=== PATIENT | female | born 1930 | race Caucasian/White ===

== ENCOUNTER 2016-04-25 18:06 | Inpatient (IN) | payer OTHER ==
[~2016-04-25] VITALS: Ht 167.6 cm; Wt 53.7 kg
[~2016-04-25 18:06] MED LIST: /AMLO25TA PO; /MOXI40TA OR; ALB2.5NEB INH; ALBU17IN INH; ALBU17IN2 INH; ALBUTEROL INH; AMLO10TA2 PO; AMLO5TAB2 PO; ASPI325T OR; ASPI81TA85 PO; AUGM500T34 PO; AZIT250T3 PO; Azithromycin PO; COMBAER6 INH; COZA50TA18 OR; FURO40TA2 PO; IRON65TA PO; MAALSUS8 PO; MECL12.5 OR; MICR8CAP PO; NICO21DI4 TD; NICO21PAT TD; OMEP40CA2 PO; PARO20TA2 PO; PRAV20TA2 PO; PRAV40TA PO; PRED10TA PO; PRED20TAB PO; SYMB16INH INH; SYMB80AE IN; TRAM50TA2 OR; TYLE167L PO; TYLE325T5 PO
[2016-04-25 19:22] LABS: BASO % 0.1 % (0.0-1.0); EOS # 0.1 K/mm3 (0.0-0.50); EOS % 0.2 % (0.0-3.0); LARGE UNSTAINED CELL # 0.1 K/mm3 (0.0-0.4); LARGE UNSTAINED CELL % 0.6 % (0.0-4.0); LYMPH # 0.3 K/mm3 (1.5-4.5); LYMPH % 1.4 % (24.0-44.0); MEAN CORPUSCULAR HEMOGLOBIN 24.4 pg (27.0-33.0); MEAN CORPUSCULAR HGB CONC 30.5 g/dl (32.0-36.5); MEAN CORPUSCULAR VOLUME 79.7 fl (80.0-96.0); MONO # 1.2 K/mm3 (0.0-0.8); MONO % 5.4 % (0.0-5.0); NEUTROPHILS # 20.9 K/mm3 (1.8-7.7); NEUTROPHILS % 92.2 % (36.0-66.0); PLATELET COUNT, AUTOMATED 345 k/mm3 (150-450); RED CELL DISTRIBUTION WIDTH 17.8 % (11.5-14.5); WHITE BLOOD COUNT 22.6 K/mm3 (4.0-10.0)
[2016-04-25 19:57] LABS: ABG BASE EXCESS 8.7 (-2.0-2.0); ABG DEVICE NASAL CANN; ABG HCO3 35.5 MEQ/L (22.0-26.0); ABG PARTIAL PRESSURE CO2 58.1 mmHg (35.0-45.0); ABG PARTIAL PRESSURE O2 66.3 mmHg (75.0-100.0); ABG STANDARD HCO3 32.4 MEQ/L (22.0-26.0); ABG TOTAL CO2 37.3 MEQ/L (23.0-31.0); ABG pH (ARTERIAL) 7.404 UNITS (7.350-7.450)
[2016-04-25 20:08] LABS: ANION GAP 8 MEQ/L (8-16); BLOOD UREA NITROGEN 19 MG/DL (7-18); CALCIUM LEVEL 11.5 MG/DL (8.8-10.2); CARBON DIOXIDE LEVEL 34 MEQ/L (21-32); CHLORIDE LEVEL 97 MEQ/L (98-107); CREATININE FOR GFR 1.37 MG/DL (0.55-1.02); GLOMERULAR FILTRATION RATE 39.1 (>32); GLUCOSE, FASTING 177 MG/DL (83-110); POTASSIUM SERUM 3.7 MEQ/L (3.5-5.1); SODIUM LEVEL 139 MEQ/L (136-145)
[2016-04-25] MEDS: HEPARIN SOD (PORCINE) 5000 UNITS/ML VIAL SQ SCH (21:00)
--- NOTE | 2016-04-25 22:20 | REPUSA ---
CT of the chest without contrast Clinical statement: hypoxia, elevated white cell count. Technique: Multiple axial CT images were obtained with 5 mm cuts through the chest without administra tion of contrast. Comparison: 07/30/2013. Findings: There is no thoracic lymphadenopathy. The 5 mm nodule in the left lobe of the thyroid gland is stable. Moderate bilateral emphysematous changes are noted, and have worsened since the prior john paul dy. There is a new small left lower lobe pleural effusion. There is infiltrate in the superior segmen t of the left lower lobe. There is a left upper lobe infiltrate. There is also a left lingular infilt rate. A 7 mm nodule in the lateral superior segment of the left lower lobe is grossly stable. Limited imaging of the upper abdomen does not demonstrate any acute abnormalities. There are no suspicious o sseous lesions. Mild spondylotic changes are seen in the lower thoracic and upper lumbar spine. Impression: 1. New infiltrates demonstrated within the left upper and left lower lobes as described. Small left-s ided pleural effusion is also new. 2. 7 mm nodule in the superior segment of the left lower lobe was seen on the prior study and is nino sly unchanged. 3. Worsening moderate emphysematous changes bilaterally. 4. Stable subcentimeter low attenuation nodule in the left lobe of the thyroid gland.
[2016-04-25] MEDS ORDERED: ZOSYN 2.25 GM VIAL (J2543) As Ordered ONE (22:50)
[2016-04-25] MEDS ORDERED: AMLO10TA2 PO (23:05)
[2016-04-25] MEDS ORDERED: TRAM50TA2 PO (23:05)
[2016-04-25] MEDS ORDERED: PAXI10TA2 PO (23:05)
[2016-04-25] MEDS ORDERED: IPRATROPIUM 0.5MG/ALBUTEROL 2.5MG INH SOL UD 3ML (DUONEB)(J7620) NEB PRN (23:15)
--- NOTE | 2016-04-26 00:56 | EDDOCDS ---
Physician Documentation [facility] Name: Shell Ellis Age: 86 yrs Sex: Female : 1930 Arrival Date: 04/25/2016 Time: 18:06 Bed 10 Private MD: Disposition: 04/25 22:43 Critical Care:. pc Disposition: 04/25/16 22:46 Hospitalization ordered by Nolvia Wahl for Inpatient Admission. Preliminary diagnosis are Bronchopneumonia, unspecified organism - CJ, LLL, Pleural effusion in conditions classified elsewhere - left, Hypoxemia, Chronic obstructive pulmonary disease with acute lower respiratory infection, Unspecified dementia. - Bed requested for PCU. - Status is Inpatient Admission. ko2 - Condition is Stable. - Problem is new. - Symptoms have improved. HPI: 19:36 This 86 yrs old Female presents to ER via Ambulance with complaints of pc Altered Mental Status. 19:36 The history is obtained from the patient's family/friend, EMS providers. Her son states pc that she can no longer live on her own. She has been falling more frequently, not eating very well, and has become more confused with underlying dementia. There is no report of any recent illness: no vomiting or diarrhea, no fevers or chills, no cough or URI symptoms. The family thought she might have had a facial droop earlier today but none on arrival. She is unable to provide any history. The patient has not recently seen a physician. Historical: - Allergies: no known allergies; - Home Meds: 1. paroxetine HCl 10 mg Oral tab 1 tab once daily 2. tramadol 50 mg Oral tab 1 tab daily 3. amlodipine 10 mg Oral tab 1 tab once daily 4. Oxygen 3L nightly - PMHx: COPD; Hypertension; Depression; Dementia; - PSHx: Hysterectomy; - The history from nurses notes was reviewed: and elements of the historical information I have obtained differs from that reported to nursing. - Social history: No barriers to communication noted, The patient speaks fluent [place], Smoking status: Patient uses tobacco products, heavy tobacco smoker. - : The pt / caregiver states he / she is not on anticoagulants. Home medication list is obtained from [employer] import data. - Hospitalizations: : No recent hospitalization is reported. - Exposure Risk Screening:: Unable to Assess. - Immunization history:: All immunizations up-to-date. - Family history: Not pertinent. - Social history:: the patient smokes cigarettes the patient does not drink alcohol. ROS: 19:42 All systems are negative except as listed. pc Exam: 19:42 General Appearance: no acute distress, alert. pc 19:42 EENT: normal eye inspection, ears, nose and throat normal, pharynx normal, mucous membranes moist 19:42 Neck: The exam reveals no acute abnormalities. ROM is normal and painless. No nuchal rigidity is noted.. 19:42 Respiratory: no respiratory distress, Breath sounds: wheezing, scattered. 19:42 CVS: regular pulse rate, regular rhythm, normal S1 and S2, no murmurs, strong peripheral pulses, normal capillary refill. 19:42 Abdomen: soft, non-tender, no organomegaly, normal bowel sounds. 19:42 Back: normal inspection. 19:42 Skin: skin color is normal, warm, dry. 19:42 Extremities: Multiple areas of healed abrasions and skin tears on all extremities . 19:42 Neuro: cranial nerves normal as tested, no motor deficits, no sensory deficits, unable to test orientation because of chronic dementia. 19:42 Psych: normal mood. Vital Signs: 18:12 BP 143 / 65; Pulse 80; Resp 20; Temp 97.4(O); ja5 19:04 Pulse 72 MON; Pulse Ox 90% ; mlc 19:05 BP 126 / 60 (auto/); mlc 19:06 Pulse Ox 91% on NC; ja5 19:19 Pulse 76 MON; Pulse Ox 95% ; mlc 19:20 BP 144 / 58 (auto/); mlc 19:33 Pulse 76 MON; Pulse Ox 94% ; mlc 19:34 Pulse 82 MON; Pulse Ox 93% on 3 lpm NC; mlc 19:35 BP 120 / 58 (auto/); mlc 20:04 Pulse 76 MON; Pulse Ox 88% ; mlc 20:05 BP 110 / 57 (auto/); mlc 20:20 BP 120 / 63 (auto/); mlc 20:35 BP 125 / 58 (auto/); mlc 20:50 BP 110 / 58 (auto/); mlc 20:50 Pulse 74 MON; Pulse Ox 90% ; mlc 21:05 BP 148 / 67 (auto/); mlc 21:19 Pulse 72 MON; Pulse Ox 94% ; mlc 21:20 BP 116 / 55 (auto/); mlc 21:35 BP 103 / 53 (auto/); mlc 21:35 Pulse 70 MON; Pulse Ox 95% ; mlc 21:56 Pulse 72 MON; Pulse Ox 93% ; mlc 21:57 BP 101 / 56 (auto/); mlc 22:05 BP 98 / 56 (auto/); mlc 22:18 Pulse 76 MON; Pulse Ox 90% on 4 lpm NC; mlc 22:20 BP 101 / 55 (auto/); mlc 22:20 Pulse 78 MON; Pulse Ox 91% ; mlc 22:35 BP 94 / 50 (auto/); mlc 22:35 Pulse 76 MON; Pulse Ox 92% ; mlc 22:41 BP 115 / 55 (auto/); mlc 22:42 Pulse 82 MON; Pulse Ox 92% ; mlc 22:45 Temp 99.0(TE); mlc 22:50 BP 106 / 51 (auto/); mlc 22:51 Pulse 72 MON; Pulse Ox 94% ; mlc 23:05 BP 112 / 55 (auto/); mlc 23:06 Pulse 72 MON; Pulse Ox 93% ; mlc 23:10 Weight 51 kg / 112.44 lbs (M); mlc 23:20 BP 99 / 55 (auto/); mlc 23:21 Pulse 72 MON; Pulse Ox 94% ; mlc 23:35 BP 102 / 57 (auto/); mlc 23:36 Pulse 74 MON; Pulse Ox 91% ; mlc 23:50 BP 106 / 53 (auto/); mlc 23:51 Pulse 72 MON; Pulse Ox 94% ; mlc 04/26 00:05 BP 99 / 50 (auto/); mlc 00:06 Pulse 74 MON; Pulse Ox 92% ; mlc 00:20 BP 102 / 52 (auto/); mlc 00:21 Pulse 76 MON; Pulse Ox 92% ; mlc 00:35 BP 101 / 50 (auto/); mlc 00:36 Pulse 78 MON; Pulse Ox 93% ; mlc 00:49 BP 112 / 54; Pulse 82; Resp 18; Temp 99.5; Pulse Ox 91% on 4 lpm NC; Pain 0/10; mlc MDM: 04/25 18:28 Fingerstick Blood Sugar Ordered. EDMS 18:35 Fingerstick Blood Sugar Reviewed. pc 18:36 CT Head Without Contrast Ordered. EDMS 19:14 -Blood Culture (Adults Only), peripheral from different site, or from device/port/PICC pc etc. if present ordered. 19:14 Call Respiratory ordered. pc 19:14 Chemist Steroids/Pulse Ox/q 15 min VS ordered. pc 19:14 IV Saline Lock ordered. pc 19:14 Rhythm Strip to chart ordered. pc 19:14 Obtain sample by nasopharyngeal swab ordered. pc 19:15 -Arterial Blood Gas Ordered. EDMS 19:15 -Blood Culture Ordered. EDMS 19:15 B-Type Natiuretic Peptide Ordered. EDMS 19:15 Basic Metabolic Profile Ordered. EDMS 19:15 CBC with Diff Ordered. EDMS 19:15 Cardiac Injury Profile Ordered. EDMS 19:15 Troponin Ordered. EDMS 19:15 -Influenza A&B Rapid Antigen - Nose Ordered. EDMS 19:16 Chest, 1 View Ordered. EDMS 19:17 ECG WITH READING ER PHYS+CARDIAG ordered. EDMS 19:17 Call Respiratory complete. ml3 19:18 -Blood Culture (Adults Only), peripheral from different site, or from device/port/PICC ml3 etc. if present complete. 19:19 BLOOD CULTURES Ordered. EDMS 19:34 Test interpretation: EKG. pc 19:42 Differential Diagnosis: dementia, frequent falls, no acute medical complaints. Plan: pc CT, labs, EKG, CXR. 19:43 Financial registration complete. gjb 19:57 Straight cath ordered. pc 19:57 B-Type Natiuretic Peptide Reviewed. pc 19:57 CBC with Diff Reviewed. pc 19:57 -Influenza A&B Rapid Antigen - Nose Reviewed. pc 19:58 Urine Culture Ordered. EDMS 19:58 Urinalysis Ordered. EDMS 20:02 -Arterial Blood Gas Reviewed. pc 20:54 Basic Metabolic Profile Reviewed. pc 20:54 Cardiac Injury Profile Reviewed. pc 20:54 Troponin Reviewed. pc 21:24 [facility] Payment Agreement was scanned into [email or web address] and attached to record. gjb 21:28 CT Chest Without Contrast Ordered. EDMS 22:39 CT Chest Without Contrast Reviewed. pc 22:41 Piperacillin-Tazobactam 2.25 grams IVPB once over 30 mins; dilute in 50mL of NS or D5W pc ordered. 22:42 Lactic Acid (Buenrostro tube on ice) Ordered. EDMS 22:42 BED REQUEST+ADM ordered. EDMS 22:43 Data reviewed: old medical records, vital signs, nurses notes, EKG(s), lab test pc results, all radiology studies and available results. Test interpretation: LAB - all labs as ordered have been reviewed, interpreted and considered in the overall management of the clinical presentation; Arterial blood gas is normal except. pO2: 60 pCO2: 58 X-RAY - interpreted by me, 1 view chest interstitial changes, left worst than right interpreted by Radiologist and personally reviewed, Chest CT; CJ, LLL infiltrates, small left pleural effusion, stable nodule. The patient has been re-examined and re-evaluated. The patient's symptoms have mildly improved after treatment. Physician consultation: Dr. Nolvia Wahl was contacted at 22:44, regarding admission. Disposition: The historical points, examination findings, and any diagnostic results supporting the provided diagnosis, were discussed with the patient or legal guardian. The need for further work-up and/or treatment in the hospital was explained. 23:13 Admission / Observation Status ordered. EDMS 23:13 LOW FAT LOW CHOLESTEROL DIET ordered. EDMS 23:14 LEGIONELLA ANTIGEN URINE Ordered. EDMS 23:14 URINE STREP PNEUMONIAE ANTIGEN Ordered. EDMS 23:15 COMPLETE BLOOD COUNT Ordered. EDMS 23:15 RENAL PROFILE Ordered. EDMS 23:15 SPUTUM CULTURE AND GRAM STAIN Ordered. EDMS 23:15 RESPIRATORY PANEL Ordered. EDMS 23:15 MRSA SCREEN Ordered. EDMS 23:34 Thyroid, ST head+neck US Ordered. EDMS 04/26 00:29 THYROID PROFILE Ordered. EDMS 00:46 ARTERIAL BLOOD GAS Ordered. EDMS EC/27 19:34 Rate is 76 beats/min. Rhythm is regular, Normal Sinus Rhythm. QRS [place] is Normal. [place] pc interval is normal. QRS interval is normal. QT interval is normal. No Q waves. T waves are Normal. No ST changes noted. Clinical impression: Normal Sinus Rhythm and RAD. Administered Medications: 23:08 Drug: Piperacillin-Tazobactam 2.25 grams [piperacillin-tazobactam 3.375 gram mlc intravenous solution] Route: IVPB; Infused Over: 30 mins; Site: right antecubital; 23:38 Follow up: IV Status: Completed infusion mlc Critical Care Time: 22:43 Critical care time: Bedside Care: 35 minutes, Consultation: 10 minutes, Family pc Intervention: 15 minutes. Total time: 60 minutes Signatures: Dispatcher [employer] Osiel Perkins MD MD pc Lopresti Dali-Esthela, Supervisor Of Officials Unit ml3 Shira Sheets, RN RN [id number] Noemi Reese,RN RN saba2 Annie Burrell Jessica,RN RN [id number] Ivana Howell RN mlc The chart was reviewed and I authenticate all verbal orders and agree with the evaluation and treatment provided.Corrections: (The following items were deleted from the chart) 22:46 22:43 Test interpretation: LAB - all labs as ordered have been reviewed, interpreted pc and considered in the overall management of the clinical presentation; Arterial blood gas is normal except. pO2: 60 pCO2: 58 X-RAY - interpreted by me, 1 view chest interstitial changes, left worst than right interpreted by Radiologist and personally reviewed, Chest CT; CJ, LLL infiltrates, small left pleural effusion , pc 23:17 23:15 BLOOD CULTURES ordered. EDMS EDMS 23:17 23:15 BLOOD CULTURES ordered. EDMS EDMS 04/26 00:29 04/25 23:32 THYROID PROFILE ordered. EDMS EDMS Attachments: 21:24 [facility] Payment Agreement [email or web address]
--- NOTE | 2016-04-26 00:56 | EDDOCDS ---
Nurse's Notes [facility] Name: Shell Ellis Age: 86 yrs Sex: Female : 1930 Arrival Date: 04/25/2016 Time: 18:06 Bed 10 Private MD: Diagnosis: Bronchopneumonia, unspecified organism-CJ, LLL;Pleural effusion in conditions classified elsewhere-left;Hypoxemia;Chronic obstructive pulmonary disease with acute lower respiratory infection;Unspecified dementia Presentation: 04/25 18:12 Presenting complaint: EMS states: Found by family member/caregiver on floor next to her ja5 bed. Slurred speech and facial droop reported by family. Blood sugar 184 in field. EMS found patient with no deficits but with some AMS which is patients baseline according to family. Last known well time is unknown. Adult Sepsis Screening: Adult Sepsis Screening:. Suicide/Homicide risk assessment- Unable to assess, the patient has an altered level of consciousness. 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 Transition of care: patient was not received from another setting of care. 18:12 Acuity: CHARITY Level 2 [facility] 18:12 Method Of Arrival: Ambulance ja5 Triage Assessment: 18:12 General: Appears in no apparent distress. Pain: Location: everywhere. Neurological: [facility] Level of Consciousness is awake, confused, Oriented to person, Contact Center Professional are equal bilaterally Moves all extremities. Speech is normal, Facial symmetry appears normal. Historical: - Allergies: no known allergies; - Home Meds: 1. paroxetine HCl 10 mg Oral tab 1 tab once daily 2. tramadol 50 mg Oral tab 1 tab daily 3. amlodipine 10 mg Oral tab 1 tab once daily 4. Oxygen 3L nightly - PMHx: COPD; Hypertension; Depression; Dementia; - PSHx: Hysterectomy; - The history from nurses notes was reviewed: and elements of the historical information I have obtained differs from that reported to nursing. - Social history: No barriers to communication noted, The patient speaks fluent Peruvian, Smoking status: Patient uses tobacco products, heavy tobacco smoker. - : The pt / caregiver states he / she is not on anticoagulants. Home medication list is obtained from [employer] import data. - Hospitalizations: : No recent hospitalization is reported. - Exposure Risk Screening:: Unable to Assess. - Immunization history:: All immunizations up-to-date. - Family history: Not pertinent. - Social history:: the patient smokes cigarettes the patient does not drink alcohol. Screenin:31 Screening information is obtained from family members, the caregiver. Fall risk: At mlc risk due to age, prior history of falls. Assistance ADL's: Requires assistance with meal preparation, this assistance is provided by family members, Home Health Aides, bathing, assistance is provided by Home Health Aides, dressing, assistance is provided by Home Health Aides, toileting, assistance is provided by Home Health Aides, housework, assistance is provided by Home Health Aides. Abuse/DV Screen: The patient / caregiver reports he/she is: not in a situation that causes fear, pain or injury. Nutritional screening: No deficits noted. Advance Directives: Currently, there is no health care proxy. There is no active DNR order. There is no living will. There is no Power of Road Roller Engineer. home support is adequate. Assessment: 18:26 General: Appears in no apparent distress, Behavior is cooperative, flat. Neurological: ja5 Level of Consciousness is awake, confused, Oriented to person. Cardiovascular: Capillary refill < 3 seconds Heart tones S1 S2 present Rhythm is sinus rhythm No ectopy. Respiratory: Airway is patent Respiratory effort is even, unlabored, Respiratory pattern is regular, symmetrical, Breath sounds are clear bilaterally. Derm: Skin is pink, warm & dry. 18:54 General: Patient is laying in stretcher in low position, respirations are even and ja5 unlabored. Patient has no slurred speech, hostess are equal bilat, no facial drooping present. Awaiting family to arrive to finish triage.. 19:13 General: Appears in no apparent distress, comfortable, Behavior is cooperative, drowsy, mlc quiet. Pain: Denies pain. Neurological: Level of Consciousness is lethargic, Oriented to person, Weakness Facial symmetry appears normal. Cardiovascular: Heart tones S1 S2 present Rhythm is sinus rhythm. Respiratory: Airway is patent Respiratory effort is even, unlabored, Respiratory pattern is regular, Breath sounds are clear bilaterally. Derm: Skin has skin tears on skin tear and scabbing noted on right FA. dime-sized scab to right knee. Skin is normal, finger nails yellowed. 19:34 Reassessment: Brother very concerned about patient returning home, states that she has mlc deteriorated that past month. brother concerned that patient will fall again at home since she lives by herself. . 20:30 Reassessment: Patient appears in no apparent distress at this time. Patient denies pain mlc at this time. no changes since prior. resp easy/unlabored. . 21:38 General: Appears in no apparent distress, comfortable, to be sleeping. Respiratory: mlc Airway is patent Respiratory effort is even, unlabored, Respiratory pattern is regular. 21:47 Reassessment: pt taken to CT. mlc 22:19 General: Appears in no apparent distress, comfortable, to be sleeping. Respiratory: mlc Airway is patent Respiratory effort is even, unlabored, Respiratory pattern is regular. 23:10 General: Appears in no apparent distress, comfortable, to be sleeping. awakens easily. mlc 04/26 00:49 General: Appears in no apparent distress, comfortable. Neurological: Level of mlc Consciousness is confused, Oriented to person. Respiratory: Airway is patent Respiratory effort is even, unlabored, Respiratory pattern is regular. Vital Signs: 04/25 18:12 BP 143 / 65; Pulse 80; Resp 20; Temp 97.4(O); ja5 19:04 Pulse 72 MON; Pulse Ox 90% ; mlc 19:05 BP 126 / 60 (auto/); mlc 19:06 Pulse Ox 91% on NC; ja5 19:19 Pulse 76 MON; Pulse Ox 95% ; mlc 19:20 BP 144 / 58 (auto/); mlc 19:33 Pulse 76 MON; Pulse Ox 94% ; mlc 19:34 Pulse 82 MON; Pulse Ox 93% on 3 lpm NC; mlc 19:35 BP 120 / 58 (auto/); mlc 20:04 Pulse 76 MON; Pulse Ox 88% ; mlc 20:05 BP 110 / 57 (auto/); mlc 20:20 BP 120 / 63 (auto/); mlc 20:35 BP 125 / 58 (auto/); mlc 20:50 BP 110 / 58 (auto/); mlc 20:50 Pulse 74 MON; Pulse Ox 90% ; mlc 21:05 BP 148 / 67 (auto/); mlc 21:19 Pulse 72 MON; Pulse Ox 94% ; mlc 21:20 BP 116 / 55 (auto/); mlc 21:35 BP 103 / 53 (auto/); mlc 21:35 Pulse 70 MON; Pulse Ox 95% ; mlc 21:56 Pulse 72 MON; Pulse Ox 93% ; mlc 21:57 BP 101 / 56 (auto/); mlc 22:05 BP 98 / 56 (auto/); mlc 22:18 Pulse 76 MON; Pulse Ox 90% on 4 lpm NC; mlc 22:20 BP 101 / 55 (auto/); mlc 22:20 Pulse 78 MON; Pulse Ox 91% ; mlc 22:35 BP 94 / 50 (auto/); mlc 22:35 Pulse 76 MON; Pulse Ox 92% ; mlc 22:41 BP 115 / 55 (auto/); mlc 22:42 Pulse 82 MON; Pulse Ox 92% ; mlc 22:45 Temp 99.0(TE); mlc 22:50 BP 106 / 51 (auto/); mlc 22:51 Pulse 72 MON; Pulse Ox 94% ; mlc 23:05 BP 112 / 55 (auto/); mlc 23:06 Pulse 72 MON; Pulse Ox 93% ; mlc 23:10 Weight 51 kg (M); mlc 23:20 BP 99 / 55 (auto/); mlc 23:21 Pulse 72 MON; Pulse Ox 94% ; mlc 23:35 BP 102 / 57 (auto/); mlc 23:36 Pulse 74 MON; Pulse Ox 91% ; mlc 23:50 BP 106 / 53 (auto/); mlc 23:51 Pulse 72 MON; Pulse Ox 94% ; mlc 04/26 00:05 BP 99 / 50 (auto/); mlc 00:06 Pulse 74 MON; Pulse Ox 92% ; mlc 00:20 BP 102 / 52 (auto/); mlc 00:21 Pulse 76 MON; Pulse Ox 92% ; mlc 00:35 BP 101 / 50 (auto/); mlc 00:36 Pulse 78 MON; Pulse Ox 93% ; mlc 00:49 BP 112 / 54; Pulse 82; Resp 18; Temp 99.5; Pulse Ox 91% on 4 lpm NC; Pain 0/10; mlc Vitals: 04/25 18:12 Log In Time: April 25, 2016 at 06:20. ja5 ED Course: 18:07 Patient visited by Felicia Gill, Demand Equipment Repairer. deg 18:07 Lissette Rodriguez,RN is Primary Nurse. deg 18:07 Shira Sheets, LACHO is Primary Nurse. deg 18:07 Patient moved to Waiting deg 18:07 Patient moved to 10 deg 18:20 Triage Initiated [facility] 18:34 Osiel Neville MD is Attending Physician. pc 18:54 Patient visited by Lissette Rodriguez RN. ja5 19:02 Ivana Howell RN is Primary Nurse. mlc 19:04 Inserted saline lock: 20 gauge in right antecubital area by Kaitlynn Sheets RN. mlc 19:07 Primary Nurse role handed off by Lissette Rodriguez RN ja5 19:07 Primary Nurse role handed off by Shira Sheets RN ja5 19:13 Patient visited by Osiel Neville MD. pc 19:16 Patient visited by Ivana Howell RN. mlc 19:17 -Blood Culture Sent. mlc 19:17 B-Type Natiuretic Peptide Sent. mlc 19:17 CBC with Diff Sent. mlc 19:22 Patient visited by Yani Garcia PCA. gucci 19:22 EKG done. (by ED staff). Reviewed by Osiel Neville MD. gucci 19:26 Patient moved to Radiology usama 19:30 BLOOD CULTURES Sent. mlc 19:30 -Influenza A&B Rapid Antigen - Nose Sent. mlc 19:31 Basic Metabolic Profile Sent. mlc 19:31 Cardiac Injury Profile Sent. mlc 19:31 Troponin Sent. mlc 19:36 Patient visited by Ivana Howell RN. mlc 19:48 Patient moved to 10 mlc 19:54 -Arterial Blood Gas Sent. nk1 20:54 Patient visited by Osiel Neville MD. pc 21:00 Straight cath inserted 8fr returned clear yellow urine. Patient tolerated well. feb 21:24 [facility]LY [facility] Payment Agreement was scanned into [facility] and attached to record. gjb 21:38 Patient visited by Ivana Howell RN. mlc 22:20 Patient visited by Ivana Howell RN. mlc 22:31 CT Chest Without Contrast Returned. EDMS 22:45 Nolvia Wahl is Hospitalizing Provider. pc 23:08 Lactic Acid (Buenrostro tube on ice) Sent. mlc 23:11 Patient visited by Ivana Howell RN. mlc 04/26 00:49 The patient / caregiver is instructed regarding the plan of care and ED course. mlc 00:49 No procedures done that require assistance. mlc Administered Medications: 04/25 23:08 Drug: Piperacillin-Tazobactam 2.25 grams [piperacillin-tazobactam 3.375 gram mlc intravenous solution] Route: IVPB; Infused Over: 30 mins; Site: right antecubital; 23:38 Follow up: IV Status: Completed infusion mlc RT: 19:54 ABG's drawn from left radial artery pressure held for 5 minutes no bleeding noted nk1 pressure bandage applied specimen sent pt. tolerated well. O2 via nasal cannula \T\ 3L/min O2 via . Order Results: Lab Order: Fingerstick Blood Sugar; [facility]' 04/25/16 18:19 Test: BEDSIDE GLUCOSE; Value: 178; Range: 83-110; Abnormal: Above high normal; Units: MG/DL; Status: F Lab Order: -Arterial Blood Gas; [facility]' 04/25/16 19:46 Test: ABG pH (ARTERIAL); Value: 7.404; Range: 7.350-7.450; Units: UNITS; Status: F Test: ABG PARTIAL PRESSURE CO2; Value: 58.1; Range: 35.0-45.0; Abnormal: Above high normal; Units: mmHg; Status: F Test: ABG PARTIAL PRESSURE O2; Value: 66.3; Range: 75.0-100.0; Abnormal: Below low normal; Units: mmHg; Status: F Test: ABG TOTAL CO2; Value: 37.3; Range: 23.0-31.0; Abnormal: Above high normal; Units: MEQ/L; Status: F Test: ABG HCO3; Value: 35.5; Range: 22.0-26.0; Abnormal: Above high normal; Units: MEQ/L; Status: F Test: ABG BASE EXCESS; Value: 8.7; Range: -2.0-2.0; Abnormal: Above high normal; Status: F Test: ABG STANDARD HCO3; Value: 32.4; Range: 22.0-26.0; Abnormal: Above high normal; Units: MEQ/L; Status: F Test: ABG O2 SATURATION; Value: 93.1; Range: 95.0-99.0; Abnormal: Below low normal; Units: %; Status: F Test: ABG DEVICE; Value: NASAL RUTH; Status: F Lab Order: B-Type Natiuretic Peptide; SPEC' 04/25/16 18:39 Test: BRAIN NATRIURETIC PEPTIDE; Value: 131; Range: <100; Abnormal: Above high normal; Units: PG/ML; Status: F Lab Order: Basic Metabolic Profile; SPEC'M 04/25/16 19:29 Test: GLUCOSE, FASTING; Value: 177; Range: 83-110; Abnormal: Above high normal; Units: MG/DL; Status: F Test: BLOOD UREA NITROGEN; Value: 19; Range: 7-18; Abnormal: Above high normal; Units: MG/DL; Status: F Test: CREATININE FOR GFR; Value: 1.37; Range: 0.55-1.02; Abnormal: Above high normal; Units: MG/DL; Status: F Test: GLOMERULAR FILTRATION RATE; Value: 39.1; Range: >32; Status: F Test: SODIUM LEVEL; Value: 139; Range: 136-145; Units: MEQ/L; Status: F Test: POTASSIUM SERUM; Value: 3.7; Range: 3.5-5.1; Units: MEQ/L; Status: F Test: CHLORIDE LEVEL; Value: 97; Range: 98-107; Abnormal: Below low normal; Units: MEQ/L; Status: F Test: CARBON DIOXIDE LEVEL; Value: 34; Range: 21-32; Abnormal: Above high normal; Units: MEQ/L; Status: F Test: ANION GAP; Value: 8; Range: 8-16; Units: MEQ/L; Status: F Test: CALCIUM LEVEL; Value: 11.5; Range: 8.8-10.2; Abnormal: Above high normal; Units: MG/DL; Status: F Test Note: ; Units are mL/min/1.73 m2 Chronic Kidney Disease Staging per NKF: Stage I & II GFR >=60 Normal to Mildly Decreased Stage III GFR 30-59 Moderately Decreased Stage IV GFR 15-29 Severely Decreased Stage V GFR <15 Very Little GFR Left ESRD GFR <15 on METAL FABRICATION SUPERVISOR Lab Order: CBC with Diff; SPEC'M 04/25/16 18:39 Test: WHITE BLOOD COUNT; Value: 22.6; Range: 4.0-10.0; Abnormal: Above high normal; Units: K/mm3; Status: F Test: RED BLOOD COUNT; Value: 5.79; Range: 4.00-5.40; Abnormal: Above high normal; Units: M/mm3; Status: F Test: HEMOGLOBIN; Value: 14.1; Range: 12.0-16.0; Units: g/dl; Status: F Test: HEMATOCRIT; Value: 46.2; Range: 36.0-47.0; Units: %; Status: F Test: MEAN CORPUSCULAR VOLUME; Value: 79.7; Range: 80.0-96.0; Abnormal: Below low normal; Units: fl; Status: F Test: MEAN CORPUSCULAR HEMOGLOBIN; Value: 24.4; Range: 27.0-33.0; Abnormal: Below low normal; Units: pg; Status: F Test: MEAN CORPUSCULAR HGB CONC; Value: 30.5; Range: 32.0-36.5; Abnormal: Below low normal; Units: g/dl; Status: F Test: RED CELL DISTRIBUTION WIDTH; Value: 17.8; Range: 11.5-14.5; Abnormal: Above high normal; Units: %; Status: F Test: PLATELET COUNT, AUTOMATED; Value: 345; Range: 150-450; Units: k/mm3; Status: F Test: NEUTROPHILS %; Value: 92.2; Range: 36.0-66.0; Abnormal: Above high normal; Units: %; Status: F Test: LYMPH %; Value: 1.4; Range: 24.0-44.0; Abnormal: Below low normal; Units: %; Status: F Test: MONO %; Value: 5.4; Range: 0.0-5.0; Abnormal: Above high normal; Units: %; Status: F Test: EOS %; Value: 0.2; Range: 0.0-3.0; Units: %; Status: F Test: BASO %; Value: 0.1; Range: 0.0-1.0; Units: %; Status: F Test: LARGE UNSTAINED CELL %; Value: 0.6; Range: 0.0-4.0; Units: %; Status: F Test: NEUTROPHILS #; Value: 20.9; Range: 1.8-7.7; Abnormal: Above high normal; Units: K/mm3; Status: F Test: LYMPH #; Value: 0.3; Range: 1.5-4.5; Abnormal: Below low normal; Units: K/mm3; Status: F Test: MONO #; Value: 1.2; Range: 0.0-0.8; Abnormal: Above high normal; Units: K/mm3; Status: F Test: EOS #; Value: 0.1; Range: 0.0-0.50; Units: K/mm3; Status: F Test: BASO #; Value: 0.0; Range: 0.0-0.2; Units: K/mm3; Status: F Test: LARGE UNSTAINED CELL #; Value: 0.1; Range: 0.0-0.4; Units: K/mm3; Status: F Lab Order: Cardiac Injury Profile; SPEC'M 04/25/16 19:29 Test: CPK CREATINE PHOSPHOKINASE; Value: 176; Range: 26-192; Units: U/L; Status: F Test: CK-MB VALUE MASS; Value: 4.0; Range: 0.0-3.6; Abnormal: Above high normal; Units: NG/ML; Status: F Test: MB/CK RELATIVE INDEX; Value: 2.27; Range: < OR =4; Status: F Test Note: ; DIAGNOSIS CRITERIA MMB ng/ml Relative Index (RI) NON-AMI < or = 5 N/A BUENROSTRO ZONE > 5 < or = 4 AMI > 5 > 4 Lab Order: Troponin; SPEC'M 04/25/16 19:29 Test: TROPONIN I; Value: < 0.02; Range: < 0.10; Units: NG/ML; Status: F Test Note: ; Troponin I Reference Interval for [employer] LOCI: 99th Percentile= 0.00-0.045 ng/ml Risk Stratification: <= 0.10 ng/ml Decreased Risk for Adverse Clinical Events. 0.10-1.50 ng/ml Increased Risk for Adverse Clinical Events. Evaluation of additional criterion and/or repeat testing in 2-6 hours is suggested to rule out myocardial damage. >= 1.50 ng/ml Indicative of Myocardial Injury. Lab Order: -Influenza A&B Rapid Antigen - Nose; SPEC'M 04/25/16 19:28 Test: INFLUENZA A RAPID SCR by ICA; Value: INFLUENZA A RESULTS NEGATIVE; Status: F Test: INFLUENZA A RAPID SCR by ICA; Value: Comments:; Status: F Test: INFLUENZA B RAPID SCR by ICA; Value: INFLUENZA B RESULTS NEGATIVE; Status: F Test Note: ; The Influenza test is a direct rapid immunoassay for the qualitative detection of Influenza viral antigen. Cell culture (Viral Culture) testing should be considered to confirm NEGATIVE results and to assist in detecting other viruses that can provide similar clinical symptoms. Please contact the lab within 24 hours ([phone]) if confirmatory testing is desired. Lab Order: Urinalysis; SPEC'M 04/25/16 21:06 Test: APPEARANCE, URINE; Value: CLOUDY; Range: CLEAR; Status: F Test: COLOR, URINE; Value: YELLOW; Range: YELLOW; Status: F Test: PH,URINE; Value: 8.0; Range: 5.0-9.0; Units: UNITS; Status: F Test: SPECIFIC GRAVITY URINE AUTO; Value: 1.008; Range: 1.002-1.035; Status: F Test: PROTEIN, URINE AUTO; Value: NEGATIVE; Range: NEGATIVE; Units: mg/dL; Status: F Test: GLUCOSE, URINE (UA) AUTO; Value: NEGATIVE; Range: NEGATIVE; Units: mg/dL; Status: F Test: KETONE, URINE AUTO; Value: NEGATIVE; Range: NEGATIVE; Units: mg/dL; Status: F Test: UROBILINOGEN, URINE AUTO; Value: 0.2; Range: 0.0-2.0; Units: mg/dL; Status: F Test: BILIRUBIN, URINE AUTO; Value: NEGATIVE; Range: NEGATIVE; Status: F Test: NITRITE, URINE AUTO; Value: NEGATIVE; Range: NEGATIVE; Status: F Test: LEUKOCYTE ESTERASE, URINE AUTO; Value: NEGATIVE; Range: NEGATIVE; Status: F Test: BLOOD, URINE BLOOD; Value: NEGATIVE; Range: NEGATIVE; Status: F Test: WBC, URINE AUTO; Value: 2; Range: 0-3; Units: /HPF; Status: F Test: RBC, URINE AUTO; Value: 1; Range: 0-3; Units: /HPF; Status: F Test: BACTERIA, URINE AUTO; Value: NEGATIVE; Range: NEGATIVE; Status: F Test: SQUAMOUS EPITHELIAL CELL UR AU; Value: 0; Range: 0-6; Units: /HPF; Status: F Test: MUCUS, URINE; Value: SMALL; Range: NEGATIVE; Status: F Test: HYALINE CAST, URINE AUTO; Value: 0; Range: 0-1; Units: /LPF; Status: F Test: AMORPHOUS SEDIMENT; Value: SMALL; Range: NEGATIVE; Abnormal: Above high normal; Status: F Lab Order: Lactic Acid (Buenrostro tube on ice); SPEC'M 04/25/16 23:05 Test: LACTIC ACID SEPSIS PROTOCOL; Value: 1.2; Range: 0.4-2.0; Units: MMOL/L; Status: F Radiology Order: CT Chest Without Contrast Test: CT Chest Without Contrast REASON FOR EXAMINATION: elevated WBCs, hypoxia; ; CT of the chest without contrast; Clinical statement: hypoxia, elevated white cell count.; Technique: Multiple axial CT images were obtained with 5 mm cuts through the chest without administra; tion of contrast.; Comparison: 07/30/2013.; Findings: There is no thoracic lymphadenopathy. The 5 mm nodule in the left lobe of the thyroid gland; is stable. Moderate bilateral emphysematous changes are noted, and have worsened since the prior john paul; dy. There is a new small left lower lobe pleural effusion. There is infiltrate in the superior segmen; t of the left lower lobe. There is a left upper lobe infiltrate. There is also a left lingular infilt; rate. A 7 mm nodule in the lateral superior segment of the left lower lobe is grossly stable. Limited; imaging of the upper abdomen does not demonstrate any acute abnormalities. There are no suspicious o; sseous lesions. Mild spondylotic changes are seen in the lower thoracic and upper lumbar spine.; Impression:; 1. New infiltrates demonstrated within the left upper and left lower lobes as described. Small left-s; ided pleural effusion is also new.; 2. 7 mm nodule in the superior segment of the left lower lobe was seen on the prior study and is nino; sly unchanged.; 3. Worsening moderate emphysematous changes bilaterally.; 4. Stable subcentimeter low attenuation nodule in the left lobe of the thyroid gland.; ; Outcome: 22:46 Decision to Hospitalize by Provider. 04/26 00:44 Discharge Assessment: Patient awake, confused, patient administered narcotics - no. The mlc following High Risk Discharge criteria are identified: None. Admitted to PCU accompanied by nurse, accompanied by tech, with oxygen, on monitor, with chart. Condition: stable. CT Study completed. Admission hand-off: Report Faxed Fax receipt verified by LACHO Llanos. Property :Personal belongings accompany Pt. 00:56 Patient left the ED. ko2 Signatures: Dispatcher [employer] EDMS Osiel Neville MD MD pc Murray, Denise, Demand Equipment Repairer Unit deg Cholo, LACHO Mason RN, Floyd fab Kruger, Nora,RT RT nk1 Shira Sheets RN RN jc4 Jose, Yani, HOME AID HOME AID gucci Ivana HowellRN Noemi Varghese RN RN ko2 Annie Burrell JessicaRN RN ja5 MTDD
[2016-04-26 01:00] VITALS: BP 126/58
[2016-04-26] MEDS: NS 1,000 ML IV SCH ×2 (01:35→20:16)
[2016-04-26] MEDS: AZITHROMYCIN INJ 500 MG, VIAL MATE ADAPTER 1 EACH in D5W 250 ML IV SCH (01:36)
[2016-04-26] MEDS: IPRATROPIUM 0.5MG/ALBUTEROL 2.5MG INH SOL UD 3ML (DUONEB)(J7620) NEB SCH ×4 (02:00→20:27)
[2016-04-26] MEDS: cefTRIAXone SOD 2 GM in D5W MINI-BAG PLUS 50 ML IV SCH (03:04)
[2016-04-26 04:00] VITALS: BP 114/59
[2016-04-26 05:58] LABS: MEAN CORPUSCULAR HEMOGLOBIN 24.5 pg (27.0-33.0); MEAN CORPUSCULAR VOLUME 78.9 fl (80.0-96.0); RED CELL DISTRIBUTION WIDTH 18.5 % (11.5-14.5); WHITE BLOOD COUNT 20.2 K/mm3 (4.0-10.0)
--- NOTE | 2016-04-26 06:08 | HPE ---
DATE OF ADMISSION: 04/25/2016 INPATIENT HOSPITALIST ATTENDING: Dr. Ana Gutierrez CHIEF COMPLAINT: Altered mental status, generalized weakness, slurred speech. HISTORY OF PRESENT ILLNESS: 86-year-old with history of chronic obstructive pulmonary disease (COPD), hypertension, depression and dementia, lives alone with brother and rgmyaz-qg-jix checking up on her, was brought in by ambulance today after she was found at home by her neighbor looking pale on the floor. Patient was thought to have had some slurring of speech and facial drooping was brought in for evaluation. Patient is demented, unable to provide any of the history. Otvxmf-vj-gvr was able to provide some history according to the neighbor. Jcwcxf-xe-exx states that for the past few months patient has been unable to remember where she is, has been unable to care for herself. Her brother as well as the wrdojv-hu-nbj have hired Hailee to check up on 2 hours per day, but Hailee works and has a family to take care of. They have also instructed one of the neighbors, Yessenia, to check up on Mrs. Ellis at home at least once a day. Mrs. Ellis has spoken to Yessenia that her brother had dropped her off from [place] but at that time patient was already at home and had not gone anywhere. She appears to be much more forgetful and disoriented. She has been falling constantly from bed to the dresser. She has a box spring on the floor without legs and has been unable to get up several times. When Yessenia came to check up on her today, she was found on the floor pale. She denied any chest pain, pressure or tightness, shortness of breath, fever or chills. She was noted to be unable to care for herself. Usually urinates in her diaper and drops her diapers everywhere in the apartment. According to the mnozyg-iq-yhr, patient does have a son in [place] who is currently not involved in her care. He is currently living in a penitentiary house secondary to drug issues in the past. Patient has been unable to bathe herself, unable to perform activities of daily living and was found by the neighbor on the floor today. Patient's family is requesting for placement. In the emergency room, she was found to have left upper and left lower lobe pneumonia and a very small pleural effusion. Hospitalist service was called for admission for treatment for community- acquired pneumonia as well as for placement due to inability to care for herself. PAST MEDICAL HISTORY: 1. COPD. 2. Hypertension. 3. Depression. 4. Dementia. 5. Chronic kidney disease, stage III. 6. Dyslipidemia. 7. History of anxiety. 8. Chronic back pain. PAST SURGICAL HISTORY: 1. Hysterectomy. 2. Tonsillectomy as a child. ALLERGIES: NO KNOWN DRUG ALLERGIES. HOME MEDICATIONS: - paroxetine 10 mg daily - tramadol 50 daily - amlodipine 10 mg daily - oxygen 3 liters nasal cannula nightly REVIEW OF SYSTEMS: Could not be obtained as the patient is confused and demented. History is obtained from the patient's daglzr-fu-kao by telephone. SOCIAL HISTORY: Patient has smoked for over 50 years. Lives alone. Unable to care for herself. PHYSICAL EXAMINATION: Blood pressure is 143/65, pulse 80, respiratory rate 20, temperature 97.4, 90% on 3 liters nasal cannula. Generally patient is awake, alert, oriented to herself only. She is unable to provide a history. Pupils are round, reactive to light and accommodation. No facial asymmetry. No slurring of speech. Patient is edentulous. Patient has multiple ecchymotic areas on bilateral upper extremities. She appears older than her stated age, cachectic appearing. She is arousable and sleeping with her mouth open and mumbles "what" but does not follow full commands. Lungs are diminished with crackles at left upper lobe and left base. Air entry is decreased on the left. Heart: S1, S2. Sinus. Abdomen is soft, nontender, nondistended. Positive bowel sounds. Extremities: No cyanosis, clubbing or pitting edema. EKG: Sinus rhythm, ventricular rate of 72, right axis deviation, nonspecific T wave changes. LABORATORY DATA: White count 22.6, hemoglobin 14, hematocrit 46, platelet count 345, 92% neutrophils. Sodium 139, potassium 3.7, chloride 97, bicarbonate 34, BUN 19, creatinine 1.37, glucose 177, lactic acid 1.2, calcium 11.5. Total CK 176, MB fraction of 4. Troponin less than 0.02. BNP of 131. IMAGING STUDY: Chest CT: Left upper and left lower lobe infiltrates. Small left-sided pleural effusion. 7 mm left lower lobe thyroid nodule unchanged from prior. Moderate emphysema. MICROBIOLOGY: Blood cultures pending. UA negative leukocyte esterase, 2 WBCs, negative bacteria, negative nitrites. ASSESSMENT AND PLAN: This is an 86-year-old female who lives alone, history of chronic obstructive pulmonary disease, on oxygen nightly of 3 liters, hypertension, depression, dementia, hysterectomy was brought in after being found on the floor by the neighbor. Patient's glucose was within normal limits. 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 Patient was found to have left upper and lower lobe pneumonia with white count 22,000, was afebrile. According to the family, patient has been unable to be care for herself and unable to bathe and uses diapers and leaves her diapers all over her apartment. Family is requesting placement. Patient will be admitted as an inpatient for two midnights. Hospitalist attending, Dr. Ana Gutierrez, will be assigned to her case at 7 a.m. on 04/26/2016 for the following acute issues. 1. Community-acquired left upper and left lower pneumonia with small left pleural effusion. Patient will be given ceftriaxone, azithromycin, nebulizer treatments, supplemental oxygen, intravenous fluids. Lactic acid is normal. 2. Altered mental status secondary to pneumonia. Patient's underlying condition will be treated. Will check an arterial blood gas (ABG) in light of prior history of COPD. She has no apparent wheezing on examination. Therefore, will not give any steroids. 3. COPD. Supplemental oxygen for now. No active wheezing on examination. Will check an arterial blood gas to rule out hypercarbia as reason for her altered mental status along with an infection. Patient's CO2 level is quite elevated at 58, but her pH is still well compensated at 7.4. Will recheck a repeat ABG. 4. Hypertension. Her medications could not be verified. Will verify at 6 a.m. pharmacy. To call outpatient pharmacist in the morning. 5. Chronic dementia. Patient is unable to care for herself at home and therefore will require placement when discharged. 6. Deep venous thrombosis (DVT) prophylaxis with subcutaneous heparin. MTDD
[2016-04-26 06:16] LABS: ALBUMIN 2.7 GM/DL (3.2-5.2); CALCIUM LEVEL 10.5 MG/DL (8.8-10.2); CREATININE FOR GFR 2.03 MG/DL (0.55-1.02); GLOMERULAR FILTRATION RATE 24.8 (>32); PHOSPHORUS LEVEL 3.2 MG/DL (2.5-4.9); POTASSIUM SERUM 3.9 MEQ/L (3.5-5.1); THYROXINE (T4) 8.1 UG/DL (4.5-12.0)
--- NOTE | 2016-04-26 06:43 | REP ---
CT study of the brain without contrast: History: CVA greater than 4.[address] study November 30, 2015. CT findings: Digital lateral crnp radiograph is unremarkable. Bone window settings demonstrate an intact bony calvarium. Visualized paranasal sinuses are clear. There is some vascular calcification in the carotid siphons bilaterally. No intraorbital abnormality is seen. There is mild diffuse cerebral atrophy. Mild small vessel periventricular white matter changes are seen as before. There is no evidence of intracranial hemorrhage. There is a small lacunar infarct in the head of the caudate nucleus on the right unchanged. No mass, new infarction, extra-axial fluid collection or midline shift is seen. Impression: Vascular calcification, diffuse atrophy and small vessel changes. Old lacunar infarct in the head of the caudate nucleus on the right unchanged. No acute intracranial abnormality. Signed by Dennis Shanks MD 04/26/2016 08:29 A
[2016-04-26 08:00] VITALS: BP 121/60
--- NOTE | 2016-04-26 09:03 | REP ---
PORTABLE CHEST: Single portable view of the chest is performed. There is mild cardiomegaly. There appears to be mild vascular congestion and there are diffuse interstitial infiltrates left greater than right. The findings may be on the basis of mild congestive heart failure and pulmonary edema. There is some calcification of the thoracic aorta. IMPRESSION: Mild cardiomegaly, vascular congestion with diffuse increased interstitial opacities may be on the basis of congestive heart failure and interstitial edema. Signed by Dada Buenrostro MD 04/26/2016 04:49 P
[2016-04-26] MEDS: HEPARIN SOD (PORCINE) 5000 UNITS/ML VIAL SQ SCH ×2 (09:58→20:16)
[2016-04-26 12:00] VITALS: BP 123/61
--- NOTE | 2016-04-26 14:46 | REP ---
REASON: Acute on chronic renal disease. COMPARISON ULTRASOUND: None. Multiple ultrasonographic images of the right kidney show the right kidney to measure 10.7 x 4.1 x 3.4 cm. There is a diffuse increase in the renal cortical echoes with preservation of cortical medullary differentiation. There is no hydronephrosis. There are no masses. The left kidney measures 10.3 x 4 x 4.6 cm. In the interpolar region of the left kidney anteriorly, there is a 1.3 x 0.8 x 1.2 cm sized anechoic structure exhibiting posterior wall enhancement and increased through transmission consistent with a small cyst. There is a diffuse increase in the renal cortical echoes with preservation of corticomedullary differentiation. There is no evidence of a solid mass or hydronephrosis. IMPRESSION: 1. Increased bilateral renal cortical echoes consistent with medical renal disease and for which clinical correlation is recommended. 2. Small simple appearing left renal cyst. Signed by Bry Fonseca DO 04/26/2016 03:49 P
--- NOTE | 2016-04-26 15:11 | REP ---
THYROID SONOGRAPHY: HISTORY: Thyroid nodule. Comparison is made with CT study of the chest from April 25, 2016 and July 30, 2013. FINDINGS: Thyroid isthmus is 0.6 cm thick. Right lobe dimensions are 3.7 x 1.4 x 1.3 cm. Left lobe measures 3.2 x 1.5 x 1.4 cm. Visualization of the inferior poles is somewhat inhibited by subclavicular position. Multiple cysts are seen bilaterally. There is a solid nodule on the right measuring 1.6 x 0.6 x 0.9 cm. In the right lobe, there is also a 1.0 x 0.8 x 0.5 cm cyst. In the left, the largest cyst measures 0.7 x 0.6 x 0.4 cm. This is visible on the previous day's CT study. The solid nodule seen by ultrasound on the right is not visualized by CT. IMPRESSION: Multiple simple thyroid cysts bilaterally. Solid nodule 1.6 cm in greatest diameter in the right lobe. Multinodular thyroid. Signed by Dennis Shanks MD 04/26/2016 04:44 P
[2016-04-26] MEDS: PARoxetine 10MG TABLET PO SCH (15:22)
[2016-04-26 16:00] VITALS: BP 104/52
--- NOTE | 2016-04-26 16:11 | IPNPDOC ---
Subjective Date Seen The patient was seen on 04/26/16. Subjective Chief Complaint/HPI The patient is a 86-year-old female admitted with a reason for visit of Community Acquired Bacterial Pneumonia. Events since last encounter limited history given advance dementia, reported wanting to go home. SOB, observed, denied chest pain General: Denies: Chills, Fatigue Constitutional: Denies: Chills, Fever ENT: Denies: Head Aches Pulmonary: Reports: Cough, Dyspnea Cardiovascular: Denies: Chest Pain, Palpitations Gastrointestinal: Denies: Abdominal Pain, Diarrhea, Nausea, Vomiting Objective Physical Examination General Exam: Positive: Alert, Mild Distress Eye Exam: Positive: PERRLA ENT Exam: Positive: Atraumatic, Mucous membr. moist/pink Neck Exam: Positive: Supple Chest Exam: Positive: Rales, Rhonchi Heart Exam: Positive: Normal S1, Normal S2, Rate Normal Telemetry: Positive: Sinus Abdomen Exam: Positive: Normal bowel sounds, Soft, Negative: Tenderness Extremity Exam: Negative: Edema Skin Exam: Positive: Breakdown Assessment /Plan Problems (1) Community acquired bacterial pneumonia Status: Acute Problem Text: f/u cultures respiratory panel rocephin azithromycin crp wbc (2) Chronic respiratory failure with hypercapnia Status: Chronic Problem Text: abg appreciated con't to monitor (3) Acute respiratory failure with hypoxia Status: Acute Problem Text: likely 2/2 to PNA o2, treatment as above (4) COPD (chronic obstructive pulmonary disease) Status: Chronic Problem Text: no wheeze, treatment of PNA as above o2 neb prn (5) Acute on chronic renal failure Status: Acute Problem Text: likely 2/2 infection vs dehydration ivf urine studies, us renal if not improve will consult nephrology (6) Dementia Status: Chronic Problem Text: supportive care, PFS, may need placement (7) Hypertension Status: Chronic Problem Text: hold bp med restart once infection improve monitor BP (8) Hyperlipidemia Status: Chronic Problem Text: outpatient f/u, not on meds (9) Fall Status: Chronic Problem Text: pt once infection improve, tele may need placement Plan/VTE VTE Prophylaxis Ordered?: Yes (heparin sq) Disposition pending placement, clinical improvement, DNR/DNI VS, I&O, 24H, Fishbone Vital Signs/I&O Vital Signs Date Time Temp Pulse Resp B/P Pulse Ox O2 Delivery O2 Flow Rate FiO2 04/26/16 08:00 96.5 77 18 121/60 92 Nasal Cannula 4.0 I&O- Last 24 Hours up to 6 AM 04/26/16 06:00 Intake Total 450 ml Output Total 0 ml Balance 450 ml Laboratory Data 24H LABS Laboratory Tests 2 04/25/16 18:19: Bedside Glucose ([facility] [place] [facility]) 178H 04/25/16 18:39: B-Type Natriuretic Peptide 131H, White Blood Count 22.6H, Red Blood Count 5.79H , Hemoglobin 14.1, Hematocrit 46.2, Mean Corpuscular Volume 79.7L, Mean Corpuscular Hemoglobin 24.4L, Mean Corpuscular Hemoglobin Concent 30.5L, Red Cell Distribution Width 17.8H, Platelet Count 345, Neutrophils (%) (Auto) 92.2H , Lymphocytes (%) (Auto) 1.4L, Monocytes (%) (Auto) 5.4H, Eosinophils (%) (Auto ) 0.2, Basophils (%) (Auto) 0.1, Neutrophils # (Auto) 20.9H, Lymphocytes # (Auto ) 0.3L, Monocytes # (Auto) 1.2H, Eosinophils # (Auto) 0.1, Basophils # (Auto) 0.0, Large Unclassified Cells # 0.1, Large Unclassified Cells % 0.6 04/25/16 19:29: Anion Gap 8, Blood Urea Nitrogen 19H, Creatinine 1.37H, Sodium Level 139, Potassium Level 3.7, Chloride Level 97L, Carbon Dioxide Level 34H, Calcium Level 11.5H, Total Creatine Kinase 176, Creatine Kinase MB 4.0H, Creatine Kinase MB Relative Index 2.27, Glomerular Filtration Rate 39.1, Troponin I < 0.02 04/25/16 19:46: Arterial Blood pH 7.404, Arterial Blood Partial Pressure CO2 58.1H, Arterial Blood Partial Pressure O2 66.3L, Arterial Blood Total CO2 37.3H, Arterial Blood HCO3 35.5H, Arterial Blood Base Excess 8.7H, Arterial Blood Oxygen Saturation 93.1L, Blood Gas Bicarbonate Standard 32.4H, Oxygen Delivery Device NASAL RUTH 04/25/16 21:06: Urine Amorphous Sediment SMALLH, Urine Appearance CLOUDY, Urine Color YELLOW, Urine pH 8.0, Urine Specific Reading 1.008, Urine Protein NEGATIVE, Urine Glucose (UA) NEGATIVE, Urine Ketones NEGATIVE, Urine Urobilinogen 0.2, Urine Bilirubin NEGATIVE, Urine Leukocyte Esterase NEGATIVE, Urine Bacteria (Auto) NEGATIVE, Urine Blood NEGATIVE, Urine Calcium Carbonate Cryst(Auto) , Urine Calcium Oxalate Cryst (Auto) , Urine Calcium Phosphate Shelly (Auto) , Urine Cellular Casts , Urine Cystine Crystals , Urine Granular Casts (Auto) , Urine Hyaline Casts (Auto) 0, Urine Leucine Crystals , Urine Mucus (Auto) SMALL, Urine Nitrite NEGATIVE, Urine Oval Fat Bodies (Auto) , Urine RBC (Auto) 1, Urine Renal Epithelial Cells , Urine Sperm (Auto) , Urine Squamous Epithelial Cells 0, Urine Transitional Epithelial Cells , Urine Trichomonas (Auto) , Urine Triple Phosphate Cryst (Auto) , Urine Tyrosine Crystals , Urine Uric Acid Crystals (Auto) , Urine WBC (Auto) 2, Urine Waxy Casts (Auto) , Urine Yeast- Like Cells (Auto) 04/25/16 23:05: Lactic Acid (Sepsis) 1.2 04/26/16 05:32: Albumin 2.7L, Blood Urea Nitrogen 25H, Creatinine 2.03H, Sodium Level 138, Potassium Level 3.9, Chloride Level 97L, Carbon Dioxide Level 34H, Anion Gap 7L , Calcium Level 10.5H, Free Thyroxine Index 2.9, Glomerular Filtration Rate 24.8L, Phosphorus Level 3.2, Thyroid Stimulating Hormone (TSH) 0.849, Thyroxine (T4) 8.1, Triiodothyronine (T3) Uptake 36 04/26/16 10:04: Creatine Kinase MB 1.5, Creatine Kinase MB Relative Index 1.70, Total Creatine Kinase 88, Troponin I < 0.02 CBC/BMP Laboratory Tests 04/25/16 18:39 Red Blood Count 5.79 H, Mean Corpuscular Volume 79.7 L, Mean Corpuscular Hemoglobin 24.4 L, Mean Corpuscular Hemoglobin Concent 30.5 L, Red Cell Distribution Width 17.8 H, Neutrophils (%) (Auto) 92.2 H, Lymphocytes (%) (Auto ) 1.4 L, Monocytes (%) (Auto) 5.4 H, Eosinophils (%) (Auto) 0.2, Basophils (%) ( Auto) 0.1, Neutrophils # (Auto) 20.9 H, Lymphocytes # (Auto) 0.3 L, Monocytes # (Auto) 1.2 H, Eosinophils # (Auto) 0.1, Basophils # (Auto) 0.0 04/25/16 19:29 Calcium Level 11.5 H, Total Creatine Kinase 176 04/26/16 05:32 Red Blood Count 4.78, Mean Corpuscular Volume 78.9 L, Mean Corpuscular Hemoglobin 24.5 L, Mean Corpuscular Hemoglobin Concent 31.0 L, Red Cell Distribution Width 18.5 H, Anion Gap 7 L Microbiology Microbiology 04/25/16 Blood Culture, Received Pending 04/25/16 Blood Culture, Received Pending 04/26/16 MRSA Screen, Resulted Pending 04/26/16 Respiratory Virus Panel (PCR) (CRISTA) - Final, Resulted 04/25/16 Influenza Virus Type A Antigen - Final, Complete 04/25/16 Influenza Virus Type B Antigen - Final, Complete 04/25/16 Urine Culture, Received Pending CHANDU FRANZ MD Apr 26, 2016 16:11
--- NOTE | 2016-04-26 17:42 | REP ---
PICC LINE INSERTION WITH SITE-RITE: The procedure was performed under the direct supervision of Dr. Shanks. The risks and benefits of the procedure were explained to the patient and informed consent was obtained. The right basilic vein was localized using ultrasound guidance. The patient was brought into the room and placed on the table at which point she became very combative. It was felt at this point for the safety of the patient that the procedure should be discontinued. The patient was then placed back on the stretcher and sent back up to PCU. Reviewed by RICK Calero 04/27/2016 08:31 AEdited and Signed by Dennis Shanks MD 04/27/2016 02:44 P
[2016-04-26 20:01] VITALS: BP 156/63
[2016-04-27 00:10] VITALS: BP 143/65
[2016-04-27] MEDS: AZITHROMYCIN INJ 500 MG, VIAL MATE ADAPTER 1 EACH in D5W 250 ML IV SCH (01:26)
[2016-04-27] MEDS: IPRATROPIUM 0.5MG/ALBUTEROL 2.5MG INH SOL UD 3ML (DUONEB)(J7620) NEB SCH ×4 (02:20→20:22)
[2016-04-27] MEDS: cefTRIAXone SOD 2 GM in D5W MINI-BAG PLUS 50 ML IV SCH (03:15)
[2016-04-27 03:34] VITALS: BP 154/70
[2016-04-27 04:01] LABS: OSMOLALITY URINE 385 MOSM/KG (500-800)
[2016-04-27 05:28] LABS: MEAN CORPUSCULAR HEMOGLOBIN 24.1 pg (27.0-33.0); MEAN CORPUSCULAR HGB CONC 30.9 g/dl (32.0-36.5); MEAN CORPUSCULAR VOLUME 78.1 fl (80.0-96.0); RED CELL DISTRIBUTION WIDTH 18.5 % (11.5-14.5); WHITE BLOOD COUNT 13.4 K/mm3 (4.0-10.0)
[2016-04-27 05:37] LABS: ALBUMIN 2.2 GM/DL (3.2-5.2); CALCIUM LEVEL 10.4 MG/DL (8.8-10.2); CREATININE FOR GFR 1.82 MG/DL (0.55-1.02); GLOMERULAR FILTRATION RATE 28.2 (>32); PHOSPHORUS LEVEL 2.9 MG/DL (2.5-4.9); POTASSIUM SERUM 3.3 MEQ/L (3.5-5.1)
[2016-04-27 08:00] VITALS: BP 135/62
[2016-04-27] MEDS: NS 1,000 ML IV SCH (08:52)
[2016-04-27] MEDS: PARoxetine 10MG TABLET PO SCH (08:53)
[2016-04-27] MEDS: HEPARIN SOD (PORCINE) 5000 UNITS/ML VIAL SQ SCH ×2 (08:53→21:46)
[2016-04-27] MEDS ORDERED: POTASSIUM CHLORIDE 10 MEQ SR TABLET PO ONE (09:00)
--- NOTE | 2016-04-27 10:03 | ECGEPIP ---
Stationary ECG Study [facility] - ED Test Date: 2016-04-25 Pat Name: LYUDMILA MCKINNEY Department: Room: [place] [address] Gender: F Psychologist Engineering: [id number]: [id number] Requested By: Osiel Diehl Order Number: [id number] Reading MD: Osiel Neville Measurements Intervals [place] Rate: 76 P: 84 PA: 202 QRS: 103 QRSD: 96 T: 70 QT: 369 QTc: 417 Interpretive Statements SINUS RHYTHM RIGHT AXIS DEVIATION NSTTW ABNORMALITIES SIMILAR TO 01/09/16 Electronically Signed On 04-27-2016 10:03:10 EST by Osiel Neville
[2016-04-27] MEDS: KCL 40MEQ in NS 1000ML 1,000 ML IV SCH (10:08)
[2016-04-27] MEDS ORDERED: ALPRAZolam 0.25 MG TAB PO ONE (10:30)
[2016-04-27 12:00] VITALS: BP 134/60
[2016-04-27 16:00] VITALS: BP 151/73
[2016-04-27] MEDS: SODIUM CHLORIDE 0.9% INJ 10 ML SYR IV SCH (17:10)
--- NOTE | 2016-04-27 17:35 | REP ---
Procedure: PICC line insertion with Gael-Reymundo The procedure was performed under the direct supervision of Dr. Shanks. The risks and benefits of the procedure were explained and informed consent was obtained by the health care proxy. The right basilic vein was localized using ultrasound guidance. The skin was prepped and draped in a sterile fashion. 2% lidocaine was used as a local anesthetic. Using ultrasound guidance the basilic vein was cannulated and a 0.018 guidewire was inserted and advanced to the SVC using fluoroscopic guidance. The needle was removed and a 5.5 Azerbaijani dilator and peel-away sheath was inserted over the guide wire. A 5.5 Azerbaijani dual lumen catheter was cut to length of 43 cm. The dilator was removed and the catheter was inserted over the guide wire with the tip ending in the SVC. The peel-away sheath was removed and the catheter was flushed with heparinized saline as per Hospital protocol. The catheter was affixed to the skin and a sterile dressing was applied. The the patient tolerated the procedure well and there were no immediate complications. 0.1 minutes of fluoro time was utilized for this procedure. Reviewed by RICK Calero 04/27/2016 04:16 PSigned by Dennis Shanks MD 04/27/2016 05:24 P
--- NOTE | 2016-04-27 18:39 | IPNPDOC ---
Subjective Date Seen The patient was seen on 04/27/16. Subjective Chief Complaint/HPI The patient is a 86-year-old female admitted with a reason for visit of Community Acquired Bacterial Pneumonia. Events since last encounter No acute events. poor historian, reported generalized weakness, cough, denied cp, pal, v/n/ abd pain General: Reports: Fatigue, Denies: Chills Constitutional: Reports: Weakness, Denies: Chills, Fever Eyes: Denies: Pain ENT: Denies: Head Aches Pulmonary: Reports: Cough, Denies: Dyspnea Cardiovascular: Denies: Chest Pain, Orthopnea, Palpitations Gastrointestinal: Denies: Abdominal Pain, Nausea, Vomiting Musculoskeletal: Denies: Back Pain, Neck Pain Objective Physical Examination General Exam: Positive: Alert, No Acute Distress Eye Exam: Positive: PERRLA ENT Exam: Positive: Atraumatic, Mucous membr. moist/pink Neck Exam: Positive: Supple Chest Exam: Positive: Rales, Rhonchi Heart Exam: Positive: Normal S1, Normal S2, Rate Normal Telemetry: Positive: Sinus Abdomen Exam: Positive: Normal bowel sounds, Soft, Negative: Tenderness Extremity Exam: Negative: Edema Skin Exam: Positive: Breakdown Assessment /Plan Problems (1) Community acquired bacterial pneumonia Status: Acute Problem Text: f/u cultures respiratory panel rocephin azithromycin crp wbc (2) Chronic respiratory failure with hypercapnia Status: Chronic Problem Text: abg appreciated con't to monitor (3) Acute respiratory failure with hypoxia Status: Acute Problem Text: likely 2/2 to PNA o2, treatment as above (4) COPD (chronic obstructive pulmonary disease) Status: Chronic Problem Text: no wheeze, treatment of PNA as above o2 neb prn (5) Acute on chronic renal failure Status: Acute Problem Text: likely 2/2 infection vs dehydration ivf urine studies, us renal if not improve will consult nephrology (6) Dementia Status: Chronic Problem Text: supportive care, PFS, may need placement (7) Hypertension Status: Chronic Problem Text: hold bp med restart once infection improve monitor BP (8) Hyperlipidemia Status: Chronic Problem Text: outpatient f/u, not on meds (9) Fall Status: Chronic Problem Text: pt once infection improve, tele may need placement (10) Thyroid nodule Status: Chronic Problem Text: thyroid function appreciated US done, need outpatient followup and possible biopsy Plan/VTE VTE Prophylaxis Ordered?: Yes (heparin sq) Disposition clinical improvement and placement VS, I&O, 24H, [facility] Vital Signs/I&O Vital Signs Date Time Temp Pulse Resp B/P Pulse Ox O2 Delivery O2 Flow Rate FiO2 04/27/16 16:00 96.4 81 20 151/73 90 Nasal Cannula 5.0 I&O- Last 24 Hours up to 6 AM 04/27/16 06:00 Intake Total 2315 ml Output Total 200 ml Balance 2115 ml Laboratory Data 24H LABS Laboratory Tests 2 04/27/16 03:26: Urine Amorphous Sediment SMALLH, Urine Appearance HAZY, Urine Color YELLOW, Urine pH 5.0, Urine Specific [place] 1.012, Urine Protein NEGATIVE, Urine Glucose (UA) NEGATIVE, Urine Ketones NEGATIVE, Urine Urobilinogen 0.2, Urine Bilirubin NEGATIVE, Urine Leukocyte Esterase 1+H, Urine Bacteria (Auto) 1+H, Urine Blood NEGATIVE, Urine Calcium Carbonate Cryst(Auto) , Urine Calcium Oxalate Cryst (Auto) , Urine Calcium Phosphate Shelly (Auto) , Urine Cellular Casts , Urine Cystine Crystals , Urine Granular Casts (Auto) , Urine Hyaline Casts (Auto) 0, Urine Leucine Crystals , Urine Mucus (Auto) SMALL, Urine Nitrite NEGATIVE, Urine Oval Fat Bodies (Auto) , Urine RBC (Auto) 5H, Urine Random Chloride 14, Urine Random Creatinine 119.0, Urine Random Osmolality 385L , Urine Random Potassium 32.2, Urine Random Sodium 20, Urine Random Total Protein 56.3H, Urine Renal Epithelial Cells , Urine Sperm (Auto) , Urine Squamous Epithelial Cells 1, Urine Transitional Epithelial Cells , Urine Trichomonas (Auto) , Urine Triple Phosphate Cryst (Auto) , Urine Tyrosine Crystals , Urine Uric Acid Crystals (Auto) , Urine WBC (Auto) 10H, Urine Waxy Casts (Auto) , Urine Yeast-Like Cells (Auto) 04/27/16 05:01: Albumin 2.2L, Blood Urea Nitrogen 32H, Creatinine 1.82H, Sodium Level 136, Potassium Level 3.3L, Chloride Level 99, Carbon Dioxide Level 32, Anion Gap 5L, Calcium Level 10.4H, Glomerular Filtration Rate 28.2L, Phosphorus Level 2.9 CBC/BMP Laboratory Tests 04/27/16 05:01 Anion Gap 5 L, Red Blood Count 4.30, Mean Corpuscular Volume 78.1 L, Mean Corpuscular Hemoglobin 24.1 L, Mean Corpuscular Hemoglobin Concent 30.9 L, Red Cell Distribution Width 18.5 H Microbiology Microbiology 04/25/16 Blood Culture - Preliminary, Resulted No growth after 24 hours . All specim... 04/25/16 Blood Culture - Preliminary, Resulted 04/26/16 Gram Stain - Final, Resulted 04/26/16 Sputum Culture, Resulted Pending 04/26/16 MRSA Screen - Final, Complete 04/26/16 Respiratory Virus Panel (PCR) (CRISTA) - Final, Complete 04/25/16 Influenza Virus Type A Antigen - Final, Complete 04/25/16 Influenza Virus Type B Antigen - Final, Complete 04/25/16 Urine Culture - Final, Complete CHANDU FRANZ MD Apr 27, 2016 18:39
[2016-04-27 20:00] VITALS: BP 126/68
[2016-04-28] VITALS: BP 143/65
[2016-04-28] MEDS: IPRATROPIUM 0.5MG/ALBUTEROL 2.5MG INH SOL UD 3ML (DUONEB)(J7620) NEB SCH ×4 (01:55→20:00)
--- NOTE | 2016-04-28 01:56 | EDDOCDS ---
Nurse's Notes [facility] Name: Shell Ellis Age: 86 yrs Sex: Female : 1930 Arrival Date: 04/25/2016 Time: 18:06 Bed 10 Private MD: Diagnosis: Bronchopneumonia, unspecified organism-CJ, LLL;Pleural effusion in conditions classified elsewhere-left;Hypoxemia;Chronic obstructive pulmonary disease with acute lower respiratory infection;Unspecified dementia Presentation: 04/25 18:12 Presenting complaint: EMS states: Found by family member/caregiver on floor next to her ja5 bed. Slurred speech and facial droop reported by family. Blood sugar 184 in field. EMS found patient with no deficits but with some AMS which is patients baseline according to family. Last known well time is unknown. Adult Sepsis Screening: Adult Sepsis Screening:. Suicide/Homicide risk assessment- Unable to assess, the patient has an altered level of consciousness. Status: Unknown if director social service or dependent. Transition of care: patient was not received from another setting of care. 18:12 Acuity: CHARITY Level 2 [facility] 18:12 Method Of Arrival: Ambulance ja5 Triage Assessment: 18:12 General: Appears in no apparent distress. Pain: Location: everywhere. Neurological: [facility] Level of Consciousness is awake, confused, Oriented to person, Outpatient Interviewing Clerk are equal bilaterally Moves all extremities. Speech is normal, Facial symmetry appears normal. Historical: - Allergies: no known allergies; - Home Meds: 1. paroxetine HCl 10 mg Oral tab 1 tab once daily 2. tramadol 50 mg Oral tab 1 tab daily 3. amlodipine 10 mg Oral tab 1 tab once daily 4. Oxygen 3L nightly - PMHx: COPD; Hypertension; Depression; Dementia; - PSHx: Hysterectomy; - The history from nurses notes was reviewed: and elements of the historical information I have obtained differs from that reported to nursing. - Social history: No barriers to communication noted, The patient speaks fluent [place], Smoking status: Patient uses tobacco products, heavy tobacco smoker. - : The pt / caregiver states he / she is not on anticoagulants. Home medication list is obtained from [employer] import data. - Hospitalizations: : No recent hospitalization is reported. - Exposure Risk Screening:: Unable to Assess. - Immunization history:: All immunizations up-to-date. - Family history: Not pertinent. - Social history:: the patient smokes cigarettes the patient does not drink alcohol. Screenin:31 Screening information is obtained from family members, the caregiver. Fall risk: At mlc risk due to age, prior history of falls. Assistance ADL's: Requires assistance with meal preparation, this assistance is provided by family members, Home Health Aides, bathing, assistance is provided by Home Health Aides, dressing, assistance is provided by Home Health Aides, toileting, assistance is provided by Home Health Aides, housework, assistance is provided by Home Health Aides. Abuse/DV Screen: The patient / caregiver reports he/she is: not in a situation that causes fear, pain or injury. Nutritional screening: No deficits noted. Advance Directives: Currently, there is no health care proxy. There is no active DNR order. There is no living will. There is no Power of Clean Room Assembler. home support is adequate. Assessment: 18:26 General: Appears in no apparent distress, Behavior is cooperative, flat. Neurological: ja5 Level of Consciousness is awake, confused, Oriented to person. Cardiovascular: Capillary refill < 3 seconds Heart tones S1 S2 present Rhythm is sinus rhythm No ectopy. Respiratory: Airway is patent Respiratory effort is even, unlabored, Respiratory pattern is regular, symmetrical, Breath sounds are clear bilaterally. Derm: Skin is pink, warm & dry. 18:54 General: Patient is laying in stretcher in low position, respirations are even and ja5 unlabored. Patient has no slurred speech, slot machine repairer are equal bilat, no facial drooping present. Awaiting family to arrive to finish triage.. 19:13 General: Appears in no apparent distress, comfortable, Behavior is cooperative, drowsy, mlc quiet. Pain: Denies pain. Neurological: Level of Consciousness is lethargic, Oriented to person, Weakness Facial symmetry appears normal. Cardiovascular: Heart tones S1 S2 present Rhythm is sinus rhythm. Respiratory: Airway is patent Respiratory effort is even, unlabored, Respiratory pattern is regular, Breath sounds are clear bilaterally. Derm: Skin has skin tears on skin tear and scabbing noted on right FA. dime-sized scab to right knee. Skin is normal, finger nails yellowed. 19:34 Reassessment: Brother very concerned about patient returning home, states that she has mlc deteriorated that past month. brother concerned that patient will fall again at home since she lives by herself. . 20:30 Reassessment: Patient appears in no apparent distress at this time. Patient denies pain mlc at this time. no changes since prior. resp easy/unlabored. . 21:38 General: Appears in no apparent distress, comfortable, to be sleeping. Respiratory: mlc Airway is patent Respiratory effort is even, unlabored, Respiratory pattern is regular. 21:47 Reassessment: pt taken to CT. mlc 22:19 General: Appears in no apparent distress, comfortable, to be sleeping. Respiratory: mlc Airway is patent Respiratory effort is even, unlabored, Respiratory pattern is regular. 23:10 General: Appears in no apparent distress, comfortable, to be sleeping. awakens easily. mlc 04/26 00:49 General: Appears in no apparent distress, comfortable. Neurological: Level of mlc Consciousness is confused, Oriented to person. Respiratory: Airway is patent Respiratory effort is even, unlabored, Respiratory pattern is regular. Vital Signs: 04/25 18:12 BP 143 / 65; Pulse 80; Resp 20; Temp 97.4(O); ja5 19:04 Pulse 72 MON; Pulse Ox 90% ; mlc 19:05 BP 126 / 60 (auto/); mlc 19:06 Pulse Ox 91% on NC; ja5 19:19 Pulse 76 MON; Pulse Ox 95% ; mlc 19:20 BP 144 / 58 (auto/); mlc 19:33 Pulse 76 MON; Pulse Ox 94% ; mlc 19:34 Pulse 82 MON; Pulse Ox 93% on 3 lpm NC; mlc 19:35 BP 120 / 58 (auto/); mlc 20:04 Pulse 76 MON; Pulse Ox 88% ; mlc 20:05 BP 110 / 57 (auto/); mlc 20:20 BP 120 / 63 (auto/); mlc 20:35 BP 125 / 58 (auto/); mlc 20:50 BP 110 / 58 (auto/); mlc 20:50 Pulse 74 MON; Pulse Ox 90% ; mlc 21:05 BP 148 / 67 (auto/); mlc 21:19 Pulse 72 MON; Pulse Ox 94% ; mlc 21:20 BP 116 / 55 (auto/); mlc 21:35 BP 103 / 53 (auto/); mlc 21:35 Pulse 70 MON; Pulse Ox 95% ; mlc 21:56 Pulse 72 MON; Pulse Ox 93% ; mlc 21:57 BP 101 / 56 (auto/); mlc 22:05 BP 98 / 56 (auto/); mlc 22:18 Pulse 76 MON; Pulse Ox 90% on 4 lpm NC; mlc 22:20 BP 101 / 55 (auto/); mlc 22:20 Pulse 78 MON; Pulse Ox 91% ; mlc 22:35 BP 94 / 50 (auto/); mlc 22:35 Pulse 76 MON; Pulse Ox 92% ; mlc 22:41 BP 115 / 55 (auto/); mlc 22:42 Pulse 82 MON; Pulse Ox 92% ; mlc 22:45 Temp 99.0(TE); mlc 22:50 BP 106 / 51 (auto/); mlc 22:51 Pulse 72 MON; Pulse Ox 94% ; mlc 23:05 BP 112 / 55 (auto/); mlc 23:06 Pulse 72 MON; Pulse Ox 93% ; mlc 23:10 Weight 51 kg (M); mlc 23:20 BP 99 / 55 (auto/); mlc 23:21 Pulse 72 MON; Pulse Ox 94% ; mlc 23:35 BP 102 / 57 (auto/); mlc 23:36 Pulse 74 MON; Pulse Ox 91% ; mlc 23:50 BP 106 / 53 (auto/); mlc 23:51 Pulse 72 MON; Pulse Ox 94% ; mlc 04/26 00:05 BP 99 / 50 (auto/); mlc 00:06 Pulse 74 MON; Pulse Ox 92% ; mlc 00:20 BP 102 / 52 (auto/); mlc 00:21 Pulse 76 MON; Pulse Ox 92% ; mlc 00:35 BP 101 / 50 (auto/); mlc 00:36 Pulse 78 MON; Pulse Ox 93% ; mlc 00:49 BP 112 / 54; Pulse 82; Resp 18; Temp 99.5; Pulse Ox 91% on 4 lpm NC; Pain 0/10; mlc Vitals: 04/25 18:12 Log In Time: April 25, 2016 at 06:20. ja5 ED Course: 18:07 Patient visited by Felicia Gill, Air Twist Operator. deg 18:07 Lissette Rodriguez,RN is Primary Nurse. deg 18:07 Shira Sheets, LACHO is Primary Nurse. deg 18:07 Patient moved to Waiting deg 18:07 Patient moved to 10 deg 18:20 Triage Initiated [facility] 18:34 Osiel Neville MD is Attending Physician. pc 18:54 Patient visited by Lissette Rodriguez RN. ja5 19:02 Ivana Howell RN is Primary Nurse. mlc 19:04 Inserted saline lock: 20 gauge in right antecubital area by Kaitlynn Sheets RN. mlc 19:07 Primary Nurse role handed off by Lissette Rodriguez RN ja5 19:07 Primary Nurse role handed off by Shira Sheets RN ja5 19:13 Patient visited by Osiel Neville MD. pc 19:16 Patient visited by Ivana Howell RN. mlc 19:17 -Blood Culture Sent. mlc 19:17 B-Type Natiuretic Peptide Sent. mlc 19:17 CBC with Diff Sent. mlc 19:22 Patient visited by Yani Garcia PCA. gucci 19:22 EKG done. (by ED staff). Reviewed by Osiel Neville MD. gucci 19:26 Patient moved to Radiology usama 19:30 BLOOD CULTURES Sent. mlc 19:30 -Influenza A&B Rapid Antigen - Nose Sent. mlc 19:31 Basic Metabolic Profile Sent. mlc 19:31 Cardiac Injury Profile Sent. mlc 19:31 Troponin Sent. mlc 19:36 Patient visited by Ivana Howell RN. mlc 19:48 Patient moved to 10 mlc 19:54 -Arterial Blood Gas Sent. nk1 20:54 Patient visited by Osiel Neville MD. pc 21:00 Straight cath inserted 8fr returned clear yellow urine. Patient tolerated well. feb 21:24 [facility] Payment Agreement was scanned into [employer] and attached to record. gjb 21:38 Patient visited by Ivana Howell RN. mlc 22:20 Patient visited by Ivana Howell RN. mlc 22:31 CT Chest Without Contrast Returned. EDMS 22:45 Nolvia Wahl is Hospitalizing Provider. pc 23:08 Lactic Acid (Buenrostro tube on ice) Sent. mlc 23:11 Patient visited by Ivana Howell RN. mlc 04/26 00:49 The patient / caregiver is instructed regarding the plan of care and ED course. mlc 00:49 No procedures done that require assistance. mlc Administered Medications: 04/25 23:08 Drug: Piperacillin-Tazobactam 2.25 grams [piperacillin-tazobactam 3.375 gram mlc intravenous solution] Route: IVPB; Infused Over: 30 mins; Site: right antecubital; 23:38 Follow up: IV Status: Completed infusion mlc RT: 19:54 ABG's drawn from left radial artery pressure held for 5 minutes no bleeding noted nk1 pressure bandage applied specimen sent pt. tolerated well. O2 via nasal cannula \T\ 3L/min O2 via . Order Results: Lab Order: Fingerstick Blood Sugar; [facility] 04/25/16 18:19 Test: BEDSIDE GLUCOSE; Value: 178; Range: 83-110; Abnormal: Above high normal; Units: MG/DL; Status: F Lab Order: -Arterial Blood Gas; [facility]' 04/25/16 19:46 Test: ABG pH (ARTERIAL); Value: 7.404; Range: 7.350-7.450; Units: UNITS; Status: F Test: ABG PARTIAL PRESSURE CO2; Value: 58.1; Range: 35.0-45.0; Abnormal: Above high normal; Units: mmHg; Status: F Test: ABG PARTIAL PRESSURE O2; Value: 66.3; Range: 75.0-100.0; Abnormal: Below low normal; Units: mmHg; Status: F Test: ABG TOTAL CO2; Value: 37.3; Range: 23.0-31.0; Abnormal: Above high normal; Units: MEQ/L; Status: F Test: ABG HCO3; Value: 35.5; Range: 22.0-26.0; Abnormal: Above high normal; Units: MEQ/L; Status: F Test: ABG BASE EXCESS; Value: 8.7; Range: -2.0-2.0; Abnormal: Above high normal; Status: F Test: ABG STANDARD HCO3; Value: 32.4; Range: 22.0-26.0; Abnormal: Above high normal; Units: MEQ/L; Status: F Test: ABG O2 SATURATION; Value: 93.1; Range: 95.0-99.0; Abnormal: Below low normal; Units: %; Status: F Test: ABG DEVICE; Value: NASAL RUTH; Status: F Lab Order: B-Type Natiuretic Peptide; SPEC' 04/25/16 18:39 Test: BRAIN NATRIURETIC PEPTIDE; Value: 131; Range: <100; Abnormal: Above high normal; Units: PG/ML; Status: F Lab Order: Basic Metabolic Profile; SPEC'M 04/25/16 19:29 Test: GLUCOSE, FASTING; Value: 177; Range: 83-110; Abnormal: Above high normal; Units: MG/DL; Status: F Test: BLOOD UREA NITROGEN; Value: 19; Range: 7-18; Abnormal: Above high normal; Units: MG/DL; Status: F Test: CREATININE FOR GFR; Value: 1.37; Range: 0.55-1.02; Abnormal: Above high normal; Units: MG/DL; Status: F Test: GLOMERULAR FILTRATION RATE; Value: 39.1; Range: >32; Status: F Test: SODIUM LEVEL; Value: 139; Range: 136-145; Units: MEQ/L; Status: F Test: POTASSIUM SERUM; Value: 3.7; Range: 3.5-5.1; Units: MEQ/L; Status: F Test: CHLORIDE LEVEL; Value: 97; Range: 98-107; Abnormal: Below low normal; Units: MEQ/L; Status: F Test: CARBON DIOXIDE LEVEL; Value: 34; Range: 21-32; Abnormal: Above high normal; Units: MEQ/L; Status: F Test: ANION GAP; Value: 8; Range: 8-16; Units: MEQ/L; Status: F Test: CALCIUM LEVEL; Value: 11.5; Range: 8.8-10.2; Abnormal: Above high normal; Units: MG/DL; Status: F Test Note: ; Units are mL/min/1.73 m2 Chronic Kidney Disease Staging per NKF: Stage I & II GFR >=60 Normal to Mildly Decreased Stage III GFR 30-59 Moderately Decreased Stage IV GFR 15-29 Severely Decreased Stage V GFR <15 Very Little GFR Left ESRD GFR <15 on LAND SURVEYOR Lab Order: CBC with Diff; SPEC'M 04/25/16 18:39 Test: WHITE BLOOD COUNT; Value: 22.6; Range: 4.0-10.0; Abnormal: Above high normal; Units: K/mm3; Status: F Test: RED BLOOD COUNT; Value: 5.79; Range: 4.00-5.40; Abnormal: Above high normal; Units: M/mm3; Status: F Test: HEMOGLOBIN; Value: 14.1; Range: 12.0-16.0; Units: g/dl; Status: F Test: HEMATOCRIT; Value: 46.2; Range: 36.0-47.0; Units: %; Status: F Test: MEAN CORPUSCULAR VOLUME; Value: 79.7; Range: 80.0-96.0; Abnormal: Below low normal; Units: fl; Status: F Test: MEAN CORPUSCULAR HEMOGLOBIN; Value: 24.4; Range: 27.0-33.0; Abnormal: Below low normal; Units: pg; Status: F Test: MEAN CORPUSCULAR HGB CONC; Value: 30.5; Range: 32.0-36.5; Abnormal: Below low normal; Units: g/dl; Status: F Test: RED CELL DISTRIBUTION WIDTH; Value: 17.8; Range: 11.5-14.5; Abnormal: Above high normal; Units: %; Status: F Test: PLATELET COUNT, AUTOMATED; Value: 345; Range: 150-450; Units: k/mm3; Status: F Test: NEUTROPHILS %; Value: 92.2; Range: 36.0-66.0; Abnormal: Above high normal; Units: %; Status: F Test: LYMPH %; Value: 1.4; Range: 24.0-44.0; Abnormal: Below low normal; Units: %; Status: F Test: MONO %; Value: 5.4; Range: 0.0-5.0; Abnormal: Above high normal; Units: %; Status: F Test: EOS %; Value: 0.2; Range: 0.0-3.0; Units: %; Status: F Test: BASO %; Value: 0.1; Range: 0.0-1.0; Units: %; Status: F Test: LARGE UNSTAINED CELL %; Value: 0.6; Range: 0.0-4.0; Units: %; Status: F Test: NEUTROPHILS #; Value: 20.9; Range: 1.8-7.7; Abnormal: Above high normal; Units: K/mm3; Status: F Test: LYMPH #; Value: 0.3; Range: 1.5-4.5; Abnormal: Below low normal; Units: K/mm3; Status: F Test: MONO #; Value: 1.2; Range: 0.0-0.8; Abnormal: Above high normal; Units: K/mm3; Status: F Test: EOS #; Value: 0.1; Range: 0.0-0.50; Units: K/mm3; Status: F Test: BASO #; Value: 0.0; Range: 0.0-0.2; Units: K/mm3; Status: F Test: LARGE UNSTAINED CELL #; Value: 0.1; Range: 0.0-0.4; Units: K/mm3; Status: F Lab Order: Cardiac Injury Profile; SPEC'M 04/25/16 19:29 Test: CPK CREATINE PHOSPHOKINASE; Value: 176; Range: 26-192; Units: U/L; Status: F Test: CK-MB VALUE MASS; Value: 4.0; Range: 0.0-3.6; Abnormal: Above high normal; Units: NG/ML; Status: F Test: MB/CK RELATIVE INDEX; Value: 2.27; Range: < OR =4; Status: F Test Note: ; DIAGNOSIS CRITERIA MMB ng/ml Relative Index (RI) NON-AMI < or = 5 N/A BUENROSTRO ZONE > 5 < or = 4 AMI > 5 > 4 Lab Order: Troponin; SPEC'M 04/25/16 19:29 Test: TROPONIN I; Value: < 0.02; Range: < 0.10; Units: NG/ML; Status: F Test Note: ; Troponin I Reference Interval for [employer] LOCI: 99th Percentile= 0.00-0.045 ng/ml Risk Stratification: <= 0.10 ng/ml Decreased Risk for Adverse Clinical Events. 0.10-1.50 ng/ml Increased Risk for Adverse Clinical Events. Evaluation of additional criterion and/or repeat testing in 2-6 hours is suggested to rule out myocardial damage. >= 1.50 ng/ml Indicative of Myocardial Injury. Lab Order: -Influenza A&B Rapid Antigen - Nose; SPEC'M 04/25/16 19:28 Test: INFLUENZA A RAPID SCR by ICA; Value: INFLUENZA A RESULTS NEGATIVE; Status: F Test: INFLUENZA A RAPID SCR by ICA; Value: Comments:; Status: F Test: INFLUENZA B RAPID SCR by ICA; Value: INFLUENZA B RESULTS NEGATIVE; Status: F Test Note: ; The Influenza test is a direct rapid immunoassay for the qualitative detection of Influenza viral antigen. Cell culture (Viral Culture) testing should be considered to confirm NEGATIVE results and to assist in detecting other viruses that can provide similar clinical symptoms. Please contact the lab within 24 hours ([phone]) if confirmatory testing is desired. Lab Order: Urinalysis; SPEC'M 04/25/16 21:06 Test: APPEARANCE, URINE; Value: CLOUDY; Range: CLEAR; Status: F Test: COLOR, URINE; Value: YELLOW; Range: YELLOW; Status: F Test: PH,URINE; Value: 8.0; Range: 5.0-9.0; Units: UNITS; Status: F Test: SPECIFIC GRAVITY URINE AUTO; Value: 1.008; Range: 1.002-1.035; Status: F Test: PROTEIN, URINE AUTO; Value: NEGATIVE; Range: NEGATIVE; Units: mg/dL; Status: F Test: GLUCOSE, URINE (UA) AUTO; Value: NEGATIVE; Range: NEGATIVE; Units: mg/dL; Status: F Test: KETONE, URINE AUTO; Value: NEGATIVE; Range: NEGATIVE; Units: mg/dL; Status: F Test: UROBILINOGEN, URINE AUTO; Value: 0.2; Range: 0.0-2.0; Units: mg/dL; Status: F Test: BILIRUBIN, URINE AUTO; Value: NEGATIVE; Range: NEGATIVE; Status: F Test: NITRITE, URINE AUTO; Value: NEGATIVE; Range: NEGATIVE; Status: F Test: LEUKOCYTE ESTERASE, URINE AUTO; Value: NEGATIVE; Range: NEGATIVE; Status: F Test: BLOOD, URINE BLOOD; Value: NEGATIVE; Range: NEGATIVE; Status: F Test: WBC, URINE AUTO; Value: 2; Range: 0-3; Units: /HPF; Status: F Test: RBC, URINE AUTO; Value: 1; Range: 0-3; Units: /HPF; Status: F Test: BACTERIA, URINE AUTO; Value: NEGATIVE; Range: NEGATIVE; Status: F Test: SQUAMOUS EPITHELIAL CELL UR AU; Value: 0; Range: 0-6; Units: /HPF; Status: F Test: MUCUS, URINE; Value: SMALL; Range: NEGATIVE; Status: F Test: HYALINE CAST, URINE AUTO; Value: 0; Range: 0-1; Units: /LPF; Status: F Test: AMORPHOUS SEDIMENT; Value: SMALL; Range: NEGATIVE; Abnormal: Above high normal; Status: F Lab Order: Lactic Acid (Buenrostro tube on ice); SPEC'M 04/25/16 23:05 Test: LACTIC ACID SEPSIS PROTOCOL; Value: 1.2; Range: 0.4-2.0; Units: MMOL/L; Status: F Radiology Order: CT Chest Without Contrast Test: CT Chest Without Contrast REASON FOR EXAMINATION: elevated WBCs, hypoxia; ; CT of the chest without contrast; Clinical statement: hypoxia, elevated white cell count.; Technique: Multiple axial CT images were obtained with 5 mm cuts through the chest without administra; tion of contrast.; Comparison: 07/30/2013.; Findings: There is no thoracic lymphadenopathy. The 5 mm nodule in the left lobe of the thyroid gland; is stable. Moderate bilateral emphysematous changes are noted, and have worsened since the prior john paul; dy. There is a new small left lower lobe pleural effusion. There is infiltrate in the superior segmen; t of the left lower lobe. There is a left upper lobe infiltrate. There is also a left lingular infilt; rate. A 7 mm nodule in the lateral superior segment of the left lower lobe is grossly stable. Limited; imaging of the upper abdomen does not demonstrate any acute abnormalities. There are no suspicious o; sseous lesions. Mild spondylotic changes are seen in the lower thoracic and upper lumbar spine.; Impression:; 1. New infiltrates demonstrated within the left upper and left lower lobes as described. Small left-s; ided pleural effusion is also new.; 2. 7 mm nodule in the superior segment of the left lower lobe was seen on the prior study and is nino; sly unchanged.; 3. Worsening moderate emphysematous changes bilaterally.; 4. Stable subcentimeter low attenuation nodule in the left lobe of the thyroid gland.; ; Outcome: 22:46 Decision to Hospitalize by Provider. 04/26 00:44 Discharge Assessment: Patient awake, confused, patient administered narcotics - no. The mlc following High Risk Discharge criteria are identified: None. Admitted to PCU accompanied by nurse, accompanied by tech, with oxygen, on monitor, with chart. Condition: stable. CT Study completed. Admission hand-off: Report Faxed Fax receipt verified by LACHO Llanos. Property :Personal belongings accompany Pt. 00:56 Patient left the ED. ko2 Signatures: Dispatcher [employer] EDMS Osiel Neville MD MD pc Murray, Denise, Air Twist Operator Unit deg Cholo, Katya Guajardo, Nick Calles RN, Nora,RT RT nk1 Shira Sheets RN RN jc4 Jose, Yani, INTAKE MAN INTAKE MAN gucci Ivana Howell,RN RN Noemi Flaherty RN RN ko2 Annie Burrell JessicaRN RN ja5 Chart Complete MTDD
--- NOTE | 2016-04-28 01:56 | EDDOCDS ---
Physician Documentation [facility] Name: Shell Ellis Age: 86 yrs Sex: Female : 1930 Arrival Date: 04/25/2016 Time: 18:06 Bed 10 Private MD: Disposition: 04/25 22:43 Critical Care:. pc Disposition: 04/25/16 22:46 Hospitalization ordered by Nolvia Wahl for Inpatient Admission. Preliminary diagnosis are Bronchopneumonia, unspecified organism - CJ, LLL, Pleural effusion in conditions classified elsewhere - left, Hypoxemia, Chronic obstructive pulmonary disease with acute lower respiratory infection, Unspecified dementia. - Bed requested for PCU. - Status is Inpatient Admission. ko2 - Condition is Stable. - Problem is new. - Symptoms have improved. HPI: 19:36 This 86 yrs old Female presents to ER via Ambulance with complaints of pc Altered Mental Status. 19:36 The history is obtained from the patient's family/friend, EMS providers. Her son states pc that she can no longer live on her own. She has been falling more frequently, not eating very well, and has become more confused with underlying dementia. There is no report of any recent illness: no vomiting or diarrhea, no fevers or chills, no cough or URI symptoms. The family thought she might have had a facial droop earlier today but none on arrival. She is unable to provide any history. The patient has not recently seen a physician. Historical: - Allergies: no known allergies; - Home Meds: 1. paroxetine HCl 10 mg Oral tab 1 tab once daily 2. tramadol 50 mg Oral tab 1 tab daily 3. amlodipine 10 mg Oral tab 1 tab once daily 4. Oxygen 3L nightly - PMHx: COPD; Hypertension; Depression; Dementia; - PSHx: Hysterectomy; - The history from nurses notes was reviewed: and elements of the historical information I have obtained differs from that reported to nursing. - Social history: No barriers to communication noted, The patient speaks fluent [place], Smoking status: Patient uses tobacco products, heavy tobacco smoker. - : The pt / caregiver states he / she is not on anticoagulants. Home medication list is obtained from [employer] import data. - Hospitalizations: : No recent hospitalization is reported. - Exposure Risk Screening:: Unable to Assess. - Immunization history:: All immunizations up-to-date. - Family history: Not pertinent. - Social history:: the patient smokes cigarettes the patient does not drink alcohol. ROS: 19:42 All systems are negative except as listed. pc Exam: 19:42 General Appearance: no acute distress, alert. pc 19:42 EENT: normal eye inspection, ears, nose and throat normal, pharynx normal, mucous membranes moist 19:42 Neck: The exam reveals no acute abnormalities. ROM is normal and painless. No nuchal rigidity is noted.. 19:42 Respiratory: no respiratory distress, Breath sounds: wheezing, scattered. 19:42 CVS: regular pulse rate, regular rhythm, normal S1 and S2, no murmurs, strong peripheral pulses, normal capillary refill. 19:42 Abdomen: soft, non-tender, no organomegaly, normal bowel sounds. 19:42 Back: normal inspection. 19:42 Skin: skin color is normal, warm, dry. 19:42 Extremities: Multiple areas of healed abrasions and skin tears on all extremities . 19:42 Neuro: cranial nerves normal as tested, no motor deficits, no sensory deficits, unable to test orientation because of chronic dementia. 19:42 Psych: normal mood. Vital Signs: 18:12 BP 143 / 65; Pulse 80; Resp 20; Temp 97.4(O); ja5 19:04 Pulse 72 MON; Pulse Ox 90% ; mlc 19:05 BP 126 / 60 (auto/); mlc 19:06 Pulse Ox 91% on NC; ja5 19:19 Pulse 76 MON; Pulse Ox 95% ; mlc 19:20 BP 144 / 58 (auto/); mlc 19:33 Pulse 76 MON; Pulse Ox 94% ; mlc 19:34 Pulse 82 MON; Pulse Ox 93% on 3 lpm NC; mlc 19:35 BP 120 / 58 (auto/); mlc 20:04 Pulse 76 MON; Pulse Ox 88% ; mlc 20:05 BP 110 / 57 (auto/); mlc 20:20 BP 120 / 63 (auto/); mlc 20:35 BP 125 / 58 (auto/); mlc 20:50 BP 110 / 58 (auto/); mlc 20:50 Pulse 74 MON; Pulse Ox 90% ; mlc 21:05 BP 148 / 67 (auto/); mlc 21:19 Pulse 72 MON; Pulse Ox 94% ; mlc 21:20 BP 116 / 55 (auto/); mlc 21:35 BP 103 / 53 (auto/); mlc 21:35 Pulse 70 MON; Pulse Ox 95% ; mlc 21:56 Pulse 72 MON; Pulse Ox 93% ; mlc 21:57 BP 101 / 56 (auto/); mlc 22:05 BP 98 / 56 (auto/); mlc 22:18 Pulse 76 MON; Pulse Ox 90% on 4 lpm NC; mlc 22:20 BP 101 / 55 (auto/); mlc 22:20 Pulse 78 MON; Pulse Ox 91% ; mlc 22:35 BP 94 / 50 (auto/); mlc 22:35 Pulse 76 MON; Pulse Ox 92% ; mlc 22:41 BP 115 / 55 (auto/); mlc 22:42 Pulse 82 MON; Pulse Ox 92% ; mlc 22:45 Temp 99.0(TE); mlc 22:50 BP 106 / 51 (auto/); mlc 22:51 Pulse 72 MON; Pulse Ox 94% ; mlc 23:05 BP 112 / 55 (auto/); mlc 23:06 Pulse 72 MON; Pulse Ox 93% ; mlc 23:10 Weight 51 kg / 112.44 lbs (M); mlc 23:20 BP 99 / 55 (auto/); mlc 23:21 Pulse 72 MON; Pulse Ox 94% ; mlc 23:35 BP 102 / 57 (auto/); mlc 23:36 Pulse 74 MON; Pulse Ox 91% ; mlc 23:50 BP 106 / 53 (auto/); mlc 23:51 Pulse 72 MON; Pulse Ox 94% ; mlc 04/26 00:05 BP 99 / 50 (auto/); mlc 00:06 Pulse 74 MON; Pulse Ox 92% ; mlc 00:20 BP 102 / 52 (auto/); mlc 00:21 Pulse 76 MON; Pulse Ox 92% ; mlc 00:35 BP 101 / 50 (auto/); mlc 00:36 Pulse 78 MON; Pulse Ox 93% ; mlc 00:49 BP 112 / 54; Pulse 82; Resp 18; Temp 99.5; Pulse Ox 91% on 4 lpm NC; Pain 0/10; mlc MDM: 04/25 18:28 Fingerstick Blood Sugar Ordered. EDMS 18:35 Fingerstick Blood Sugar Reviewed. pc 18:36 CT Head Without Contrast Ordered. EDMS 19:14 -Blood Culture (Adults Only), peripheral from different site, or from device/port/PICC pc etc. if present ordered. 19:14 Call Respiratory ordered. pc 19:14 Grinding Machine Operator Automatic/Pulse Ox/q 15 min VS ordered. pc 19:14 IV Saline Lock ordered. pc 19:14 Rhythm Strip to chart ordered. pc 19:14 Obtain sample by nasopharyngeal swab ordered. pc 19:15 -Arterial Blood Gas Ordered. EDMS 19:15 -Blood Culture Ordered. EDMS 19:15 B-Type Natiuretic Peptide Ordered. EDMS 19:15 Basic Metabolic Profile Ordered. EDMS 19:15 CBC with Diff Ordered. EDMS 19:15 Cardiac Injury Profile Ordered. EDMS 19:15 Troponin Ordered. EDMS 19:15 -Influenza A&B Rapid Antigen - Nose Ordered. EDMS 19:16 Chest, 1 View Ordered. EDMS 19:17 ECG WITH READING ER PHYS+CARDIAG ordered. EDMS 19:17 Call Respiratory complete. ml3 19:18 -Blood Culture (Adults Only), peripheral from different site, or from device/port/PICC ml3 etc. if present complete. 19:19 BLOOD CULTURES Ordered. EDMS 19:34 Test interpretation: EKG. pc 19:42 Differential Diagnosis: dementia, frequent falls, no acute medical complaints. Plan: pc CT, labs, EKG, CXR. 19:43 Financial registration complete. gjb 19:57 Straight cath ordered. pc 19:57 B-Type Natiuretic Peptide Reviewed. pc 19:57 CBC with Diff Reviewed. pc 19:57 -Influenza A&B Rapid Antigen - Nose Reviewed. pc 19:58 Urine Culture Ordered. EDMS 19:58 Urinalysis Ordered. EDMS 20:02 -Arterial Blood Gas Reviewed. pc 20:54 Basic Metabolic Profile Reviewed. pc 20:54 Cardiac Injury Profile Reviewed. pc 20:54 Troponin Reviewed. pc 21:24 COUNTS INCLUDE 234 BEDS AT THE [facility] Payment Agreement was scanned into [employer] and attached to record. gjb 21:28 CT Chest Without Contrast Ordered. EDMS 22:39 CT Chest Without Contrast Reviewed. pc 22:41 Piperacillin-Tazobactam 2.25 grams IVPB once over 30 mins; dilute in 50mL of NS or D5W pc ordered. 22:42 Lactic Acid (Buenrostro tube on ice) Ordered. EDMS 22:42 BED REQUEST+ADM ordered. EDMS 22:43 Data reviewed: old medical records, vital signs, nurses notes, EKG(s), lab test pc results, all radiology studies and available results. Test interpretation: LAB - all labs as ordered have been reviewed, interpreted and considered in the overall management of the clinical presentation; Arterial blood gas is normal except. pO2: 60 pCO2: 58 X-RAY - interpreted by me, 1 view chest interstitial changes, left worst than right interpreted by Radiologist and personally reviewed, Chest CT; CJ, LLL infiltrates, small left pleural effusion, stable nodule. The patient has been re-examined and re-evaluated. The patient's symptoms have mildly improved after treatment. Physician consultation: Dr. Nolvia Wahl was contacted at 22:44, regarding admission. Disposition: The historical points, examination findings, and any diagnostic results supporting the provided diagnosis, were discussed with the patient or legal guardian. The need for further work-up and/or treatment in the hospital was explained. 23:13 Admission / Observation Status ordered. EDMS 23:13 LOW FAT LOW CHOLESTEROL DIET ordered. EDMS 23:14 LEGIONELLA ANTIGEN URINE Ordered. EDMS 23:14 URINE STREP PNEUMONIAE ANTIGEN Ordered. EDMS 23:15 COMPLETE BLOOD COUNT Ordered. EDMS 23:15 RENAL PROFILE Ordered. EDMS 23:15 SPUTUM CULTURE AND GRAM STAIN Ordered. EDMS 23:15 RESPIRATORY PANEL Ordered. EDMS 23:15 MRSA SCREEN Ordered. EDMS 23:34 Thyroid, ST head+neck US Ordered. EDMS 04/26 00:29 THYROID PROFILE Ordered. EDMS 00:46 ARTERIAL BLOOD GAS Ordered. EDMS EC/27 19:34 Rate is 76 beats/min. Rhythm is regular, Normal Sinus Rhythm. QRS Sherrill is Normal. NV pc interval is normal. QRS interval is normal. QT interval is normal. No Q waves. T waves are Normal. No ST changes noted. Clinical impression: Normal Sinus Rhythm and RAD. Administered Medications: 23:08 Drug: Piperacillin-Tazobactam 2.25 grams [piperacillin-tazobactam 3.375 gram mlc intravenous solution] Route: IVPB; Infused Over: 30 mins; Site: right antecubital; 23:38 Follow up: IV Status: Completed infusion mlc Critical Care Time: 22:43 Critical care time: Bedside Care: 35 minutes, Consultation: 10 minutes, Family pc Intervention: 15 minutes. Total time: 60 minutes Signatures: Dispatcher [employer] Osiel Perkins MD MD pc Lopresti Dali-Esthela, Data Storage Specialist Unit ml3 Shira Sheets, RN RN [id number] Noemi Reese,RN RN [id number] Annie Burrell Jessica,RN RN [id number] Ivana Howell RN mlc The chart was reviewed and I authenticate all verbal orders and agree with the evaluation and treatment provided.Corrections: (The following items were deleted from the chart) 22:46 22:43 Test interpretation: LAB - all labs as ordered have been reviewed, interpreted pc and considered in the overall management of the clinical presentation; Arterial blood gas is normal except. pO2: 60 pCO2: 58 X-RAY - interpreted by me, 1 view chest interstitial changes, left worst than right interpreted by Radiologist and personally reviewed, Chest CT; CJ, LLL infiltrates, small left pleural effusion , pc 23:17 23:15 BLOOD CULTURES ordered. EDMS EDMS 23:17 23:15 BLOOD CULTURES ordered. EDMS EDMS 04/26 00:29 04/25 23:32 THYROID PROFILE ordered. EDMS EDMS Attachments: 21:24 [facility] [place] [facility] [place] Agreement gjb Chart Complete MTDD
[2016-04-28] MEDS: KCL 40MEQ in NS 1000ML 1,000 ML IV SCH (02:03)
[2016-04-28] MEDS: AZITHROMYCIN INJ 500 MG, VIAL MATE ADAPTER 1 EACH in D5W 250 ML IV SCH (02:04)
[2016-04-28] MEDS: cefTRIAXone SOD 2 GM in D5W MINI-BAG PLUS 50 ML IV SCH (03:25)
[2016-04-28 04:00] VITALS: BP 137/70
[2016-04-28] MEDS: SODIUM CHLORIDE 0.9% INJ 10 ML SYR IV SCH ×2 (05:01→18:15)
[2016-04-28 05:40] LABS: CALCIUM LEVEL 9.3 MG/DL (8.8-10.2); CREATININE FOR GFR 1.4 MG/DL (0.55-1.02); GLOMERULAR FILTRATION RATE 38.1 (>32); MAGNESIUM LEVEL 1.6 MG/DL (1.8-2.4); MEAN CORPUSCULAR HEMOGLOBIN 24.4 pg (27.0-33.0); MEAN CORPUSCULAR HGB CONC 30.8 g/dl (32.0-36.5); MEAN CORPUSCULAR VOLUME 79.3 fl (80.0-96.0); PHOSPHORUS LEVEL 1.8 MG/DL (2.5-4.9); RED CELL DISTRIBUTION WIDTH 18.3 % (11.5-14.5)
[2016-04-28 05:44] LABS: POTASSIUM SERUM 5.9 MEQ/L (3.5-5.1)
[2016-04-28 08:00] VITALS: BP 148/67
[2016-04-28] MEDS ORDERED: MAG SULF 1GM/100ML (MAG RUN) 1 GM in APPROPRIATE DILUENT 1 EA IV ONE (08:15)
[2016-04-28] MEDS: HEPARIN SOD (PORCINE) 5000 UNITS/ML VIAL SQ SCH ×2 (09:36→21:45)
[2016-04-28] MEDS: PARoxetine 10MG TABLET PO SCH (09:40)
[2016-04-28 13:37] LABS: CALCIUM LEVEL 10.3 MG/DL (8.8-10.2); CREATININE FOR GFR 1.54 MG/DL (0.55-1.02); GLOMERULAR FILTRATION RATE 34.2 (>32)
[2016-04-28 17:20] VITALS: BP 164/68
--- NOTE | 2016-04-28 20:40 | IPNPDOC ---
Subjective Date Seen The patient was seen on 04/28/16. Subjective Chief Complaint/HPI The patient is a 86-year-old female admitted with a reason for visit of Community Acquired Bacterial Pneumonia. Events since last encounter poor historian given advance dementia. Denied CP/abd pain. K elevated falsely. Objective Physical Examination General Exam: Positive: Alert, No Acute Distress Eye Exam: Positive: PERRLA ENT Exam: Positive: Atraumatic, Mucous membr. moist/pink Neck Exam: Positive: Supple Chest Exam: Positive: Rales, Rhonchi Heart Exam: Positive: Normal S1, Normal S2, Rate Normal Telemetry: Positive: Sinus Abdomen Exam: Positive: Normal bowel sounds, Soft, Negative: Tenderness Extremity Exam: Negative: Edema Skin Exam: Positive: Breakdown Assessment /Plan Problems (1) Community acquired bacterial pneumonia Status: Acute Problem Text: f/u cultures respiratory panel rocephin azithromycin crp wbc (2) Chronic respiratory failure with hypercapnia Status: Chronic Problem Text: abg appreciated con't to monitor (3) Acute respiratory failure with hypoxia Status: Resolved Problem Text: likely 2/2 to PNA o2, treatment as above (4) COPD (chronic obstructive pulmonary disease) Status: Chronic Problem Text: no wheeze, treatment of PNA as above o2 neb prn (5) Acute on chronic renal failure Status: Acute Problem Text: likely 2/2 infection vs dehydration ivf urine studies, us renal if not improve will consult nephrology given hypercalcemia will consider multiple myeloma see bharat (6) Dementia Status: Chronic Problem Text: supportive care, PFS, may need placement (7) Hypertension Status: Chronic Problem Text: hold bp med restart once infection improve monitor BP (8) Hyperlipidemia Status: Chronic Problem Text: outpatient f/u, not on meds (9) Fall Status: Chronic Problem Text: pt once infection improve, tele may need placement (10) Thyroid nodule Status: Chronic Problem Text: thyroid function appreciated US done, need outpatient followup and possible biopsy (11) Hypercalcemia Status: Acute Problem Text: f/u kidney function f/u ionized maris, phos pth, SPEP, UPEP, vit D, Keppa and lamda consider nephro and oncology consult IVF given Plan/VTE VTE Prophylaxis Ordered?: Yes (heparin sq) Disposition Pending clinical improvement, PT, workup for hypercalcemia, and placement VS, I&O, 24H, Fishbone Vital Signs/I&O Vital Signs Date Time Temp Pulse Resp B/P Pulse Ox O2 Delivery O2 Flow Rate FiO2 04/28/16 17:20 96.8 85 19 164/68 91 Nasal Cannula 4.0 I&O- Last 24 Hours up to 6 AM 04/28/16 06:00 Intake Total 2285 ml Balance 2285 ml Laboratory Data 24H LABS Laboratory Tests 2 04/28/16 05:06: Albumin 2.0L, Blood Urea Nitrogen 28H, Creatinine 1.40H, Sodium Level 138, Potassium Level 5.9H, Chloride Level 106, Carbon Dioxide Level 30, Anion Gap 2L , C-Reactive Protein, Quantitative 14.00H, Calcium Level 9.3, Glomerular Filtration Rate 38.1, Magnesium Level 1.6L, Phosphorus Level 1.8#L 04/28/16 12:56: Blood Urea Nitrogen 25H, Creatinine 1.54H, Sodium Level 136, Potassium Level 4.0 #, Chloride Level 100, Carbon Dioxide Level 29, Anion Gap 7L, Calcium Level 10.3H, Glomerular Filtration Rate 34.2 04/28/16 18:27: CBC/BMP Laboratory Tests 04/28/16 05:06 Anion Gap 2 L, Red Blood Count 4.06, Mean Corpuscular Volume 79.3 L, Mean Corpuscular Hemoglobin 24.4 L, Mean Corpuscular Hemoglobin Concent 30.8 L, Red Cell Distribution Width 18.3 H 04/28/16 12:56 Calcium Level 10.3 H Microbiology Microbiology 04/25/16 Blood Culture - Preliminary, Resulted No Growth after 72 hours. All specime... 04/25/16 Blood Culture - Final, Complete Staphylococcus Epidermidis 04/26/16 Gram Stain - Final, Resulted 04/26/16 Sputum Culture, Resulted Pending 04/26/16 MRSA Screen - Final, Complete 04/26/16 Respiratory Virus Panel (PCR) (CRISTA) - Final, Complete 04/25/16 Influenza Virus Type A Antigen - Final, Complete 04/25/16 Influenza Virus Type B Antigen - Final, Complete 04/25/16 Urine Culture - Final, Complete CHANDU FRANZ MD Apr 28, 2016 20:40
[2016-04-28 20:50] VITALS: BP 176/81
[2016-04-29] VITALS (7 sets, daily range): BP systolic 157–171; BP diastolic 71–90; O2SAT 93
[2016-04-29] MEDS: cefTRIAXone SOD 2 GM in D5W MINI-BAG PLUS 50 ML IV SCH (02:44)
[2016-04-29] MEDS: IPRATROPIUM 0.5MG/ALBUTEROL 2.5MG INH SOL UD 3ML (DUONEB)(J7620) NEB SCH ×4 (02:51→19:45)
[2016-04-29] MEDS: SODIUM CHLORIDE 0.9% INJ 10 ML SYR IV SCH ×2 (05:28→17:57)
[2016-04-29 05:57] LABS: MEAN CORPUSCULAR HEMOGLOBIN 24.2 pg (27.0-33.0); MEAN CORPUSCULAR HGB CONC 30.1 g/dl (32.0-36.5); MEAN CORPUSCULAR VOLUME 80.2 fl (80.0-96.0); RED CELL DISTRIBUTION WIDTH 18.4 % (11.5-14.5); WHITE BLOOD COUNT 7.9 K/mm3 (4.0-10.0)
[2016-04-29 06:10] LABS: ALBUMIN 2.2 GM/DL (3.2-5.2); CALCIUM LEVEL 10.2 MG/DL (8.8-10.2); CREATININE FOR GFR 1.29 MG/DL (0.55-1.02); GLOMERULAR FILTRATION RATE 41.9 (>32); MAGNESIUM LEVEL 2.2 MG/DL (1.8-2.4); POTASSIUM SERUM 4.4 MEQ/L (3.5-5.1)
[2016-04-29] MEDS: ACETAMINOPHEN TAB 650MG DOSE (2X325MG) PO PRN (06:36)
[2016-04-29] MEDS: PARoxetine 10MG TABLET PO SCH (08:22)
[2016-04-29] MEDS: HEPARIN SOD (PORCINE) 5000 UNITS/ML VIAL SQ SCH ×2 (08:53→20:40)
[2016-04-29] MEDS ORDERED: AZITHROMYCIN 250 MG TAB PO SCH ×2 (09:00)
--- NOTE | 2016-04-29 17:04 | IPNPDOC ---
Subjective Date Seen The patient was seen on 04/29/16. Subjective Chief Complaint/HPI The patient is a 86-year-old female admitted with a reason for visit of Community Acquired Bacterial Pneumonia. Events since last encounter No acute events overnight. demented, wanted to go home, denied cp/ sob/abd pain/ v/n/f/c Objective Physical Examination General Exam: Positive: Alert, No Acute Distress Eye Exam: Positive: PERRLA ENT Exam: Positive: Atraumatic, Mucous membr. moist/pink Neck Exam: Positive: Supple Chest Exam: Positive: Rales Heart Exam: Positive: Normal S1, Normal S2, Rate Normal Telemetry: Positive: Sinus Abdomen Exam: Positive: Normal bowel sounds, Soft, Negative: Tenderness Extremity Exam: Negative: Edema Skin Exam: Positive: Breakdown Assessment /Plan Problems (1) Community acquired bacterial pneumonia Status: Acute Problem Text: f/u cultures, strep pne, respiratory panel neg rocephin azithromycin crp wbc (2) Chronic respiratory failure with hypercapnia Status: Chronic Problem Text: abg appreciated con't to monitor (3) Acute respiratory failure with hypoxia Status: Resolved Problem Text: likely 2/2 to strep PNA o2, treatment as above (4) COPD (chronic obstructive pulmonary disease) Status: Chronic Problem Text: no wheeze, treatment of PNA as above o2 neb prn (5) Acute on chronic renal failure Status: Acute Problem Text: likely 2/2 infection vs dehydration ivf urine studies, us renal improved given hypercalcemia will consider multiple myeloma see bellow (6) Dementia Status: Chronic Problem Text: supportive care, PFS, may need placement (7) Hypertension Status: Chronic Problem Text: restart norvasc monitor BP (8) Hyperlipidemia Status: Chronic Problem Text: outpatient f/u, not on meds (9) Fall Status: Chronic Problem Text: pt once infection improve, tele may need placement (10) Thyroid nodule Status: Chronic Problem Text: thyroid function appreciated US done, need outpatient followup and possible biopsy (11) Hypercalcemia Status: Acute Problem Text: f/u kidney function f/u ionized maris, phos pth, SPEP, UPEP, vit D, Keppa and lamda consider nephro and oncology consult IVF given Plan/VTE VTE Prophylaxis Ordered?: Yes (heparin sq) Disposition Pending clinical improvement and placement VS, I&O, 24H, Fishbone Vital Signs/I&O Vital Signs Date Time Temp Pulse Resp B/P Pulse Ox O2 Delivery O2 Flow Rate FiO2 04/29/16 13:30 96.7 70 18 162/74 94 Nasal Cannula 4.0 I&O- Last 24 Hours up to 6 AM 04/29/16 06:00 Intake Total 1720 ml Output Total 550 ml Balance 1170 ml Laboratory Data 24H LABS Laboratory Tests 2 04/28/16 18:27: 04/29/16 05:33: Albumin 2.2L, Blood Urea Nitrogen 22H, Creatinine 1.29H, Sodium Level 140, Potassium Level 4.4, Chloride Level 103, Carbon Dioxide Level 32, Anion Gap 5L, C-Reactive Protein, Quantitative 9.61H, Calcium Level 10.2, Glomerular Filtration Rate 41.9, Magnesium Level 2.2, Phosphorus Level 3.0#, Whole Blood Ionized Calcium 5.7H CBC/BMP Laboratory Tests 04/29/16 05:33 Anion Gap 5 L, Red Blood Count 4.35, Mean Corpuscular Volume 80.2, Mean Corpuscular Hemoglobin 24.2 L, Mean Corpuscular Hemoglobin Concent 30.1 L, Red Cell Distribution Width 18.4 H Microbiology Microbiology 04/25/16 Blood Culture - Preliminary, Resulted No Growth after 72 hours. All specime... 04/25/16 Blood Culture - Final, Complete Staphylococcus Epidermidis 04/26/16 Gram Stain - Final, Complete 04/26/16 Sputum Culture - Final, Complete Streptococcus Pneumoniae 04/26/16 MRSA Screen - Final, Complete 04/26/16 Respiratory Virus Panel (PCR) (CRISTA) - Final, Complete 04/25/16 Influenza Virus Type A Antigen - Final, Complete 04/25/16 Influenza Virus Type B Antigen - Final, Complete 04/25/16 Urine Culture - Final, Complete CHANDU FRANZ MD Apr 29, 2016 17:04
[2016-04-29] MEDS: amLODIPine 10 MG TAB PO SCH (17:57)
[2016-04-30 00:15] LABS: ORGANISM ID Not indicated. (.); SPECIMEN SOURCE Urine (.)
[2016-04-30] MEDS: IPRATROPIUM 0.5MG/ALBUTEROL 2.5MG INH SOL UD 3ML (DUONEB)(J7620) NEB SCH ×4 (01:25→19:42)
[2016-04-30] MEDS: cefTRIAXone SOD 2 GM in D5W MINI-BAG PLUS 50 ML IV SCH (02:01)
[2016-04-30 05:40] VITALS: BP 153/68
[2016-04-30] MEDS: SODIUM CHLORIDE 0.9% INJ 10 ML SYR IV SCH ×2 (05:46→18:03)
[2016-04-30 06:14] LABS: MEAN CORPUSCULAR HEMOGLOBIN 24.4 pg (27.0-33.0); MEAN CORPUSCULAR HGB CONC 30.4 g/dl (32.0-36.5); MEAN CORPUSCULAR VOLUME 80.4 fl (80.0-96.0); RED CELL DISTRIBUTION WIDTH 18.3 % (11.5-14.5)
[2016-04-30 06:29] LABS: ALBUMIN 2.2 GM/DL (3.2-5.2); CALCIUM LEVEL 10.2 MG/DL (8.8-10.2); CREATININE FOR GFR 1.12 MG/DL (0.55-1.02); GLOMERULAR FILTRATION RATE 49.3 (>32); MAGNESIUM LEVEL 1.8 MG/DL (1.8-2.4); PHOSPHORUS LEVEL 2.7 MG/DL (2.5-4.9); POTASSIUM SERUM 4.2 MEQ/L (3.5-5.1)
[2016-04-30] MEDS: PARoxetine 10MG TABLET PO SCH (09:26)
[2016-04-30] MEDS: amLODIPine 10 MG TAB PO SCH (09:26)
[2016-04-30] MEDS: HEPARIN SOD (PORCINE) 5000 UNITS/ML VIAL SQ SCH ×2 (09:27→20:25)
[2016-04-30 14:00] VITALS: BP 150/65
--- NOTE | 2016-04-30 16:37 | IPNPDOC ---
Subjective Date Seen The patient was seen on 04/30/16. Subjective Chief Complaint/HPI The patient is a 86-year-old female admitted with a reason for visit of Community Acquired Bacterial Pneumonia. Events since last encounter no acute events overnight, RN reported patient insomnia overnight. Denied cp/sob /n/v/f/c. Patient stated wanting to go home, and she has been admitted for 3 months, clarify only admitted for 6 days. aaox2. does not know why she is admitted to the hospital despite multiple attempts of explaining to her that she has pna and required IV antibiotics. Lack capacity to make medical decision at this point. above was discussed the family George Objective Physical Examination General Exam: Positive: Alert, No Acute Distress Eye Exam: Positive: PERRLA ENT Exam: Positive: Atraumatic, Mucous membr. moist/pink Neck Exam: Positive: Supple Chest Exam: Positive: Rales Heart Exam: Positive: Normal S1, Normal S2, Rate Normal Telemetry: Positive: Sinus Abdomen Exam: Positive: Normal bowel sounds, Soft, Negative: Tenderness Extremity Exam: Negative: Edema Skin Exam: Positive: Breakdown Assessment /Plan Problems (1) Community acquired bacterial pneumonia Status: Acute Problem Text: f/u cultures, strep pne, respiratory panel neg rocephin azithromycin stopped crp wbc (2) Chronic respiratory failure with hypercapnia Status: Chronic Problem Text: abg appreciated con't to monitor (3) Acute respiratory failure with hypoxia Status: Resolved Problem Text: likely 2/2 to strep PNA o2, treatment as above (4) COPD (chronic obstructive pulmonary disease) Status: Chronic Problem Text: no wheeze, treatment of PNA as above o2 neb prn (5) Acute on chronic renal failure Status: Acute Problem Text: likely 2/2 infection vs dehydration ivf urine studies, us renal improved given hypercalcemia will consider multiple myeloma see bharat (6) Dementia Status: Chronic Problem Text: supportive care, PFS, may need placement (7) Hypertension Status: Chronic Problem Text: restart norvasc monitor BP (8) Hyperlipidemia Status: Chronic Problem Text: outpatient f/u, not on meds (9) Fall Status: Chronic Problem Text: pt once infection improve, tele may need placement (10) Thyroid nodule Status: Chronic Problem Text: thyroid function appreciated US done, need outpatient followup and possible biopsy (11) Hypercalcemia Status: Acute Response to Treatment: Improving Problem Text: f/u kidney function f/u ionized maris, phos pth, SPEP, UPEP, vit D, Keppa and lamda consider nephro and oncology consult if not improve IVF given Plan/VTE VTE Prophylaxis Ordered?: Yes (heparin sq) Disposition clinical improvement, PFS home with services vs SNF VS, I&O, 24H, Fishbone Vital Signs/I&O Vital Signs Date Time Temp Pulse Resp B/P Pulse Ox O2 Delivery O2 Flow Rate FiO2 04/30/16 14:00 97.5 79 18 150/65 93 Nasal Cannula 4.0 04/29/16 19:46 93 I&O- Last 24 Hours up to 6 AM 04/30/16 06:00 Intake Total 3890 ml Output Total 2600 ml Balance 1290 ml Laboratory Data 24H LABS Laboratory Tests 2 04/30/16 05:37: Albumin 2.2L, Blood Urea Nitrogen 17, Creatinine 1.12H, Sodium Level 140, Potassium Level 4.2, Chloride Level 102, Carbon Dioxide Level 33H, Anion Gap 5L , C-Reactive Protein, Quantitative 5.04H, Calcium Level 10.2, Glomerular Filtration Rate 49.3, Magnesium Level 1.8, Phosphorus Level 2.7 CBC/BMP Laboratory Tests 04/30/16 05:37 Anion Gap 5 L, Red Blood Count 4.19, Mean Corpuscular Volume 80.4, Mean Corpuscular Hemoglobin 24.4 L, Mean Corpuscular Hemoglobin Concent 30.4 L, Red Cell Distribution Width 18.3 H Microbiology Microbiology 04/25/16 Blood Culture - Preliminary, Resulted No Growth after 72 hours. All specime... 04/25/16 Blood Culture - Final, Complete Staphylococcus Epidermidis 04/26/16 Gram Stain - Final, Complete 04/26/16 Sputum Culture - Final, Complete Streptococcus Pneumoniae 04/26/16 MRSA Screen - Final, Complete 04/26/16 Respiratory Virus Panel (PCR) (CRISTA) - Final, Complete 04/25/16 Influenza Virus Type A Antigen - Final, Complete 04/25/16 Influenza Virus Type B Antigen - Final, Complete 04/25/16 Urine Culture - Final, Complete CHANDU FRANZ MD Apr 30, 2016 16:37
[2016-04-30 20:25] VITALS: BP 169/75
[2016-04-30] MEDS: ACETAMINOPHEN TAB 650MG DOSE (2X325MG) PO PRN (20:26)
[2016-05-01] MEDS: IPRATROPIUM 0.5MG/ALBUTEROL 2.5MG INH SOL UD 3ML (DUONEB)(J7620) NEB SCH ×4 (01:50→19:29)
[2016-05-01] MEDS: cefTRIAXone SOD 2 GM in D5W MINI-BAG PLUS 50 ML IV SCH (02:13)
[2016-05-01] MEDS: SODIUM CHLORIDE 0.9% INJ 10 ML SYR IV SCH ×2 (02:41→18:33)
[2016-05-01] MEDS: SODIUM CHLORIDE 0.9% INJ 10 ML SYR IV PRN (05:35)
[2016-05-01 05:45] VITALS: BP 160/79
[2016-05-01 05:47] LABS: MEAN CORPUSCULAR HEMOGLOBIN 24.8 pg (27.0-33.0); MEAN CORPUSCULAR HGB CONC 30.5 g/dl (32.0-36.5); MEAN CORPUSCULAR VOLUME 81.1 fl (80.0-96.0); RED CELL DISTRIBUTION WIDTH 18.3 % (11.5-14.5); WHITE BLOOD COUNT 5.6 K/mm3 (4.0-10.0)
[2016-05-01 06:26] LABS: CALCIUM LEVEL 10.4 MG/DL (8.8-10.2); CREATININE FOR GFR 0.98 MG/DL (0.55-1.02); GLOMERULAR FILTRATION RATE 57.6 (>32); MAGNESIUM LEVEL 2.1 MG/DL (1.8-2.4); POTASSIUM SERUM 4.3 MEQ/L (3.5-5.1)
[2016-05-01] MEDS: PARoxetine 10MG TABLET PO SCH (09:37)
[2016-05-01] MEDS: amLODIPine 10 MG TAB PO SCH (09:37)
[2016-05-01] MEDS: HEPARIN SOD (PORCINE) 5000 UNITS/ML VIAL SQ SCH ×2 (09:37→20:06)
--- NOTE | 2016-05-01 13:44 | IPNPDOC ---
Subjective Date Seen The patient was seen on 05/01/16. Subjective Chief Complaint/HPI The patient is a 86-year-old female admitted with a reason for visit of Community Acquired Bacterial Pneumonia. Events since last encounter No acute events, denied sob/n/v/abd pain/cp. Wanted to go home Objective Physical Examination General Exam: Positive: Alert, No Acute Distress Eye Exam: Positive: PERRLA ENT Exam: Positive: Atraumatic, Mucous membr. moist/pink Neck Exam: Positive: Supple Chest Exam: Positive: Rales (improved) Heart Exam: Positive: Normal S1, Normal S2, Rate Normal Telemetry: Positive: Sinus Abdomen Exam: Positive: Normal bowel sounds, Soft, Negative: Tenderness Extremity Exam: Negative: Edema Skin Exam: Positive: Breakdown Assessment /Plan Problems (1) Community acquired bacterial pneumonia Status: Acute Problem Text: f/u cultures, strep pne, respiratory panel neg rocephin azithromycin stopped crp wbc (2) Chronic respiratory failure with hypercapnia Status: Chronic Problem Text: abg appreciated con't to monitor (3) Acute respiratory failure with hypoxia Status: Resolved Problem Text: likely 2/2 to strep PNA o2, treatment as above (4) COPD (chronic obstructive pulmonary disease) Status: Chronic Problem Text: no wheeze, treatment of PNA as above o2 neb prn (5) Acute on chronic renal failure Status: Acute Problem Text: likely 2/2 infection vs dehydration ivf urine studies, us renal improved given hypercalcemia will consider multiple myeloma see jonathonow (6) Dementia Status: Chronic Problem Text: supportive care, PFS, may need placement (7) Hypertension Status: Chronic Problem Text: restart norvasc monitor BP (8) Hyperlipidemia Status: Chronic Problem Text: outpatient f/u, not on meds (9) Fall Status: Chronic Problem Text: pt once infection improve, tele initally provided may need placement (10) Thyroid nodule Status: Chronic Problem Text: thyroid function appreciated US done, need outpatient followup and possible biopsy (11) Hypercalcemia Status: Acute Response to Treatment: Improving Problem Text: f/u kidney function f/u ionized maris, phos pth, SPEP, UPEP, vit D, Keppa and lamda consider nephro and oncology consult if not improve IVF given Plan/VTE VTE Prophylaxis Ordered?: Yes (heparin sq) Disposition Pending pt, home arrangement vs placement, workup for hypercalcemia VS, I&O, 24H, Fishbone Vital Signs/I&O Vital Signs Date Time Temp Pulse Resp B/P Pulse Ox O2 Delivery O2 Flow Rate FiO2 05/01/16 09:37 67 160/79 05/01/16 09:00 Nasal Cannula 4.0 05/01/16 05:45 96.7 18 91 04/29/16 19:46 93 I&O- Last 24 Hours up to 6 AM 05/01/16 06:00 Intake Total 1300 ml Output Total 1300 ml Balance 0 ml Laboratory Data 24H LABS Laboratory Tests 2 05/01/16 05:38: Anion Gap 6L, C-Reactive Protein, Quantitative 2.66H, Blood Urea Nitrogen 11, Creatinine 0.98, Sodium Level 144, Potassium Level 4.3, Chloride Level 103, Carbon Dioxide Level 35H, Calcium Level 10.4H, Glomerular Filtration Rate 57.6, Magnesium Level 2.1 CBC/BMP Laboratory Tests 05/01/16 05:38 Calcium Level 10.4 H, Red Blood Count 4.23, Mean Corpuscular Volume 81.1, Mean Corpuscular Hemoglobin 24.8 L, Mean Corpuscular Hemoglobin Concent 30.5 L, Red Cell Distribution Width 18.3 H Microbiology Microbiology 04/25/16 Blood Culture - Final, Complete NO GROWTH AFTER 5 DAYS 04/25/16 Blood Culture - Final, Complete Staphylococcus Epidermidis 04/26/16 Gram Stain - Final, Complete 04/26/16 Sputum Culture - Final, Complete Streptococcus Pneumoniae 04/26/16 MRSA Screen - Final, Complete 04/26/16 Respiratory Virus Panel (PCR) (CRISTA) - Final, Complete 04/25/16 Influenza Virus Type A Antigen - Final, Complete 04/25/16 Influenza Virus Type B Antigen - Final, Complete 04/25/16 Urine Culture - Final, Complete CHANDU FRANZ MD May 01, 2016 13:44
[2016-05-01 14:00] VITALS: BP 121/60
[2016-05-01 15:45] LABS: TOTAL PROTEIN 5.6 GM/DL (6.4-8.2)
[2016-05-01] MEDS: ACETAMINOPHEN TAB 650MG DOSE (2X325MG) PO PRN (20:06)
[2016-05-01 22:00] VITALS: BP 142/65
[2016-05-02] MEDS: IPRATROPIUM 0.5MG/ALBUTEROL 2.5MG INH SOL UD 3ML (DUONEB)(J7620) NEB SCH ×4 (01:23→19:25)
[2016-05-02] MEDS: cefTRIAXone SOD 2 GM in D5W MINI-BAG PLUS 50 ML IV SCH (02:17)
[2016-05-02] MEDS: SODIUM CHLORIDE 0.9% INJ 10 ML SYR IV SCH ×2 (02:53→15:40)
[2016-05-02] MEDS: SODIUM CHLORIDE 0.9% INJ 10 ML SYR IV PRN (05:22)
[2016-05-02 05:46] LABS: MEAN CORPUSCULAR HEMOGLOBIN 24.5 pg (27.0-33.0); MEAN CORPUSCULAR VOLUME 81.5 fl (80.0-96.0); RED CELL DISTRIBUTION WIDTH 18.2 % (11.5-14.5)
[2016-05-02 06:00] VITALS: BP 155/74
[2016-05-02 06:24] LABS: CALCIUM LEVEL 10.1 MG/DL (8.8-10.2); CREATININE FOR GFR 0.99 MG/DL (0.55-1.02); GLOMERULAR FILTRATION RATE 56.9 (>32); MAGNESIUM LEVEL 1.9 MG/DL (1.8-2.4); POTASSIUM SERUM 4.3 MEQ/L (3.5-5.1)
[2016-05-02] MEDS: amLODIPine 10 MG TAB PO SCH (08:28)
[2016-05-02] MEDS: HEPARIN SOD (PORCINE) 5000 UNITS/ML VIAL SQ SCH ×2 (08:29→21:30)
[2016-05-02] MEDS: PARoxetine 10MG TABLET PO SCH (08:29)
[2016-05-02 12:43] LABS: ALBUMIN 2.69 GM/DL (3.29-5.55); GAMMA GLOBULIN % 15.2 % (11.1-18.8)
[2016-05-02] MEDS ORDERED: MOXI1TAB PO (12:57)
[2016-05-02] MEDS ORDERED: LEVO500T32 PO (13:25)
[2016-05-02 14:00] VITALS: BP 149/67
--- NOTE | 2016-05-02 14:24 | DSES ---
DATE OF ADMISSION: 04/25/2016 DATE OF DISCHARGE: 05/02/2016 ADMISSION DIAGNOSES: 1. Community-acquired left upper and lower lobe pneumonia with small left pleural effusion. 2. Altered mental status secondary to pneumonia. 3. Chronic obstructive pulmonary disease (COPD). 4. Hypertension. 5. Chronic dementia. DISCHARGE DIAGNOSIS: 1. Community-acquired bacterial pneumonia. 2. Chronic respiratory failure with hypercapnia. 3. Acute respiratory failure with hypoxia. 4. Chronic obstructive pulmonary disease (COPD). 5. Acute on chronic renal failure. 6. Dementia. 7. Hypertension. 8. Hyperlipidemia. 9. Fall. 10. Thyroid nodule pending outpatient followup with primary with possible biopsy. 11. Acute hypercalcemia, needing followup laboratory work outpatient. CONSULTANTS: None. PROCEDURES AND IMAGING: Patient had a CT head 04/25/2016, which showed vascular calcification, diffuse atrophy and small vessel changes, old lacunar infarction in the head of caudate nucleus on the right, which was unchanged. No acute intracranial abnormalities. On 04/25/2016, patient had a one view chest x-ray which showed mild cardiomegaly , vascular congestion, with diffuse increased interstitial opacity, may be on the basis of congestive heart failure and interstitial edema. On 04/25/2016, patient had a CT chest without contrast, which showed a new infiltrate demonstrated in the left upper and lower lobe, with a small, left-sided pleural effusion, a 7 mm nodule in the superior segment of left lower lobe was seen on a prior study, which is grossly unchanged. Patient also has worsening moderate emphysematous changes bilaterally and stable subcentimeter low attenuation nodule in the left lower lobe of thyroid gland. On 04/26/2016, patient had a peripherally inserted central catheter (PICC) line insertion. On 04/26/2016, patient had a thyroid ultrasound, which showed multiple simple thyroid cysts bilaterally, a solid nodule 1.6 cm in greatest diameter on the right lobe, and demonstrated multinodular thyroid. On 04/26/2016, patient had a renal ultrasound, which showed increased bilateral renal cortical echo consistent with medical renal disease for which clinical correlation is recommended and there was a small, simple-appearing left renal cyst. On 04/27/2016, patient had another peripherally inserted central catheter (PICC) line insertion with site-rite. HISTORY OF PRESENT ILLNESS: An 86-year-old female with history of chronic obstructive pulmonary disease (COPD), hypertension, depression, dementia, lives alone with brother and [id number]-[id number] checking up on her and was brought in by ambulance today after she was found at home by her neighbor looking pale on the floor. Patient was thought to have had some slurred speech and facial drooping and was brought here for evaluation. Patient is demented and unable to provide any history. [id number] was able to provide some history, according to neighbor. Uglejg-iu-jwt states that for the past few months, patient has been unable to remember where she is, has been unable to take care of herself. Her brother, as well as her [id number], has hired [employer] to check up on her two hours per day; however, Hailee works and has a family to take care of. They have also instructed one of the neighbors, Yessenia, to check up on Mrs. Ellis at home at least once a day. Mrs. Ellis has spoken to Yessenia and her brother had dropped her off from [place], but at the time, patient was already at home and had not gone anywhere. She appeared to be much more forgetful and disoriented. She has been falling constantly from bed to the dresser. She has a box spring on the floor without legs and has been unable to get up several times a day. When Yessenia came up to check on her on the day of admission, she was found on the floor looking pale. She denied any chest pain, pressure or tightness, shortness of breath, fever, or chills. She was noted to be unable to care for herself and she usually urinates in her diaper and drops her diaper anywhere in the apartment. According to [id number]-fe-sgy, patient does have a son in [place] who is currently not involved in her care. He is currently living in a half-way house secondary to drug issues in the past. Patient has been unable to bathe herself, unable to perform activities of daily living and was found by a neighbor on the floor today. Patient's family is requesting for placement. In the emergency room, she was found to have left upper and lower lobe pneumonia and a very small pleural effusion. Hospitalist service was called for admission and treatment of community-acquired pneumonia as well as placement, due to inability to care for herself. HOSPITAL COURSE: On day of admission, patient was started on Rocephin, azithromycin, DuoNebs, supplemental oxygen, and intravenous (IV) fluid for her community-acquired pneumonia. Her altered mental status was felt to be secondary to pneumonia. Her medications for hypertension were continued. A respiratory panel was ordered and did not result in any findings. Patient did have a sputum culture; however, it showed Streptococcus pneumonia, which was resistant to erythromycin and penicillin G. It was sensitive to Rocephin, levofloxacin, Avelox, tetracycline, Bactrim, and vancomycin. Patient had acute on chronic renal failure, was felt secondary to infection versus dehydration and fluid was repleted. Patient's blood pressure medication was temporarily on hold, waiting for infection to improve. At this point, patient was found to have hypercalcemia. CT of the chest found that patient had thyroid nodules; therefore, ultrasound was ordered and showed patient does have multinodular goiter. We will defer further testing and biopsy per primary. For her hypercalcemia, serum protein electrophoresis (SPEP), urine protein electrophoresis (UPEP), kappa, lambda were ordered, pending followup outpatient. On day of discharge, 05/02/2016, patient was arranged with 24/7 home care and patient's Avelox was sent for preauthorization and is pending approval at discharge. DISCHARGE CONDITION: Stable. ACTIVITY: As tolerated. DIET: Mechanical soft diet, low fat, low cholesterol. Discharged to home with 24 hours, 7 days per week care. FOLLOWUP: Patient should follow up with primary care within one week and patient may need further testing for her thyroid nodules, as well as her hypercalcemia. If patient develops any fever or chills, any increase trouble breathing, or any increased weakness, dizziness, patient should call primary care provider (PCP) or come to the emergency room. DISCHARGE MEDICATIONS: Continue home medications, including: - Norvasc 10 mg one tablet by mouth daily - Paxil 5 mg by mouth daily - tramadol 50 mg one tablet by mouth twice a day as needed NEW MEDICATIONS: - Avelox (moxifloxacin) 400 mg one tablet by mouth daily for four days Patient has been discussed with attending doctor, Dr. Gutierrez. My preceptor for this patient encounter was Dr. Ana Gutierrez. The preceptor was physically present in the building during the encounter and was fully available as needed. All aspects of the patient interview, examination, medical decision-making process, and medical care plan development were reviewed and approved by the preceptor. The preceptor is aware and concurs with the plan as stated in the body of this note and will attest to such by his/her co-signature. Addendum: Later in the afternoon, it was found that patient doesn't have 24/7 care ready at home, therefore patient's discharge was on hold. ADDENDUM: Originally we were planning to give patient Avelox; however it was not approved by insurance. Therefore, we will change that to levofloxacin 500 mg one tablet by mouth daily for 4 days. Patient has been discussed with attending doctor, Dr. Gutierrez. My preceptor for this patient encounter was Dr. Ana Gutierrez. The preceptor was physically present in the building during the encounter and was fully available. As needed, all aspects of the patient interview, examination, medical decision making process, and medical care plan development were reviewed and approved by the preceptor. The preceptor is aware and concurs with the plan as stated in the body of this note and will attest to such by his cosignature. Addendum dictated: BRUNILDA 05/02/2016 1326 Addendum transcribed: cd 05/02/2016 1329 I have both independently examined this patient as well as reviewed the note. I have discussed in detail with the resident the findings and plan of treatment as documented in the residents note. I will continue to follow the patient and offer further guidance to the patients care as necessary during this hospital stay. DC on hold b/c patient needs 24/7 care at home. Family is only able to provider 14-16 hours of care with no supervision at night. Yet patient has proven to be quiet alerted and agitated at times at night while hospitalized. Therefore, patient is not yet safe for DC. Ana CLAYTON
--- NOTE | 2016-05-02 14:40 | IPNPDOC ---
Subjective Date Seen The patient was seen on 05/02/16. Subjective Chief Complaint/HPI The patient is a 86-year-old female admitted with a reason for visit of Community Acquired Bacterial Pneumonia. Events since last encounter no acute events overnight. Denied f/c/sob/abd pain/cp/n/v. wanted to go home. Objective Physical Examination General Exam: Positive: Alert, No Acute Distress Eye Exam: Positive: PERRLA ENT Exam: Positive: Atraumatic, Mucous membr. moist/pink Neck Exam: Positive: Supple Chest Exam: Positive: Rales (improved) Heart Exam: Positive: Normal S1, Normal S2, Rate Normal Telemetry: Positive: Sinus Abdomen Exam: Positive: Normal bowel sounds, Soft, Negative: Tenderness Extremity Exam: Negative: Edema Skin Exam: Positive: Breakdown Assessment /Plan Problems (1) Community acquired bacterial pneumonia Status: Acute Problem Text: f/u cultures, strep pne, respiratory panel neg rocephin azithromycin stopped crp wbc (2) Chronic respiratory failure with hypercapnia Status: Chronic Problem Text: abg appreciated con't to monitor (3) Acute respiratory failure with hypoxia Status: Resolved Problem Text: likely 2/2 to strep PNA o2, treatment as above (4) COPD (chronic obstructive pulmonary disease) Status: Chronic Problem Text: no wheeze, treatment of PNA as above o2 neb prn (5) Acute on chronic renal failure Status: Acute Problem Text: likely 2/2 infection vs dehydration ivf urine studies, us renal improved given hypercalcemia will consider multiple myeloma see bharat (6) Dementia Status: Chronic Problem Text: supportive care, PFS, may need placement (7) Hypertension Status: Chronic Problem Text: restart norvasc monitor BP (8) Hyperlipidemia Status: Chronic Problem Text: outpatient f/u, not on meds (9) Fall Status: Chronic Problem Text: pt once infection improve, tele initally provided may need placement (10) Thyroid nodule Status: Chronic Problem Text: thyroid function appreciated US done, need outpatient followup and possible biopsy (11) Hypercalcemia Status: Acute Response to Treatment: Improving Problem Text: f/u kidney function f/u ionized maris, phos pth, SPEP, UPEP, vit D, Keppa and lamda consider nephro and oncology consult if not improve IVF given Plan/VTE VTE Prophylaxis Ordered?: Yes (heparin sq) Plan/Urinary Catheter Reason for insertion/continuin: Other-document below Disposition need 24/7 care at home vs placement VS, I&O, 24H, [place] Vital Signs/I&O Vital Signs Date Time Temp Pulse Resp B/P Pulse Ox O2 Delivery O2 Flow Rate FiO2 05/02/16 14:00 97.8 72 18 149/67 96 Nasal Cannula 4.0 04/29/16 19:46 93 I&O- Last 24 Hours up to 6 AM 05/02/16 05:59 Intake Total 5210 ml Output Total 5300 ml Balance -90 ml Laboratory Data 24H LABS Laboratory Tests 2 05/01/16 15:08: Albumin 2.69L, Albumin (%) 48.0L, Quijl-4-Toascqqpx (%) 7.0H, Euflt-1-Tngojgtqo (%) 16.3H, Gamma Globulins (%) 15.2, Bndhk-0-Yaccwouxa 0.39, Mrres-8-Vgibordlo 0.91, Gamma Globulins 0.85, Protein Electrophoresis Interpret SEE COMMENT, Beta- 1-Globulin 0.42, Nscf-7-Lisxgfmf (%) 7.5H, Wjcw-4-Ddjrofmt 0.34, Beta-2- Globulin (%) 6.0, Total Protein 5.6L, Urine Total Protein 9.4 05/02/16 05:20: Anion Gap 5L, C-Reactive Protein, Quantitative 1.96H, Blood Urea Nitrogen 10, Creatinine 0.99, Sodium Level 141, Potassium Level 4.3, Chloride Level 100, Carbon Dioxide Level 36H, Calcium Level 10.1, Glomerular Filtration Rate 56.9, Magnesium Level 1.9 CBC/BMP Laboratory Tests 05/02/16 05:20 Calcium Level 10.1, Red Blood Count 4.33, Mean Corpuscular Volume 81.5, Mean Corpuscular Hemoglobin 24.5 L, Mean Corpuscular Hemoglobin Concent 30.0 L, Red Cell Distribution Width 18.2 H Microbiology Microbiology 04/25/16 Blood Culture - Final, Complete NO GROWTH AFTER 5 DAYS 04/25/16 Blood Culture - Final, Complete Staphylococcus Epidermidis 04/26/16 Gram Stain - Final, Complete 04/26/16 Sputum Culture - Final, Complete Streptococcus Pneumoniae 04/26/16 MRSA Screen - Final, Complete 04/26/16 Respiratory Virus Panel (PCR) (CRISTA) - Final, Complete 04/25/16 Influenza Virus Type A Antigen - Final, Complete 04/25/16 Influenza Virus Type B Antigen - Final, Complete 04/25/16 Urine Culture - Final, Complete CHANDU FRANZ MD May 02, 2016 14:40
[2016-05-02 22:00] VITALS: BP 148/72
[2016-05-03] MEDS: IPRATROPIUM 0.5MG/ALBUTEROL 2.5MG INH SOL UD 3ML (DUONEB)(J7620) NEB SCH ×4 (02:00→19:43)
[2016-05-03] MEDS: LevoFLOXacin 500 MG TABLET PO SCH (05:31)
[2016-05-03 05:58] LABS: MEAN CORPUSCULAR HEMOGLOBIN 24.4 pg (27.0-33.0); MEAN CORPUSCULAR HGB CONC 30.4 g/dl (32.0-36.5); MEAN CORPUSCULAR VOLUME 80.3 fl (80.0-96.0)
[2016-05-03 06:00] VITALS: BP 131/58
[2016-05-03 06:14] LABS: CALCIUM LEVEL 10.2 MG/DL (8.8-10.2); CREATININE FOR GFR 1.02 MG/DL (0.55-1.02); MAGNESIUM LEVEL 1.9 MG/DL (1.8-2.4); PERCENT SATURATION 15.2 % (13.2-37.4); POTASSIUM SERUM 4.2 MEQ/L (3.5-5.1)
[2016-05-03] MEDS: FERROUS GLUCONATE 324 MG TAB PO SCH (08:40)
[2016-05-03] MEDS: amLODIPine 10 MG TAB PO SCH (08:41)
[2016-05-03] MEDS: PARoxetine 10MG TABLET PO SCH (08:41)
[2016-05-03] MEDS: HEPARIN SOD (PORCINE) 5000 UNITS/ML VIAL SQ SCH ×2 (08:42→20:08)
--- NOTE | 2016-05-03 15:03 | IPN ---
DATE: 05/03/2016 Time patient was seen was this morning at 10:00 The patient has been seen and examined at beside. No acute events overnight. The patient still insisted that she would like to go home; however, she still appears to be demented and only oriented to person and place, not time. The patient denies any discomfort anywhere. Denies any fever or chills. Denies any chest pain, trouble breathing, abdominal pain, nausea, vomiting, diarrhea, constipation, or any problem with urination. The patient denies any other current new complaints. PHYSICAL EXAMINATION: VITAL SIGNS: Temperature 98, pulse 77, respirations 18, blood pressure 131/58, oxygen saturation 91% on 4 liters nasal cannula. The patient's total input yesterday was 2950 and output was 5700 with a balance of -2750. GENERAL: The patient is a pleasant, elderly female who was alert, awake and oriented to person and place only. Resting comfortably in her chair with the head elevated at 60 degrees. HEENT: Normocephalic, atraumatic. Extraocular muscles intact. Mucosa moist. NECK: Supple. No neck lymphadenopathy. CARDIOVASCULAR: Regular rate and rhythm. S1, S2. No murmurs. LUNGS: Clear to auscultation bilaterally. No wheezes, rales or rhonchi. ABDOMEN: Positive bowel sounds. Soft, nontender, nondistended. No peritoneal signs. No ecchymoses. EXTREMITIES: No edema, clubbing or cyanosis. SKIN: Warm and dry. NEUROLOGIC: Cranial nerves II through XII intact. No focal neurological deficits. LABORATORY DATA: WBC 10, hemoglobin 10.4, hematocrit 34.3, platelet count of 265, MCV was 18.3. Sodium 138, potassium 4.2, chloride 100, bicarbonate 35, BUN 10, creatinine 1.02, GFR 55, glucose 79, calcium 10.2, magnesium 1.9, iron 46 and was low, TIBC 303, transferrin pending, transferrin saturation 15.2%, ferritin 72, C-reactive protein 1.57, improved from the day before. ASSESSMENT AND PLAN: 86-year-old female admitted for community acquired bacterial pneumonia. 1. Community-acquired bacterial pneumonia. Culture shows Streptococcus pneumoniae. Azithromycin has been stopped. The patient has been started on levofloxacin 500 mg one tablet by mouth daily yesterday for 3 more days. The patient was about to be discharged yesterday; however, found that she did not qualify for discharge due to that she does not have 24 hour care at home. Therefore, currently, the patient does not have access and therefore we will continue the patient on oral medication. 2. Chronic obstructive pulmonary disease (COPD). Currently on 4 liters of nasal cannula. Baseline is 3 liters. We will continue to monitor. 3. Acute on chronic renal failure secondary to infection versus dehydration, resolved. Continue to monitor. 4. Dementia. Appears to be chronic. Continue to monitor. 5. Newly diagnosed primary hyperparathyroidism with a PTH of 210.9. SPEP has been negative, shows acute inflammation. 24 hour urine calcium has been ordered. We will followup. The patient will need outpatient endocrinology followup. 6. History of hypertension. Restart Norvasc. 7. Hyperlipidemia, stable. Followup as outpatient. 8. Falls, currently stable. 9. Thyroid nodule. Ultrasound was done and found multinodular cyst, possibly needs outpatient endocrine followup with biopsy. 10. Hypercalcemia. Was found to have primary hyperparathyroidism. Considering endocrinology consultation. May also need rule out for malignancy possibly outpatient. 11. Deep vein thrombosis (DVT) prophylaxis. On heparin 5000 units subcutaneous every 12 hours. 12. Iron deficiency anemia recently diagnosed. Start the patient on ferrous gluconate. DISPOSITION: The patient is currently stable. Did not go home yesterday due to lack of 24 hour care. Also recently diagnosed with primary hyperparathyroidism. The patient may also need further workup to rule out malignancy and may need outpatient endocrinology followup. The patient has been discussed with attending doctor, Dr. Anguiano. My preceptor for this patient encounter was Dr. Anguiano. The preceptor was physically present in the building during the encounter and was fully available. As needed, all aspects of the patient interview, examination, medical decision making process, and medical care plan development were reviewed and approved by the preceptor. The preceptor is aware and concurs with the plan as stated in the body of this note and will attest to such by his/her cosignature.
[2016-05-03] MEDS: ACETAMINOPHEN TAB 650MG DOSE (2X325MG) PO PRN (16:45)
[2016-05-03 22:00] VITALS: BP 154/69
[2016-05-04] MEDS: IPRATROPIUM 0.5MG/ALBUTEROL 2.5MG INH SOL UD 3ML (DUONEB)(J7620) NEB SCH ×4 (01:52→19:30)
[2016-05-04] MEDS: ACETAMINOPHEN TAB 650MG DOSE (2X325MG) PO PRN ×2 (01:58→12:36)
[2016-05-04] MEDS: LevoFLOXacin 500 MG TABLET PO SCH (05:53)
[2016-05-04 06:00] VITALS: BP 150/70
[2016-05-04 06:16] LABS: MEAN CORPUSCULAR HGB CONC 31.3 g/dl (32.0-36.5); MEAN CORPUSCULAR VOLUME 79.9 fl (80.0-96.0); RED CELL DISTRIBUTION WIDTH 18.5 % (11.5-14.5); WHITE BLOOD COUNT 9.4 K/mm3 (4.0-10.0)
[2016-05-04 06:25] LABS: CALCIUM LEVEL 9.7 MG/DL (8.8-10.2); CREATININE FOR GFR 1.18 MG/DL (0.55-1.02); GLOMERULAR FILTRATION RATE 46.5 (>32); MAGNESIUM LEVEL 1.8 MG/DL (1.8-2.4); POTASSIUM SERUM 4.2 MEQ/L (3.5-5.1)
[2016-05-04] MEDS: HEPARIN SOD (PORCINE) 5000 UNITS/ML VIAL SQ SCH ×2 (10:24→19:58)
[2016-05-04] MEDS: VITAMIN D (CHOLECALCIFEROL) 400 INTERNATIONAL UNITS TAB PO SCH (10:24)
[2016-05-04] MEDS: PARoxetine 10MG TABLET PO SCH (10:25)
[2016-05-04] MEDS: amLODIPine 10 MG TAB PO SCH (10:25)
[2016-05-04] MEDS: FERROUS GLUCONATE 324 MG TAB PO SCH (10:25)
[2016-05-04 15:08] LABS: CALCIUM, URINE < 5.0 MG/DL
[2016-05-04 15:14] LABS: TOTAL VOLUME, URINE 2500 ML
[2016-05-04 22:00] VITALS: BP 150/67
[2016-05-05] MEDS: IPRATROPIUM 0.5MG/ALBUTEROL 2.5MG INH SOL UD 3ML (DUONEB)(J7620) NEB SCH ×4 (01:42→20:52)
[2016-05-05] MEDS: LevoFLOXacin 500 MG TABLET PO SCH (05:57)
[2016-05-05 06:00] VITALS: BP 128/62
[2016-05-05 06:21] LABS: MEAN CORPUSCULAR HEMOGLOBIN 24.9 pg (27.0-33.0); MEAN CORPUSCULAR HGB CONC 31.1 g/dl (32.0-36.5); MEAN CORPUSCULAR VOLUME 80.1 fl (80.0-96.0); RED CELL DISTRIBUTION WIDTH 18.5 % (11.5-14.5); WHITE BLOOD COUNT 8.8 K/mm3 (4.0-10.0)
[2016-05-05 06:43] LABS: CALCIUM LEVEL 9.8 MG/DL (8.8-10.2); CREATININE FOR GFR 1.28 MG/DL (0.55-1.02); GLOMERULAR FILTRATION RATE 42.3 (>32); POTASSIUM SERUM 4.4 MEQ/L (3.5-5.1)
[2016-05-05] MEDS: VITAMIN D (CHOLECALCIFEROL) 400 INTERNATIONAL UNITS TAB PO SCH (09:24)
[2016-05-05] MEDS: HEPARIN SOD (PORCINE) 5000 UNITS/ML VIAL SQ SCH ×2 (09:24→21:00)
[2016-05-05] MEDS: FERROUS GLUCONATE 324 MG TAB PO SCH (09:24)
[2016-05-05] MEDS: amLODIPine 10 MG TAB PO SCH (09:25)
[2016-05-05] MEDS: PARoxetine 10MG TABLET PO SCH (09:25)
[2016-05-05 14:00] VITALS: BP 129/61
[2016-05-06] MEDS: IPRATROPIUM 0.5MG/ALBUTEROL 2.5MG INH SOL UD 3ML (DUONEB)(J7620) NEB SCH ×4 (01:54→19:25)
[2016-05-06] MEDS: LevoFLOXacin 500 MG TABLET PO SCH (05:19)
[2016-05-06 06:20] VITALS: BP 151/70
[2016-05-06 06:32] LABS: MEAN CORPUSCULAR HEMOGLOBIN 24.8 pg (27.0-33.0); MEAN CORPUSCULAR HGB CONC 30.5 g/dl (32.0-36.5); MEAN CORPUSCULAR VOLUME 81.3 fl (80.0-96.0); RED CELL DISTRIBUTION WIDTH 18.7 % (11.5-14.5); WHITE BLOOD COUNT 6.2 K/mm3 (4.0-10.0)
[2016-05-06 06:44] LABS: CALCIUM LEVEL 9.5 MG/DL (8.8-10.2); CREATININE FOR GFR 1.19 MG/DL (0.55-1.02); POTASSIUM SERUM 4.6 MEQ/L (3.5-5.1)
[2016-05-06] MEDS: FERROUS GLUCONATE 324 MG TAB PO SCH (09:28)
[2016-05-06] MEDS: amLODIPine 10 MG TAB PO SCH (09:28)
[2016-05-06] MEDS: PARoxetine 10MG TABLET PO SCH (09:28)
[2016-05-06] MEDS: VITAMIN D (CHOLECALCIFEROL) 400 INTERNATIONAL UNITS TAB PO SCH (09:28)
[2016-05-06] MEDS: HEPARIN SOD (PORCINE) 5000 UNITS/ML VIAL SQ SCH ×2 (09:29→20:17)
[2016-05-06 14:00] VITALS: BP 129/74
[2016-05-06] MEDS: TEMAZEPAM 7.5 MG CAP PO PRN (20:17)
[2016-05-07] MEDS: IPRATROPIUM 0.5MG/ALBUTEROL 2.5MG INH SOL UD 3ML (DUONEB)(J7620) NEB SCH ×5 (02:00→19:34)
[2016-05-07 05:50] VITALS: BP 148/65
[2016-05-07 06:08] LABS: MEAN CORPUSCULAR HEMOGLOBIN 24.4 pg (27.0-33.0); MEAN CORPUSCULAR HGB CONC 29.9 g/dl (32.0-36.5); MEAN CORPUSCULAR VOLUME 81.6 fl (80.0-96.0); RED CELL DISTRIBUTION WIDTH 18.6 % (11.5-14.5); WHITE BLOOD COUNT 8.8 K/mm3 (4.0-10.0)
[2016-05-07 06:25] LABS: CALCIUM LEVEL 9.9 MG/DL (8.8-10.2); CREATININE FOR GFR 1.12 MG/DL (0.55-1.02); GLOMERULAR FILTRATION RATE 49.3 (>32); POTASSIUM SERUM 4.5 MEQ/L (3.5-5.1)
[2016-05-07] MEDS: amLODIPine 10 MG TAB PO SCH (10:19)
[2016-05-07] MEDS: PARoxetine 10MG TABLET PO SCH (10:19)
[2016-05-07] MEDS: VITAMIN D (CHOLECALCIFEROL) 400 INTERNATIONAL UNITS TAB PO SCH (10:19)
[2016-05-07] MEDS: FERROUS GLUCONATE 324 MG TAB PO SCH (10:20)
[2016-05-07] MEDS: HEPARIN SOD (PORCINE) 5000 UNITS/ML VIAL SQ SCH ×2 (10:20→20:22)
[2016-05-07] MEDS: TEMAZEPAM 7.5 MG CAP PO PRN (20:22)
[2016-05-08] MEDS: IPRATROPIUM 0.5MG/ALBUTEROL 2.5MG INH SOL UD 3ML (DUONEB)(J7620) NEB SCH ×4 (01:14→19:23)
[2016-05-08 05:30] VITALS: BP 129/60
[2016-05-08] MEDS: amLODIPine 10 MG TAB PO SCH (09:25)
[2016-05-08] MEDS: FERROUS GLUCONATE 324 MG TAB PO SCH (09:25)
[2016-05-08] MEDS: HEPARIN SOD (PORCINE) 5000 UNITS/ML VIAL SQ SCH ×2 (09:25→22:18)
[2016-05-08] MEDS: PARoxetine 10MG TABLET PO SCH (09:26)
[2016-05-08] MEDS: VITAMIN D (CHOLECALCIFEROL) 400 INTERNATIONAL UNITS TAB PO SCH (09:26)
[2016-05-09] MEDS: IPRATROPIUM 0.5MG/ALBUTEROL 2.5MG INH SOL UD 3ML (DUONEB)(J7620) NEB SCH ×4 (02:00→20:00)
[2016-05-09 06:00] VITALS: BP 155/67
[2016-05-09] MEDS: HEPARIN SOD (PORCINE) 5000 UNITS/ML VIAL SQ SCH ×2 (10:03→20:48)
[2016-05-09] MEDS: PARoxetine 10MG TABLET PO SCH (10:03)
[2016-05-09] MEDS: amLODIPine 10 MG TAB PO SCH (10:04)
[2016-05-09] MEDS: FERROUS GLUCONATE 324 MG TAB PO SCH (10:04)
[2016-05-09] MEDS: VITAMIN D (CHOLECALCIFEROL) 400 INTERNATIONAL UNITS TAB PO SCH (10:04)
[2016-05-09] MEDS: TEMAZEPAM 7.5 MG CAP PO PRN (20:47)
[2016-05-10] MEDS: IPRATROPIUM 0.5MG/ALBUTEROL 2.5MG INH SOL UD 3ML (DUONEB)(J7620) NEB SCH ×4 (01:31→20:40)
[2016-05-10 06:00] VITALS: BP 132/60
[2016-05-10] MEDS ORDERED: MOM 30ML SUSPENSION UDC PO PRN (08:45)
[2016-05-10] MEDS: HEPARIN SOD (PORCINE) 5000 UNITS/ML VIAL SQ SCH ×2 (09:38→20:12)
[2016-05-10] MEDS: PARoxetine 10MG TABLET PO SCH (09:39)
[2016-05-10] MEDS: FERROUS GLUCONATE 324 MG TAB PO SCH (09:39)
[2016-05-10] MEDS: amLODIPine 10 MG TAB PO SCH (09:39)
[2016-05-10] MEDS: VITAMIN D (CHOLECALCIFEROL) 400 INTERNATIONAL UNITS TAB PO SCH (09:39)
[2016-05-10 09:58] LABS: MEAN CORPUSCULAR HEMOGLOBIN 25.1 pg (27.0-33.0); MEAN CORPUSCULAR HGB CONC 30.3 g/dl (32.0-36.5); MEAN CORPUSCULAR VOLUME 82.8 fl (80.0-96.0); RED CELL DISTRIBUTION WIDTH 18.8 % (11.5-14.5)
[2016-05-10 10:13] LABS: CALCIUM LEVEL 10.4 MG/DL (8.8-10.2); CREATININE FOR GFR 0.99 MG/DL (0.55-1.02); GLOMERULAR FILTRATION RATE 56.9 (>32); POTASSIUM SERUM 5.1 MEQ/L (3.5-5.1)
--- NOTE | 2016-05-10 16:29 | IPN ---
DATE: 05/10/2016 Time patient was seen was this morning at 9:00 a.m. The patient has been seen and examined at beside. The patient continues to be mildly demented and has poor memory. She keeps asking why she is still in the hospital. I have explained to her that she is being kept in the hospital due to she is unsafe to go home and she needs 24 hour care; however, she does not understand. I recommended for her to ask our social worker palliative care and her brother for more detailed information. Otherwise, she denies that she has any fevers, chills, chest pain, trouble breathing, abdominal pain, nausea, vomiting, diarrhea or constipation or any problem with urination or any other current new complaints. PHYSICAL EXAMINATION: VITAL SIGNS: Temperature 97, pulse 69, respirations 16, blood pressure 132/60, oxygen saturation 94% on 4 liters of nasal cannula. GENERAL: The patient is a thin-looking, elderly, demented female who was alert, awake and oriented times two, to person and place but not to year. Does not appear to be in distress. Lying comfortably in bed with head elevated 45 degree angle. HEENT: Normocephalic, atraumatic. Extraocular muscles intact. Mucosa moist. NECK: Supple. No neck lymphadenopathy. CARDIOVASCULAR: Regular rate and rhythm. 2/6 systolic heart murmur. Normal S1, S2. LUNGS: Clear to auscultation bilaterally. No wheezes, rales or rhonchi. ABDOMEN: Positive bowel sounds. Soft, nontender, nondistended. No peritoneal signs. No ecchymoses. EXTREMITIES: No edema, clubbing or cyanosis. SKIN: Warm and dry. NEUROLOGIC: Cranial nerves II through XII intact. No focal neurological deficits. LABORATORY DATA: WBC 8, hemoglobin 11.1, hematocrit 36.6 with a platelet count of 297 and MCV of 82.9. Sodium was 140, potassium 5.1, chloride 101, bicarbonate 37, BUN 18, creatinine 0.99. Calcium was 10.4. The patient did have a 24-hour urine calcium done on 05/04/2016 shows that the patient's calcium level was 4.5. Normal should be around 45. In the past few weeks, the patient's PTH was also measured and was severely elevated to be 210.9. No new cultures. No new imaging. ASSESSMENT AND PLAN: 86-year-old female admitted for community acquired pneumonia and presented with: 1. Community-acquired bacterial pneumonia. Culture initially showed Streptococcus pneumoniae. The patient received a course of Azithromycin and levofloxacin, which was discontinued. The patient denies any trouble breathing currently. 2. 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 Will possibly need an outpatient endocrine followup. WE will also obtain a 24 hour urine creatinine for calculating calcium creatinine clearance ratio to make the diagnosis. 3. Chronic obstructive pulmonary disease (COPD). On 4 liters of nasal cannula. Baseline is 3 liters. We will continue to monitor. 4. Acute on chronic renal failure secondary to infection versus dehydration, resolved. Today's creatinine is 0.9. 5. 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 The patient also appears to have poor memory. 6. History of hypertension. The patient is on Norvasc. 7. Hyperlipidemia, stable. 8. Falls, currently stable. 9. Thyroid nodule. Ultrasound was done and found polynodule cyst. Possibly needs outpatient endocrine followup with biopsy. 10. Deep vein thrombosis (DVT) prophylaxis on heparin 5000 units subcutaneous every 12 hours. 11. Mild iron deficiency anemia. Started on ferrous gluconate. DISPOSITION: The patient is currently stable. Still appears to be demented and she did not have 24 hour care the last time. We will try to discharge the patient; however, patient and family services (PFS) is trying to obtain a bed for the patient. At this point, we will continue to monitor the patient. 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 The patient has been discussed with attending doctor, Dr. Rodriguez. My preceptor for this patient encounter was Dr. Rodriguez. The preceptor was physically present in the building during the encounter and was fully available. As needed, all aspects of the patient interview, examination, medical decision making process, and medical care plan development were reviewed and approved by the preceptor. The preceptor is aware and concurs with the plan as stated in the body of this note and will attest to such by his/her cosignature.
[2016-05-10] MEDS: TEMAZEPAM 7.5 MG CAP PO PRN (20:12)
[2016-05-11] MEDS: IPRATROPIUM 0.5MG/ALBUTEROL 2.5MG INH SOL UD 3ML (DUONEB)(J7620) NEB SCH ×2 (02:44→07:58)
[2016-05-11 06:00] VITALS: BP 127/62
[2016-05-11 09:48] VITALS: BP 127/62
[2016-05-11] MEDS: HEPARIN SOD (PORCINE) 5000 UNITS/ML VIAL SQ SCH (09:48)
[2016-05-11] MEDS: PARoxetine 10MG TABLET PO SCH (09:48)
[2016-05-11] MEDS: amLODIPine 10 MG TAB PO SCH (09:48)
[2016-05-11] MEDS: FERROUS GLUCONATE 324 MG TAB PO SCH (09:48)
[2016-05-11] MEDS: VITAMIN D (CHOLECALCIFEROL) 400 INTERNATIONAL UNITS TAB PO SCH (09:48)
[2016-05-11] MEDS ORDERED: FERR32TA PO (11:58)
[2016-05-11] MEDS ORDERED: VITA400T PO (11:58)
== END 2016-05-11 15:40 | disposition home health service (06) | DRG 193 ==
LOC: M ED 18:06 → M PCU 23:09 → M ED INP 23:10 → M PCU 04-26 00:58 → M MSPAV 04-28 17:19 → M OR 04-29 08:36 → M MSPAV 04-29 08:40
PROVIDERS: ADMIT General Practice; ATTEND Hospitalist
PROC: 05HB33Z Insertion of Infusion Device into Right Basilic Vein, Percutaneous Approach (ICD-10-PCS; principal; 2016-04-26)
PROC: 05HB33Z Insertion of Infusion Device into Right Basilic Vein, Percutaneous Approach (ICD-10-PCS; 2016-04-27)
DX: J13 Pneumonia due to Streptococcus pneumoniae (principal); J96.01 Acute respiratory failure with hypoxia; R64 Cachexia; J96.12 Chronic respiratory failure with hypercapnia; N17.9 Acute kidney failure, unspecified; J44.9 Chronic obstructive pulmonary disease, unspecified; I12.9 Hypertensive chronic kidney disease with stage 1 through stage 4 chronic kidney disease, or unspecified chronic kidney disease; F32.9 Major depressive disorder, single episode, unspecified; E04.1 Nontoxic single thyroid nodule; E21.0 Primary hyperparathyroidism; F03.90 Unspecified dementia, unspecified severity, without behavioral disturbance, psychotic disturbance, mood disturbance, and anxiety; D50.9 Iron deficiency anemia, unspecified; N18.3 Chronic kidney disease, stage 3 (moderate); E78.5 Hyperlipidemia, unspecified; E86.0 Dehydration; F41.9 Anxiety disorder, unspecified; M54.9 Dorsalgia, unspecified; Z99.81 Dependence on supplemental oxygen; Z79.899 Other long term (current) drug therapy; Z79.891 Long term (current) use of opiate analgesic; Z90.710 Acquired absence of both cervix and uterus

== ENCOUNTER 2016-10-18 12:03 | Emergency (ER) | payer MEDICARE, MEDICAID ==
[~2016-10-18] VITALS: Ht 160 cm; Wt 65.4 kg
[~2016-10-18 12:03] MED LIST changes: +AZIT-12 PO; -AZIT250T3 PO; +FERR32TA PO; +LEVO500T3 PO; +MOXI1TAB PO; -PARO20TA2 PO; +PARO20TA3 PO; +PAXI10TA12 PO; -PRED10TA PO; +PRED10TA2 PO; +TRAM50TA2 PO; +VITA400T PO
[2016-10-18] MEDS ORDERED: APAP325T4 PO (12:19)
[2016-10-18] MEDS ORDERED: MULT1TAB10 PO (12:19)
[2016-10-18] MEDS ORDERED: GUAISYP5 PO (12:19)
[2016-10-18] MEDS ORDERED: PAXI20TA29 PO (12:19)
[2016-10-18] MEDS ORDERED: DULC10SU2 PR (12:19)
[2016-10-18] MEDS ORDERED: LIDOCAINE 2% W/EPIN INJ 20ML **PRES FREE INJ ONE (14:00)
--- NOTE | 2016-10-18 14:06 | REP ---
CT study of the cervical spine without contrast: History: Injury in a fall. Technique: Helical scanning is acquired and overlapping 2 mm high resolution axial images were generated and reviewed at bone and soft tissue window settings. Coronal and sagittal multiplanar re-formations images are generated. CT findings: There is no evidence of cervical spine element fracture. No skull base fracture is seen. Cervical vertebral body heights are preserved. Alignment is normal. Facet joints are normally aligned bilaterally at each cervical level on multiplanar re-formations images. There is no evidence of intraspinal or paraspinal hematoma. No extra vertebral abnormality is seen. There are mild degenerative disc and facet changes. The lung apices are clear with some evidence of COPD. Impression: Negative CT study of the cervical spine without contrast. No fracture seen. Signed by Dennis Shanks MD 10/18/2016 01:58 P
--- NOTE | 2016-10-18 14:09 | REP ---
Head CT without contrast: History: Head injury. Comparison study: April 25, 2016. Findings: Digital lateral auto design detailer radiograph is unremarkable. Bone window settings demonstrate an intact bony calvarium. There is some vascular calcification present bilaterally. There is moderate diffuse cerebral atrophy. There are small vessel changes. There is a small area of low density in the left thalamus and another in the head of the caudate nucleus on the right consistent with old lacunar infarcts. These are unchanged. No cortical infarct, hemorrhage, extra-axial fluid collection, mass or midline shift is seen. 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 No acute intracranial abnormality. Signed by Dennis Shanks MD 10/18/2016 02:59 P
[2016-10-18] MEDS ORDERED: KEFL500C17 PO (15:03)
[2016-10-18 15:10] VITALS: BP 197/86
== END 2016-10-18 15:13 | disposition home or self-care (01) ==
LOC: M ED 12:03
DX: S09.90XA Unspecified injury of head, initial encounter (principal); S01.81XA Laceration without foreign body of other part of head, initial encounter; W05.0XXA Fall from non-moving wheelchair, initial encounter; Y92.019 Unspecified place in single-family (private) house as the place of occurrence of the external cause; Y93.89 Activity, other specified; Y99.8 Other external cause status; N18.9 Chronic kidney disease, unspecified; F33.9 Major depressive disorder, recurrent, unspecified; Z79.899 Other long term (current) drug therapy

== ENCOUNTER → 2017-03-08 | Outpatient (REF) | payer MEDICARE, MEDICAID ==
[2017-03-08 12:35] LABS: HEMATOCRIT 41.3 % (36.0-47.0); HEMOGLOBIN 13.2 g/dl (12.0-16.0); MEAN CORPUSCULAR HEMOGLOBIN 28.3 pg (27.0-33.0); MEAN CORPUSCULAR VOLUME 88.4 fl (80.0-96.0); PLATELET COUNT, AUTOMATED 350 10^3/uL (150-450); RED BLOOD COUNT 4.67 10^6/uL (4.00-5.40); RED CELL DISTRIBUTION WIDTH 13.4 % (11.5-14.5); WHITE BLOOD COUNT 14.5 10^3/uL (4.0-10.0)
[2017-03-08 13:20] LABS: ANION GAP 8 MEQ/L (8-16); BLOOD UREA NITROGEN 29 MG/DL (7-18); CALCIUM LEVEL 11.3 MG/DL (8.8-10.2); CARBON DIOXIDE LEVEL 29 MEQ/L (21-32); CHLORIDE LEVEL 103 MEQ/L (98-107); FREE T4 1.16 NG/DL (0.76-1.46); GLOMERULAR FILTRATION RATE 32.6 (>32); GLUCOSE, FASTING 89 MG/DL (83-110); POTASSIUM SERUM 4.8 MEQ/L (3.5-5.1); SODIUM LEVEL 140 MEQ/L (136-145)
== END ==
LOC: SKLAB8 11:36
DX: R63.4 Abnormal weight loss (principal)
CPT/HCPCS: 84443

== ENCOUNTER → 2017-05-30 | Outpatient (REF) | payer MEDICARE, MEDICAID ==
[2017-05-30 10:56] LABS: APPEARANCE, URINE HAZY (CLEAR); BACTERIA, URINE AUTO NEGATIVE (NEGATIVE); BILIRUBIN, URINE AUTO NEGATIVE (NEGATIVE); BLOOD, URINE BLOOD NEGATIVE (NEGATIVE); COLOR, URINE YELLOW (YELLOW); GLUCOSE, URINE (UA) AUTO NEGATIVE (NEGATIVE); KETONE, URINE AUTO NEGATIVE (NEGATIVE); LEUKOCYTE ESTERASE, URINE AUTO 3+ (NEGATIVE); MUCUS, URINE SMALL (NEGATIVE); NITRITE, URINE AUTO NEGATIVE (NEGATIVE); PROTEIN, URINE AUTO NEGATIVE (NEGATIVE); RBC, URINE AUTO 4 /HPF (0-3); SQUAMOUS EPITHELIAL CELL UR AU 0 /HPF (0-6); UROBILINOGEN, URINE AUTO 0.2 mg/dL (0.0-2.0); WBC, URINE AUTO 143 /HPF (0-3)
== END ==
LOC: SKLAB8 10:31
DX: R50.9 Fever, unspecified (principal)
CPT/HCPCS: 81001

== ENCOUNTER → 2017-09-27 | Outpatient (CLI) | payer MEDICARE, MEDICAID | LOC: M LAB 23:08 | DX: R11.10 Vomiting, unspecified (principal); R41.0 Disorientation, unspecified; R35.0 Frequency of micturition | CPT/HCPCS: 71045 ==

== ENCOUNTER → 2017-09-28 | Outpatient (REF) | payer MEDICARE, MEDICAID ==
[2017-09-28 00:57] LABS: HEMATOCRIT 36.9 % (36.0-47.0); HEMOGLOBIN 11.8 g/dl (12.0-15.5); MEAN CORPUSCULAR VOLUME 90.7 fl (80.0-96.0); PLATELET COUNT, AUTOMATED 168 10^3/uL (150-450); RED BLOOD COUNT 4.07 10^6/uL (4.00-5.40); RED CELL DISTRIBUTION WIDTH 13.8 % (11.5-14.5); WHITE BLOOD COUNT 12.1 10^3/uL (4.0-10.0)
[2017-09-28 01:37] LABS: ANION GAP 7 MEQ/L (8-16); BLOOD UREA NITROGEN 24 MG/DL (7-18); CALCIUM LEVEL 10.3 MG/DL (8.8-10.2); CARBON DIOXIDE LEVEL 30 MEQ/L (21-32); CHLORIDE LEVEL 105 MEQ/L (98-107); CREATININE FOR GFR 1.76 MG/DL (0.55-1.30); GLOMERULAR FILTRATION RATE 29.2 (>32); GLUCOSE, FASTING 117 MG/DL (70-100); POTASSIUM SERUM 4.3 MEQ/L (3.5-5.1); SODIUM LEVEL 142 MEQ/L (136-145)
[2017-09-28 03:57] LABS: APPEARANCE, URINE CLEAR (CLEAR); BACTERIA, URINE AUTO NEGATIVE (NEGATIVE); BILIRUBIN, URINE AUTO NEGATIVE (NEGATIVE); BLOOD, URINE BLOOD 2+ (NEGATIVE); COLOR, URINE YELLOW (YELLOW); GLUCOSE, URINE (UA) AUTO NEGATIVE (NEGATIVE); KETONE, URINE AUTO NEGATIVE (NEGATIVE); LEUKOCYTE ESTERASE, URINE AUTO 1+ (NEGATIVE); NITRITE, URINE AUTO NEGATIVE (NEGATIVE); PROTEIN, URINE AUTO NEGATIVE (NEGATIVE); RBC, URINE AUTO 13 /HPF (0-3); SQUAMOUS EPITHELIAL CELL UR AU 0 /HPF (0-6); UROBILINOGEN, URINE AUTO 0.2 mg/dL (0.0-2.0); WBC, URINE AUTO 4 /HPF (0-3)
== END ==
LOC: SKLAB8 00:25
DX: G47.51 Confusional arousals (principal); R11.10 Vomiting, unspecified; R50.9 Fever, unspecified
CPT/HCPCS: 80048

== ENCOUNTER → 2017-11-27 | Outpatient (CLI) | payer MEDICARE | LOC: M RAD 13:07 | DX: M79.89 Other specified soft tissue disorders (principal) | CPT/HCPCS: 93971 ==

== ENCOUNTER 2017-12-01 12:00 | Outpatient (REF) | payer MEDICARE ==
[2017-12-04 09:42] LABS: ANION GAP 6 MEQ/L (8-16); BLOOD UREA NITROGEN 42 MG/DL (7-18); CALCIUM LEVEL 10.8 MG/DL (8.8-10.2); CARBON DIOXIDE LEVEL 33 MEQ/L (21-32); CHLORIDE LEVEL 102 MEQ/L (98-107); CREATININE FOR GFR 2.82 MG/DL (0.55-1.30); GLUCOSE, FASTING 65 MG/DL (70-100); POTASSIUM SERUM 5.1 MEQ/L (3.5-5.1); SODIUM LEVEL 141 MEQ/L (136-145)
== END 2017-12-04 ==
LOC: SKLAB8 12:00
DX: E83.52 Hypercalcemia (principal); N18.9 Chronic kidney disease, unspecified
CPT/HCPCS: 36415

== ENCOUNTER → 2017-12-01 | Outpatient (REF) | payer MEDICARE ==
[2017-12-01 16:06] LABS: ANION GAP 5 MEQ/L (8-16); BLOOD UREA NITROGEN 26 MG/DL (7-18); CALCIUM LEVEL 10.7 MG/DL (8.8-10.2); CARBON DIOXIDE LEVEL 31 MEQ/L (21-32); CHLORIDE LEVEL 105 MEQ/L (98-107); CREATININE FOR GFR 2.03 MG/DL (0.55-1.30); GLOMERULAR FILTRATION RATE 24.8 (>32); GLUCOSE, FASTING 109 MG/DL (70-100); NT-PRO BNP 1417 PG/ML (<450); POTASSIUM SERUM 5.2 MEQ/L (3.5-5.1); SODIUM LEVEL 141 MEQ/L (136-145)
== END ==
LOC: SKLAB8 08:00
DX: N18.9 Chronic kidney disease, unspecified (principal); F03.90 Unspecified dementia, unspecified severity, without behavioral disturbance, psychotic disturbance, mood disturbance, and anxiety
CPT/HCPCS: 80048

== ENCOUNTER → 2017-12-18 | Outpatient (REF) | payer MEDICARE ==
[2017-12-18 10:41] LABS: ANION GAP 5 MEQ/L (8-16); BLOOD UREA NITROGEN 28 MG/DL (7-18); CALCIUM LEVEL 11.1 MG/DL (8.8-10.2); CARBON DIOXIDE LEVEL 31 MEQ/L (21-32); CHLORIDE LEVEL 105 MEQ/L (98-107); CREATININE FOR GFR 1.57 MG/DL (0.55-1.30); GLOMERULAR FILTRATION RATE 33.3 (>32); GLUCOSE, FASTING 97 MG/DL (70-100); POTASSIUM SERUM 4.7 MEQ/L (3.5-5.1); SODIUM LEVEL 141 MEQ/L (136-145)
== END ==
LOC: SKLAB8 07:00
DX: N18.9 Chronic kidney disease, unspecified (principal); F03.90 Unspecified dementia, unspecified severity, without behavioral disturbance, psychotic disturbance, mood disturbance, and anxiety
CPT/HCPCS: 80048

== ENCOUNTER → 2017-12-19 | Outpatient (CLI) | payer MEDICARE ==
[2017-12-20 10:28] LABS: BASO # 0.1 10^3/uL (0.0-0.2); BASO % 0.6 % (0.0-1.0); EOS # 0.3 10^3/uL (0.0-0.50); EOS % 4.1 % (0.0-3.0); HEMATOCRIT 37.3 % (36.0-47.0); HEMOGLOBIN 11.5 g/dl (12.0-15.5); IMMATURE GRANULOCYTE % 1.3 % (0-3.0); LYMPH # 1.1 10^3/uL (1.5-4.5); LYMPH % 13.6 % (24.0-44.0); MEAN CORPUSCULAR HEMOGLOBIN 28.5 pg (27.0-33.0); MEAN CORPUSCULAR HGB CONC 30.8 g/dl (32.0-36.5); MEAN CORPUSCULAR VOLUME 92.6 fl (80.0-96.0); MONO # 0.4 10^3/uL (0.0-0.8); MONO % 5.6 % (0.0-5.0); NEUTROPHILS # 5.9 10^3/uL (1.8-7.7); NEUTROPHILS % 74.8 % (36.0-66.0); PLATELET COUNT, AUTOMATED 384 10^3/uL (150-450); RED BLOOD COUNT 4.03 10^6/uL (4.00-5.40); RED CELL DISTRIBUTION WIDTH 13.7 % (11.5-14.5); WHITE BLOOD COUNT 7.8 10^3/uL (4.0-10.0)
[2017-12-20 10:41] LABS: ANION GAP 6 MEQ/L (8-16); BLOOD UREA NITROGEN 22 MG/DL (7-18); CALCIUM LEVEL 11.1 MG/DL (8.8-10.2); CARBON DIOXIDE LEVEL 30 MEQ/L (21-32); CHLORIDE LEVEL 103 MEQ/L (98-107); CREATININE FOR GFR 1.54 MG/DL (0.55-1.30); GLOMERULAR FILTRATION RATE 34.1 (>32); GLUCOSE, FASTING 113 MG/DL (70-100); POTASSIUM SERUM 5.2 MEQ/L (3.5-5.1); SODIUM LEVEL 139 MEQ/L (136-145)
== END ==
LOC: SKLAB8 20:44
DX: R50.9 Fever, unspecified (principal); J90 Pleural effusion, not elsewhere classified; R91.8 Other nonspecific abnormal finding of lung field
CPT/HCPCS: 71045

== ENCOUNTER → 2017-12-22 | Outpatient (REF) | payer MEDICARE ==
[2017-12-22 08:57] LABS: ANION GAP 7 MEQ/L (8-16); BLOOD UREA NITROGEN 24 MG/DL (7-18); CALCIUM LEVEL 10.7 MG/DL (8.8-10.2); CARBON DIOXIDE LEVEL 29 MEQ/L (21-32); CHLORIDE LEVEL 105 MEQ/L (98-107); CREATININE FOR GFR 1.55 MG/DL (0.55-1.30); GLOMERULAR FILTRATION RATE 33.8 (>32); GLUCOSE, FASTING 81 MG/DL (70-100); POTASSIUM SERUM 5.5 MEQ/L (3.5-5.1); SODIUM LEVEL 141 MEQ/L (136-145)
== END ==
LOC: SKLAB8 08:00
DX: D64.9 Anemia, unspecified (principal)
CPT/HCPCS: 80048

== ENCOUNTER → 2017-12-25 | Outpatient (REF) | payer MEDICARE ==
[2017-12-25 14:14] LABS: ANION GAP 4 MEQ/L (8-16); BLOOD UREA NITROGEN 23 MG/DL (7-18); CALCIUM LEVEL 10.6 MG/DL (8.8-10.2); CARBON DIOXIDE LEVEL 33 MEQ/L (21-32); CHLORIDE LEVEL 102 MEQ/L (98-107); CREATININE FOR GFR 1.61 MG/DL (0.55-1.30); GLOMERULAR FILTRATION RATE 32.4 (>32); GLUCOSE, FASTING 116 MG/DL (70-100); POTASSIUM SERUM 4.7 MEQ/L (3.5-5.1); SODIUM LEVEL 139 MEQ/L (136-145)
== END ==
LOC: SKLAB8 08:00
DX: D64.9 Anemia, unspecified (principal)
CPT/HCPCS: 80048

== ENCOUNTER → 2018-02-02 | Outpatient (REF) | payer MEDICARE ==
[2018-02-02 09:39] LABS: BASO # 0.1 10^3/uL (0.0-0.2); BASO % 0.6 % (0.0-1.0); EOS # 0.3 10^3/uL (0.0-0.50); EOS % 3.5 % (0.0-3.0); HEMATOCRIT 41.1 % (36.0-47.0); HEMOGLOBIN 12.3 g/dl (12.0-15.5); IMMATURE GRANULOCYTE % 0.8 % (0-3.0); LYMPH # 1.3 10^3/uL (1.5-4.5); LYMPH % 16.8 % (24.0-44.0); MEAN CORPUSCULAR HEMOGLOBIN 27.6 pg (27.0-33.0); MEAN CORPUSCULAR HGB CONC 29.9 g/dl (32.0-36.5); MEAN CORPUSCULAR VOLUME 92.4 fl (80.0-96.0); MONO # 0.4 10^3/uL (0.0-0.8); MONO % 5.3 % (0.0-5.0); NEUTROPHILS # 5.9 10^3/uL (1.8-7.7); RED BLOOD COUNT 4.45 10^6/uL (4.00-5.40); RED CELL DISTRIBUTION WIDTH 13.7 % (11.5-14.5)
[2018-02-02 09:53] LABS: ANION GAP 7 MEQ/L (8-16); BLOOD UREA NITROGEN 19 MG/DL (7-18); CALCIUM LEVEL 10.4 MG/DL (8.8-10.2); CARBON DIOXIDE LEVEL 28 MEQ/L (21-32); CHLORIDE LEVEL 106 MEQ/L (98-107); CREATININE FOR GFR 1.56 MG/DL (0.55-1.30); GLOMERULAR FILTRATION RATE 33.6 (>32); GLUCOSE, FASTING 83 MG/DL (70-100); POTASSIUM SERUM 4.7 MEQ/L (3.5-5.1); SODIUM LEVEL 141 MEQ/L (136-145)
[2018-02-02 10:25] LABS: POS COUNT POS FLAG
== END ==
LOC: SKLAB8 06:22
DX: I51.7 Cardiomegaly (principal); I27.0 Primary pulmonary hypertension; J90 Pleural effusion, not elsewhere classified
CPT/HCPCS: 71045

== ENCOUNTER → 2018-02-03 | Outpatient (REF) | payer MEDICARE ==
[2018-02-03 19:16] LABS: BASO % 0.4 % (0.0-1.0); EOS # 0.3 10^3/uL (0.0-0.50); EOS % 2.9 % (0.0-3.0); HEMATOCRIT 38.7 % (36.0-47.0); HEMOGLOBIN 11.5 g/dl (12.0-15.5); IMMATURE GRANULOCYTE % 0.5 % (0-3.0); LYMPH # 1.6 10^3/uL (1.5-4.5); LYMPH % 16.6 % (24.0-44.0); MEAN CORPUSCULAR HEMOGLOBIN 27.5 pg (27.0-33.0); MEAN CORPUSCULAR HGB CONC 29.7 g/dl (32.0-36.5); MEAN CORPUSCULAR VOLUME 92.6 fl (80.0-96.0); MONO # 0.6 10^3/uL (0.0-0.8); NEUTROPHILS # 6.9 10^3/uL (1.8-7.7); NEUTROPHILS % 73.6 % (36.0-66.0); PLATELET COUNT, AUTOMATED 277 10^3/uL (150-450); RED BLOOD COUNT 4.18 10^6/uL (4.00-5.40); RED CELL DISTRIBUTION WIDTH 13.6 % (11.5-14.5); WHITE BLOOD COUNT 9.3 10^3/uL (4.0-10.0)
[2018-02-03 19:38] LABS: ANION GAP 6 MEQ/L (8-16); BLOOD UREA NITROGEN 16 MG/DL (7-18); CARBON DIOXIDE LEVEL 30 MEQ/L (21-32); CHLORIDE LEVEL 101 MEQ/L (98-107); CREATININE FOR GFR 1.46 MG/DL (0.55-1.30); GLOMERULAR FILTRATION RATE 36.2 (>32); GLUCOSE, FASTING 92 MG/DL (70-100); NT-PRO BNP 410 PG/ML (<450); POTASSIUM SERUM 4.9 MEQ/L (3.5-5.1); SODIUM LEVEL 137 MEQ/L (136-145)
== END ==
LOC: SKLAB8 19:03
DX: I50.9 Heart failure, unspecified (principal)
CPT/HCPCS: 80048

== ENCOUNTER → 2018-02-03 | Outpatient (REF) | payer MEDICARE | LOC: M LAB 16:00 → SKLAB8 16:00 | DX: I50.9 Heart failure, unspecified (principal) ==

== ENCOUNTER → 2018-02-24 | Outpatient (REF) | payer MEDICARE ==
[~2018-02-24] MED LIST changes: -AMLO10TA2 PO; +AMLO10TA4 PO; -AMLO5TAB2 PO; +AMLO5TAB4 PO; +APAP325T4 PO; +DULC10SU2 PR; +GUAISYP5 PO; +KEFL500C17 PO; +MULT1TAB10 PO; +PAXI20TA29 PO
[2018-02-24 09:01] LABS: BASO # 0.1 10^3/uL (0.0-0.2); BASO % 0.8 % (0.0-1.0); EOS # 0.3 10^3/uL (0.0-0.50); EOS % 4.4 % (0.0-3.0); HEMATOCRIT 36.9 % (36.0-47.0); HEMOGLOBIN 11.1 g/dl (12.0-15.5); LYMPH # 1.2 10^3/uL (1.5-4.5); LYMPH % 16.7 % (24.0-44.0); MEAN CORPUSCULAR HEMOGLOBIN 27.2 pg (27.0-33.0); MEAN CORPUSCULAR HGB CONC 30.1 g/dl (32.0-36.5); MEAN CORPUSCULAR VOLUME 90.4 fl (80.0-96.0); MONO # 0.6 10^3/uL (0.0-0.8); MONO % 7.9 % (0.0-5.0); NEUTROPHILS # 5.2 10^3/uL (1.8-7.7); NEUTROPHILS % 69.7 % (36.0-66.0); PLATELET COUNT, AUTOMATED 353 10^3/uL (150-450); RED BLOOD COUNT 4.08 10^6/uL (4.00-5.40); WHITE BLOOD COUNT 7.4 10^3/uL (4.0-10.0)
[2018-02-24 09:24] LABS: CREATININE FOR GFR 1.53 MG/DL (0.55-1.30); GLOMERULAR FILTRATION RATE 34.3 (>32); POTASSIUM SERUM 4.6 MEQ/L (3.5-5.1)
--- NOTE | 2018-02-24 14:08 | REP ---
Clinical: Edema. Technique: PA and lateral. Comparison: 02/02/2018. Findings: Mediastinum and cardiac silhouette are stable. Lung lopez demonstrate diffuse chronic interstitial changes and fibrosis. Superimposed pulmonary vascular congestion along with subtle bibasilar atelectasis and small pleural effusions are identified. No pneumothorax. Skeletal structures intact. Impression: Chronic changes. Superimposed pulmonary vascular congestion with bibasilar atelectasis and small pleural effusions. Electronically Signed by Nj Roger MD 02/24/2018 02:00 P
== END ==
LOC: M LAB 07:48 → SKLAB8 07:48
PROVIDERS: ATTEND Clinical Nurse Specialist Adult Health
DX: J90 Pleural effusion, not elsewhere classified (principal); R60.9 Edema, unspecified

== ENCOUNTER → 2018-03-02 | Outpatient (CLI) | payer MEDICARE ==
[~2018-03-02] MED LIST changes: -AMLO10TA4 PO; +AMLO10TA5 PO; -AMLO5TAB4 PO; +AMLO5TAB6 PO
--- NOTE | 2018-03-02 15:17 | REP ---
Duplex extremity venous ultrasound: Left lower extremity. History: Cellulitis. Question DVT. Findings: The deep veins are anechoic and fully compressible from the groin to the popliteal fossa in the left lower extremity. Color flow imaging is homogeneous. Spectral Doppler interrogation demonstrates intact respiratory variation in flow and normal manual augmentation of flow. There is no evidence of deep vein thrombosis. Impression: Negative left lower extremity duplex venous ultrasound. No evidence of deep vein thrombosis. Electronically Signed by Dennis Shanks MD 03/02/2018 03:08 P
== END ==
LOC: M RAD 14:07
PROVIDERS: ATTEND Clinical Nurse Specialist Adult Health
DX: R22.42 Localized swelling, mass and lump, left lower limb (principal)

== ENCOUNTER 2018-03-11 23:59 | Emergency (ER) | payer MEDICARE ==
[~2018-03-11] VITALS: Ht 157.5 cm; Wt 74.0 kg
[2018-03-12 00:05] VITALS: BP 136/78
--- NOTE | 2018-03-12 01:16 | REPVR ---
EXAM: CT Head Without Contrast EXAM DATE/TIME: 03/12/2018 12:57 AM CLINICAL HISTORY: 88 years old, female; Injury or trauma; Fall; Additional info: Trauma, AMS TECHNIQUE: Axial computed tomography images of the head/brain without contrast. All CT scans at this facility use at least one of these dose optimization techniques: automated exposure control; mA and/or kV adjustment per patient size (includes targeted exams where dose is matched to clinical indication); or iterative reconstruction. COMPARISON: CT Head without contrast 10/18/2016 1:33 PM FINDINGS: Brain: There is no acute intracranial abnormality. Moderate prominence of ventricles and sulci representing volume loss. Moderate small vessel ischemic changes are seen. There is no mass, midline shift, or mass effect. Buenrostro-white matter differentiation is preserved. There is no evidence of hemorrhage. There is no extra-axial fluid collection. Basal cisterns are patent. Ventricles: See Brain Finding. Bones/joints: Normal. No acute fracture. Sinuses: Normal as visualized. No acute sinusitis. Mastoid air cells: Normal as visualized. No mastoid effusion. Soft tissues: Mild right frontal soft tissue swelling. IMPRESSION: 1. Moderate volume loss and small vessel ischemic changes. 2. No acute intracranial abnormality. 3.Mild right frontal soft tissue swelling. Electronically signed by: Jayne Vargas On 03/12/2018 01:15:58 AM
--- NOTE | 2018-03-12 01:19 | REPVR ---
EXAM: CT Cervical Spine Without Contrast EXAM DATE/TIME: 03/12/2018 12:57 AM CLINICAL HISTORY: 88 years old, female; Injury or trauma; Fall; Initial encounter; Blunt trauma; Additional info: Trauma, AMS TECHNIQUE: Axial computed tomography images of the cervical spine without intravenous contrast. All CT scans at this facility use at least one of these dose optimization techniques: automated exposure control; mA and/or kV adjustment per patient size (includes targeted exams where dose is matched to clinical indication); or iterative reconstruction. Coronal and sagittal reformatted images were created and reviewed. COMPARISON: CT Spine,cervical w/o contrast 10/18/2016 1:33 PM FINDINGS: Vertebrae: Diffuse demineralization of the bones. Multilevel degenerative changes with internal supine formation and facet joint arthropathy. Mild loss of disc spaces with disc vacuum phenomena and C5-C6 and C6-C7. Discs/Spinal canal/Neural foramina: Posterior disc osteophyte formation and C4/C5, C5/C6 and C6/C7 causing mild central spinal canal stenosis. Bilateral emphysematous changes. Soft tissues: Unremarkable. Thyroid: Tiny low-attenuation areas in bilateral thyroid lobes Lungs: See Discs/spinal Canal/neural Foramina Finding. IMPRESSION: No acute finding. Electronically signed by: Jayne Vargas On 03/12/2018 01:19:15 AM
--- NOTE | 2018-03-12 01:25 | REPVR ---
EXAM: CT Maxillofacial Without Contrast EXAM DATE/TIME: 03/12/2018 12:57 AM CLINICAL HISTORY: 88 years old, female; Injury or trauma; Fall; Initial encounter; Blunt trauma (contusions or hematomas); Cheek bone and eyelid; Left; Lower right; Additional info: Trauma, AMS TECHNIQUE: Axial computed tomography images of the face without intravenous contrast. All CT scans at this facility use at least one of these dose optimization techniques: automated exposure control; mA and/or kV adjustment per patient size (includes targeted exams where dose is matched to clinical indication); or iterative reconstruction. Coronal and sagittal reformatted images were created and reviewed. COMPARISON: No relevant prior studies available. FINDINGS: Orbits: No acute intraorbital abnormality. Globes are unremarkable. Sinuses: Normal. No air-fluid levels. Bones/joints: No acute fracture. Soft tissues: Mild right inferior frontal, left premaxillary and lateral fascial soft tissue swelling. IMPRESSION: No acute fracture or dislocation. Mild right inferior frontal, left premaxillary and lateral fascial soft tissue swelling. Electronically signed by: Jayne Vargas On 03/12/2018 01:24:49 AM
[2018-03-12] MEDS ORDERED: LIDOCAINE VISCOUS 2% SOLN 15ML UDC SS ONE (04:00)
== END 2018-03-12 04:31 | disposition home or self-care (01) ==
LOC: M ED 23:59
DX: K12.0 Recurrent oral aphthae (principal); S00.83XA Contusion of other part of head, initial encounter; W18.39XA Other fall on same level, initial encounter; Y92.128 Other place in nursing home as the place of occurrence of the external cause; Z79.899 Other long term (current) drug therapy